=== PATIENT | male | born 1955 | race Caucasian/White ===

== ENCOUNTER 2017-10-05 08:50 | Inpatient (IN) | payer SELFPAY ==
[2017-10-05] MEDS ORDERED: Diltiazem 125 MG/25 ML ONE (09:03)
[2017-10-05 09:10] LABS: #Basophils 0.1 thou/uL (0.0-0.2); #Eosinphils 0.2 thou/uL (0.0-0.7); #Lymphocytes 1.8 thou/uL (1.20-3.40); #Monocytes 0.6 thou/uL (0.11-0.59); #Neutrophils 3.9 thou/uL (1.40-6.50); %Basophils 1.3 % (0.0-1.0); %Eosinophils 2.4 % (0.0-10.0); %Monocytes 9.5 % (0.0-10.0); %Neutrophils 59.8 % (42.0-75.0); Hemoglobin 14.6 g/dL (14.0-18.0); Mean Corpuscular HGB CONC 33.4 g/dL (32.0-36.0); Mean Corpuscular Hemoglobin 30.1 pg (27.0-31.0); Mean Corpuscular Volume 90.1 fl (80.0-94.0); Mean Platelet Volume 7.8 fL (7.4-10.4); Platelet Count 201 thou/uL (130-400); RBC Distribution Width 13.2 % (11.5-14.5); Red Blood Cell (RBC) Count 4.85 mill/uL (4.70-6.10); White Blood Cell (WBC) Count 6.5 thou/uL (4.8-10.8)
[2017-10-05 09:25] LABS: Prothrombin Time 13.5 SEC (12.0-14.7)
[2017-10-05 09:26] LABS: PTT 26.8 SEC (22.9-36.1)
--- NOTE | 2017-10-05 09:30 | RAD ---
CHEST PA AND LATERAL: Date: 10/05/17 HISTORY: 61-year-old male with history of shortness of breath. COMPARISON: 04/07/16. FINDINGS: Heart size is normal. Stable increased bronchovascular markings bilaterally. Left granuloma calcifica tions. IMPRESSION: No acute intrathoracic disease. Stable from prior study. No confluent pneumonia, overt edema, pleural effusion, or other acute process. POS: EDWIN[facility]
[2017-10-05 09:34] LABS: ALT (SGPT) 95 U/L (8-55); AST (SGOT) 49 U/L (5-34); Albumin 4.2 g/dL (3.5-5.0); Alkaline Phosphatase 79 U/L (40-150); Anion Gap 13 mmol/L (10-20); BUN (Urea Nitrogen) 16 mg/dL (8.4-25.7); Bilirubin, Total 0.7 mg/dL (0.2-1.2); CK (CPK) 34 U/L (30-200); Calc. Creatinine Clearance 0 mL/min (70-130); Calcium 9.4 mg/dL (7.8-10.44); Carbon Dioxide 23 mmol/L (22-29); Chloride 105 mmol/L (98-107); Estimated GFR-MDRD 83; Globulin 2.8 g/dL (2.4-3.5); Glucose 190 mg/dL (70-105); Lipase 28 U/L (8-78); Potassium 4.4 mmol/L (3.5-5.1); Sodium 137 mmol/L (136-145)
[2017-10-05 09:39] LABS: CKMB 1.5 ng/mL (0-6.6)
[2017-10-05] MEDS ORDERED: Sodium Chloride 0.9% 1,000 ML IV SCH (09:45)
[2017-10-05] MEDS ORDERED: Diltiazem 125 MG in Sodium Chloride 0.9% 100 ML IVPB SCH ×2 (09:45→12:15)
[2017-10-05] MEDS ORDERED: Enoxaparin Sodium 100 MG/ML SYRINGE ONE (10:18)
[2017-10-05 10:28] LABS: Magnesium 1.7 mg/dL (1.6-2.6); Phosphorus 3.7 mg/dL (2.3-4.7)
[2017-10-05] MEDS ORDERED: Ondansetron ODT 4 MG TAB SL PRN (11:44)
[2017-10-05] MEDS ORDERED: Ondansetron HCl/PF 4 MG/2 ML Vial IVP PRN ×2 (11:44→12:05)
[2017-10-05] MEDS ORDERED: HYDROcodone/Acetaminophen 5/325 mg Tablet PO PRN (12:05)
[2017-10-05] MEDS ORDERED: Artificial Tears 18 DROP/0.9 ML EA EYE PRN (12:05)
[2017-10-05] MEDS ORDERED: Eucerin (Mineral Oil/Petrolatum,White) 30 gm Jar TOP PRN (12:05)
[2017-10-05] MEDS ORDERED: Chloraseptic Spray 180 ml Bottle PO PRN (12:05)
[2017-10-05] MEDS ORDERED: Ondansetron ODT 4 MG TAB PO PRN (12:05)
[2017-10-05] MEDS ORDERED: Loperamide HCl 2 MG CAP PO PRN (12:05)
[2017-10-05] MEDS ORDERED: Labetalol HCl 100 MG/20 ML VIAL SLOW IVP PRN (12:05)
[2017-10-05] MEDS ORDERED: Loratadine 10 MG TAB PO PRN (12:05)
[2017-10-05] MEDS ORDERED: Milk Of Magnesia 30 ML UDCUP PO PRN (12:05)
[2017-10-05] MEDS ORDERED: Acetaminophen 325 MG TAB PO PRN (12:05)
[2017-10-05] MEDS ORDERED: Senokot 8.6 MG TAB PO PRN (12:05)
[2017-10-05] MEDS ORDERED: Diabetic Tussin 200 MG/10 ML UDCUP PO PRN (12:05)
[2017-10-05] MEDS ORDERED: Zolpidem Tartrate 5 MG TAB PO PRN (12:05)
[2017-10-05] MEDS ORDERED: Nitroglycerin 0.4 MG TAB (25 Tab Bottle) PO PRN (12:05)
[2017-10-05] MEDS ORDERED: Sodium Chloride 0.65% Nasal 44 ML BOT EA NARE PRN (12:05)
[2017-10-05] MEDS ORDERED: Mag-Al 1200 mg/1200 mg/30 ML UDCUP PO PRN (12:05)
[2017-10-05] MEDS ORDERED: HumaLOG 300 UNITS/3 ML VIAL SC PRN (12:08)
[2017-10-05] MEDS ORDERED: Dextrose 5% in Water 1,000 ML IV PRN (12:08)
[2017-10-05] MEDS ORDERED: Dextrose 50% Abboject 50 ML SYRINGE SLOW IVP PRN (12:08)
[2017-10-05 12:36] LABS: Troponin I Less than 0.010 ng/mL (< 0.028)
[2017-10-05 12:53] VITALS: BMI 37.2
--- NOTE | 2017-10-05 15:30 | HP ---
PRIMARY CARE PHYSICIAN: Dr. Colton Diaz. REASON FOR ADMISSION: Dyspnea new onset atrial fibrillation with rapid ventricular response. HISTORY OF PRESENT ILLNESS: A 61-year-old male, who has history of diabetes type 2 as well as underl pao obesity, who was experiencing dyspnea on exertion for about a month. He describes that whenever he was exerting himself, he was getting out of breath, which was new for him for about a month befor e that he was able to do all activities without any problem. For the last 2 weeks during night time, he was experiencing dyspnea and sometimes he was having difficulty sleeping because of dyspnea. He was feeling as if he cannot catch his breath, though he was not experiencing any chest pain with that , the patient was ignoring his symptoms but last night, he had bad experience, he was not able to cat ch breath and he was feeling more short of breath. He was feeling palpitations, little bit dizziness , and that is why he decided to come to emergency room for evaluation today. The patient did not rep ort any chest pain to me. He describes dyspnea even in lying down position and sometimes gets worse with exertion. He never had any previous history of atrial fibrillation, but when he came to emergen cy room today, EKG showed atrial fibrillation with RVR with heart rate in 165. All other blood test was unremarkable. The patient was started on Cardizem drip and subsequently he was admitted to telem etry floor. When I saw this patient, at that time, still his heart rate was in the 120s. He denied any chest brianna n. He also complains that he still feels shortness of breath, but he was on room air, saturating nor mal and without any use of accessory muscles of respiration. He denies any UTI symptoms. He denies any constipation, diarrhea, melena, hematochezia. He denies any focal motor or sensory symptoms. He denies any headache or syncope. He denies any fever or chills. He denies any cough, hemoptysis. H e denies any lower extremity edema, calf tenderness. He denies any recent travel or sick exposure. REVIEW OF SYSTEMS: The following complete review of systems was negative, unless otherwise mentioned in the HPI or below: Constitutional: Weight loss or gain, ability to conduct usual activities. Skin: Rash, itching. Eyes: Double vision, pain. ENT/Mouth: Nose bleeding, neck stiffness, pain, tenderness. Cardiovascular: Palpitations, dyspnea on exertion, orthopnea. Respiratory: Shortness of breath, wheezing, cough, hemoptysis, fever or night sweats. Gastrointestinal: Poor appetite, abdominal pain, heartburn, nausea, vomiting, constipation, or diarr hea. Genitourinary: Urgency, frequency, dysuria, nocturia. Musculoskeletal: Pain, swelling. Neurologic/Psychiatric: Anxiety, depression. Allergy/Immunologic: Skin rash, bleeding tendency. Please see my HPI for pertinent positive and negative. All other review of systems reviewed and nega tive except as mentioned in the HPI. ALLERGIES: No known drug allergies. CURRENT HOME MEDICATIONS: Metformin 1000 mg p.o. b.i.d. PAST MEDICAL HISTORY: Diabetes type 2, dyslipidemia, not on any medication, but he is trying to cont rol with diet, obesity. PAST SURGICAL HISTORY: Left shoulder surgery, appendicectomy. PAST PSYCHIATRIC HISTORY: Reviewed and negative. SOCIAL HISTORY: The patient drinks alcohol occasionally on weekends. He denies any smoking. He den ies any other illicit drug abuse. FAMILY HISTORY: No strong family history of premature coronary artery disease, stroke or cancer. No family history of irregular heart rate or sudden cardiac . EMERGENCY ROOM COURSE: The patient is given Lovenox 1 mg per kg, Cardizem drip started. After Cardi zem 20 mg bolus given 1 liter IV fluid was given as well. PHYSICAL EXAMINATION: VITAL SIGNS: On arrival, blood pressure 111/94, pulse 165, respiratory rate 22, temperature 98.0, sa turation 96% on room air, weight 108.8 kilograms. GENERAL: The patient is currently alert, awake, in no obvious acute distress. HEENT: Normocephalic, atraumatic. Eyes: Pupils round, reactive to light. Extraocular muscle intac t. ENT: Oropharynx within normal limits. Moist mucous membranes. No oral lesion, no pharyngeal er ythema, no exudate. NECK: Supple, no JVD, no thyromegaly, no carotid bruit, no jugular venous distention. LUNGS: Clear to auscultation without any rhonchi or rales. CARDIAC: S1 and S2 irregularly irregular. No murmur elicited, no gallop, no rub. ABDOMEN: Obesity present. Bowel sounds present, nontender, nondistended. No organomegaly, no mass, no suprapubic tenderness, no peritoneal sign. BACK: Unremarkable. No CVA tenderness. EXTREMITIES: Upper extremity passive movement of all joints are normal. Lower extremity, trace lowe r extremity edema noted. Good distal pulsation. No calf tenderness. SKIN: No skin rash. HEMATOLOGIC: No lymphadenopathy. PSYCHIATRIC: Normal affect. NEUROLOGIC: Nonfocal examination. He moves all 4 limbs. Speech normal. Planter bilateral flexor. SIGNIFICANT LABORATORY DATA: EKG showing atrial fibrillation with rapid ventricular response. Chest x-ray showed no acute cardiopulmonary process. CBC: WBC 6.5, hemoglobin 14.6, platelet 201. INR 1 .0, lipase 28. CK 234. BMP shows sodium 137, potassium 4.4, chloride 105, carbon dioxide 23, anion gap 13, BUN 16, creatinine 0.93, glucose 190, calcium 9.4. LFT: Protein 7.0, albumin 4.2, AST 49, ALT 95. BNP 363.9, troponin I 0.010. ASSESSMENT AND PLAN: 1. Dyspnea ? angina equivalent. Description is atypical. He does not have any real chest pain, but he gets dyspnea on exertion. We will try to rule out underlying acute coronary syndrome. We will a lso obtain echocardiography to assess ejection fraction and other structural abnormality. He might h ave underlying diastolic dysfunction. He has elevated BNP. 2. New onset atrial fibrillation with rapid ventricular response, currently Cardizem drip started. TSH is normal. Cardiac enzymes are negative. He has 1 or 2 CHADS 2 score. At this point, we will s tart with Lovenox 1 mg per kg subcu twice daily. Cardiology will be consulted. If blood pressure is remaining low, then we will also consider giving digoxin for rate control. Echocardiography will be obtained and will monitor on telemetry floor. Transaminitis, most likely related with fatty liver, but we will check hepatitis profile tomorrow. 3. Elevated BNP, suspecting diastolic dysfunction. We will obtain echocardiography. 4. Diabetes type 2. We will continue with insulin as per sliding scale protocol. Diabetic diet farrah l be given and will resume metformin 1000 mg p.o. b.i.d. 5. Morbid obesity. Dietary education given, weight loss education given. Healthy lifestyle measure s discussed with the patient. 6. Deep venous thrombosis prophylaxis. The patient is already on full dose of Lovenox therapy. 7. Gastrointestinal prophylaxis. Pepcid 20 mg p.o. b.i.d. 8. Code status: The patient is FULL CODE. The patient does not have any surrogate decision maker. He makes his own decisions. 9. Disposition plan based on clinical course. We are expecting patient's stay more than 2 midnights . Plan of care discussed with the patient in detail.
[2017-10-05 15:51] LABS: Troponin I 0.016 ng/mL (< 0.028)
[2017-10-05] MEDS ORDERED: Furosemide 40 MG/4 ML VIAL SLOW IVP SCH (17:00)
--- NOTE | 2017-10-05 17:22 | CON ---
DATE OF SERVICE: 10/05/2017 REASON FOR CONSULTATION: Atrial fibrillation, rapid ventricular response. HISTORY OF PRESENT ILLNESS: Mr. Holley is a very pleasant 61-year-old white gentleman who comes to the hospital for increased shortness of breath. He has noticed increased shortness of breath for the last 3-4 months, but it was not up until 3 weeks ago that he noted that he would lie down and he cou ld not breathe. He has been sleeping on the couch pretty much sitting up all this time. Yesterday, it was so bad that he would not be able to be sitting down for even 2 or 3 minutes without having to lean forward to catch his breath, so he decided to come in for evaluation. In the ER, he was found t o be in atrial fibrillation, RVR, heart rate in the 160s, so he was admitted and placed on diltiazem drip. He is feeling a little bit better though. PAST MEDICAL HISTORY: Type 2 diabetes. PAST SURGICAL HISTORY: 1. Left shoulder surgery. 2. Appendectomy. OUTPATIENT MEDICATIONS: Metformin 1000 mg b.i.d. ALLERGIES: No known drug allergies. SOCIAL HISTORY: He drinks alcohol every day at least 2 or 3 beers and on the weekends 5-10 beers. N o tobacco, no drugs. FAMILY HISTORY: Noncontributory. REVIEW OF SYSTEMS: A 12-point review of systems was done and is all negative unless stated in the hi story of present illness. He denies any chest pain, tightness, pressure. PHYSICAL EXAMINATION: VITAL SIGNS: Temperature 98.0, pulse 113, respiration rate 18, satting 97% on room air, blood pressu re 122/89. GENERAL: Awake, alert, oriented x3, in no distress. HEENT: Normocephalic, atraumatic. NECK: Supple. LUNGS: Have reduced breath sounds with crackles at the bilateral bases. CARDIOVASCULAR: S1, S2, irregularly irregular heart rate in the 120s, soft grade 2/6 systolic murmur in the right upper sternal border. ABDOMEN: Prominent, but soft. MUSCULOSKELETAL: 1+ edema. SKIN: Warm and dry. LABORATORY WORK: Reviewed. CBC is unremarkable. Coags were unremarkable. Chemistry with a normal sodium and potassium, normal BUN and creatinine, GFR of 83, glucose was 190, total bilirubin was norm al. AST and ALT are little bit elevated. Troponin I is negative x3. BNP was 363. Normal TSH. Mag nesium and phosphatase are normal. EKG was reviewed, AFib, RVR. ASSESSMENT: 1. Atrial fibrillation with rapid ventricular response, new onset. 2. Paroxysmal nocturnal dyspnea and orthopnea. 3. Alcohol use. 4. Type 2 diabetes. PLAN: 1. I agree with the rate control at this time, we will continue diltiazem drip. We will increase th e rate at 10 mg per hour. 2. Continue full anticoagulation with Lovenox 1 mg/kg b.i.d. 3. Echocardiogram is pending. This is going to tell us where to go with the treatment if we need to do heart catheterization for cardiomyopathy versus just do possibly a YUDY cardioversion if he does n ot convert in the next day or two. Thank you for letting us participate in the care of your patient. We will follow.
[2017-10-05] MEDS: metFORMIN 500 MG TAB PO SCH (17:25)
[2017-10-05] MEDS: Diltiazem 125 MG in Sodium Chloride 0.9% 100 ML IVPB SCH (17:39)
[2017-10-05] MEDS ORDERED: Enoxaparin Sodium 80 MG/0.8 ML SYRINGE SC SCH (21:00)
[2017-10-05] MEDS: Famotidine 20 MG TAB PO SCH (21:07)
[2017-10-05] MEDS: Enoxaparin Sodium 120 MG/0.8 ML SYRINGE SC SCH (21:07)
[2017-10-06] MEDS: Furosemide 40 MG/4 ML VIAL SLOW IVP SCH ×2 (05:29→14:03)
[2017-10-06] MEDS: Diltiazem 125 MG in Sodium Chloride 0.9% 100 ML IVPB SCH ×2 (05:47→19:45)
[2017-10-06 05:48] LABS: #Eosinphils 0.3 thou/uL (0.0-0.7); #Lymphocytes 2.3 thou/uL (1.20-3.40); #Monocytes 0.7 thou/uL (0.11-0.59); #Neutrophils 3.7 thou/uL (1.40-6.50); %Basophils 0.7 % (0.0-1.0); %Eosinophils 3.7 % (0.0-10.0); %Monocytes 9.7 % (0.0-10.0); %Neutrophils 52.9 % (42.0-75.0); Hemoglobin 13.9 g/dL (14.0-18.0); Mean Corpuscular HGB CONC 33.4 g/dL (32.0-36.0); Mean Corpuscular Hemoglobin 29.9 pg (27.0-31.0); Mean Corpuscular Volume 89.4 fl (80.0-94.0); Mean Platelet Volume 7.8 fL (7.4-10.4); Platelet Count 182 thou/uL (130-400); RBC Distribution Width 13.4 % (11.5-14.5); Red Blood Cell (RBC) Count 4.66 mill/uL (4.70-6.10); White Blood Cell (WBC) Count 6.9 thou/uL (4.8-10.8)
[2017-10-06 06:01] LABS: ALT (SGPT) 73 U/L (8-55); AST (SGOT) 29 U/L (5-34); Albumin 3.9 g/dL (3.5-5.0); Alkaline Phosphatase 70 U/L (40-150); Anion Gap 11 mmol/L (10-20); BUN (Urea Nitrogen) 14 mg/dL (8.4-25.7); Bilirubin, Total 0.5 mg/dL (0.2-1.2); Calc. Creatinine Clearance 153 mL/min (70-130); Calcium 9.2 mg/dL (7.8-10.44); Carbon Dioxide 26 mmol/L (22-29); Cardiac Risk 3.4 (Less than 4.5); Chloride 103 mmol/L (98-107); Cholesterol 171 mg/dl (< 200 Desired); Estimated GFR-MDRD Greater than 90; Globulin 2.6 g/dL (2.4-3.5); Glucose 151 mg/dL (70-105); HDL Cholesterol 50 mg/dL (>60 Neg Risk); LDL Cholesterol, Calculated 87 mg/dL; Protein, Total 6.5 g/dL (6.0-8.3); Sodium 136 mmol/L (136-145); Triglycerides 169 mg/dL (Less than 150)
[2017-10-06 06:20] LABS: HBCM Index 0.08 S/CO (0-0.79); HBSAg Index 0.21 S/CO (0-0.99); Hep A IgM AB Non-Reactive (NonReactive); Hep A IgM S/CO 0.06 S/CO (0-0.79); Hep B Surf Ag Non-Reactive S/CO (NonReactive); Hep C IgG Ab Non-Reactive (NonReactive); Hep C Index 0.11 S/CO (0-0.79); Hepatitis B Core IGM Abs Non-Reactive (NonReactive)
[2017-10-06] MEDS: metFORMIN 500 MG TAB PO SCH ×2 (08:13→18:03)
[2017-10-06] MEDS: Aspirin 325 MG TAB PO SCH (08:13)
[2017-10-06] MEDS: Enoxaparin Sodium 120 MG/0.8 ML SYRINGE SC SCH ×2 (08:13→21:25)
[2017-10-06] MEDS: Famotidine 20 MG TAB PO SCH (08:13)
--- NOTE | 2017-10-06 15:43 | PDOC.PN ---
- Subjective Encounter Start Date: 10/06/17 Encounter Start Time: 08:30 Patient seen and examined for Afib with RVR. No CP/SOB. No new complaints. No overnight events - Objective Resuscitation Status: Resuscitation Status FULL:Full Resuscitation MAR Reviewed: Yes Vital Signs & Weight: Vital Signs (12 hours) Temp Pulse Resp BP Pulse Ox 10/06/17 12:00 98.0 F 80 18 121/71 95 10/06/17 07:29 98.1 F 66 18 94 L 10/06/17 07:28 98.1 F 66 18 114/75 94 L 10/06/17 04:00 97.5 F L 66 20 112/77 95 I&O: 10/05/17 10/06/17 10/07/17 06:59 06:59 06:59 Intake Total 1220 240 Output Total 4850 Balance -3630 240 Result Diagrams: 10/06/17 05:13 10/06/17 05:14 Additional Labs: Accuchecks 10/06/17 10/06/17 10/05/17 11:19 05:42 21:13 POC Glucose 156 H 164 H 106 10/05/17 16:22 POC Glucose 126 H EKG Reviewed by me: Yes (Tele Afib) Phys Exam - Physical Examination Constitutional: NAD Respiratory: no wheezing, no rhonchi Cardiovascular: no rub, irregular Gastrointestinal: soft, non-tender, positive bowel sounds Musculoskeletal: no edema Neurological: moves all 4 limbs Dx/Plan (1) Atrial fibrillation with RVR Code(s): I48.91 - UNSPECIFIED ATRIAL FIBRILLATION Status: Acute Comment: New onset (2) DM2 (diabetes mellitus, type 2) Status: Chronic (3) Obesity (BMI 30-39.9) Code(s): E66.9 - OBESITY, UNSPECIFIED Status: Chronic (4) Chronic alcohol use Code(s): Z72.89 - OTHER PROBLEMS RELATED TO LIFESTYLE Status: Chronic - Plan DVT proph w/lovenox, DVT proph w/SCDs Cont Lovenox/Cardizem drip -: Await Echo -: Cont Metformin with sliding scale -: AM labs -: Cont current meds as below Review of Systems - Review of Systems Respiratory: negative: Cough, Dry, Shortness of Breath, Hemoptysis, SOB with Excertion, Pleuritic Pain, Sputum, Wheezing Cardiovascular: negative: chest pain, palpitations, orthopnea, paroxysmal nocturnal dyspnea, edema, light headedness, other - Medications/Allergies Allergies/Adverse Reactions: Allergies Allergy/AdvReac Type Severity Reaction Status Date / Time No Known Allergies Allergy Verified 10/05/17 12:48 Medications: Current Medications Acetaminophen (Tylenol) 650 mg PO Q4H PRN PRN Reason: Headache/Fever or Pain Hydrocodone Bitart/Acetaminophen ([place] 5/325) 1 tab PO Q4H PRN PRN Reason: Moderate Pain (4-6) Al Hydroxide/Mg Hydroxide (Maalox) 30 ml PO Q6H PRN PRN Reason: Heartburn or Indigestion Artificial Tears (Tears Naturale) 0 drop EA EYE PRN PRN PRN Reason: Dry Eyes Aspirin (Aspirin) 325 mg PO DAILY [facility] Last Admin: 10/06/17 08:13 Dose: 325 mg Dextrose/Water (Dextrose 50%) 25 gm SLOW IVP PRN PRN PRN Reason: Hypoglycemia Enoxaparin Sodium (Lovenox) 115 mg SC 0900,2100 [facility] Last Admin: 10/06/17 08:13 Dose: 115 mg Famotidine (Pepcid) 20 mg PO BID [facility] Last Admin: 10/06/17 08:13 Dose: 20 mg Furosemide (Lasix) 40 mg SLOW IVP 0600,1400 [facility] Last Admin: 10/06/17 14:03 Dose: 40 mg Glucagon (Glucagon) 1 mg IM PRN PRN PRN Reason: Hypoglycemia Guaifenesin (Robitussin Sf) 200 mg PO Q4H PRN PRN Reason: Cough Dextrose/Water (D5w) 1,000 mls @ 0 mls/hr IV .Q0M PRN; As Directed PRN Reason: Hypoglycemia Diltiazem HCl 125 mg/ Sodium (Chloride) 125 mls @ 10 mls/hr IVPB INF MAHOGANY; 10 MG /HR PRN Reason: Protocol Last Admin: 10/06/17 05:47 Dose: 125 mls Insulin Human Lispro (Humalog) 0 units SC .MODERATE SLIDING SC PRN PRN Reason: Moderate Correctional Scale Insulin Human Lispro (Humalog) 0 units SC .BEDTIME SLIDING SC PRN PRN Reason: Bedtime Correctional Scale Labetalol HCl (Normodyne) 20 mg SLOW IVP Q4H PRN PRN Reason: Systolic BP > 180 Loperamide HCl (Imodium) 2 mg PO PRN PRN PRN Reason: Diarrhea/Loose Stools Loratadine (Claritin) 10 mg PO DAILYPRN PRN PRN Reason: Sinus Symptoms Magnesium Hydroxide (Milk Of Magnesium) 30 ml PO DAILYPRN PRN PRN Reason: Constipation Metformin HCl (Glucophage) 1,000 mg PO BID-[facility] Last Admin: 10/06/17 08:13 Dose: 1,000 mg Mineral Oil/White Petrolatum (Eucerin Cream) 0 gm TOP BIDPRN PRN PRN Reason: Dry Skin Nitroglycerin (Nitrostat) 0.4 mg PO Q5MIN PRN PRN Reason: Chest Pain Ondansetron HCl (Zofran Odt) 4 mg PO Q6H PRN PRN Reason: Nausea/Vomiting Ondansetron HCl (Zofran) 4 mg IVP Q6H PRN PRN Reason: Nausea/Vomiting Phenol (Chloraseptic [place] 180 Ml Bot) 0 ml PO PRN PRN PRN Reason: Sore Throat Senna (Senokot) 2 tab PO HSPRN PRN PRN Reason: Constipation Sodium Chloride ([place] Nasal [place] 0.65%) 0 ml EA NARE QIDPRN PRN PRN Reason: Nasal Congestion Zolpidem Tartrate (Ambien) 5 mg PO HSPRN PRN PRN Reason: Insomnia
--- NOTE | 2017-10-06 15:50 | PDOC.CTH ---
Cardiology Progress Note - Subjective He is doing better. He is able to lay flatter on the bed. - Objective Vital Signs Temp Pulse Resp BP Pulse Ox 10/06/17 12:00 98.0 F 80 18 121/71 95 10/06/17 07:29 98.1 F 66 18 94 L 10/06/17 07:28 98.1 F 66 18 114/75 94 L 10/06/17 04:00 97.5 F L 66 20 112/77 95 10/05/17 10/06/17 10/07/17 06:59 06:59 06:59 Intake Total 1220 240 Output Total 4850 Balance -3630 240 - Physical Examination General/Neuro: alert & oriented x3, NAD Neck: no JVD present Lungs: CTA, unlabored respirations Heart: other: (irreg) Abdomen: NT/ND Extremities: + edema B (1+) - Telemetry Telemetry Rhythm: Afib HR 70's. - Labs Result Diagrams: 10/06/17 05:13 10/06/17 05:14 Troponin/CKMB CK-MB (CK-2) 1.5 ng/mL (0-6.6) 10/05/17 09:01 Troponin I 0.016 ng/mL (< 0.028) 10/05/17 15:16 - Assessment/Plan 1. New onset afib RVR, rate control. 2. New onset dilated CM 3. LVEF at 20-25% 4. Alcohol use 5. Type 2 DM PLAN: - Continue IV diuresis. - Will need [facility] Saturday to assess for ischemia as cause of LV dysfunction. - If non ischemic will plan on doing YUDY Cardioversion Saturday. - Continue IV diuresis. - We spoke about risks and benefits of procedure and he agrees to proceed.
[2017-10-06] MEDS ORDERED: Communication Order-Pharmacy FS SCH (16:00)
[2017-10-06] MEDS ORDERED: Labetalol HCl 100 MG/20 ML VIAL SLOW IVP PRN (19:43)
[2017-10-06] MEDS: Multivit, Therapeutic 1 TAB PO SCH (21:27)
[2017-10-06] MEDS: Folic Acid 1 MG TAB PO SCH (21:27)
[2017-10-07] MEDS: Diltiazem 125 MG in Sodium Chloride 0.9% 100 ML IVPB SCH ×2 (05:41→17:59)
[2017-10-07] MEDS: Furosemide 40 MG/4 ML VIAL SLOW IVP SCH ×2 (05:41→14:21)
[2017-10-07] MEDS: Aspirin 325 MG TAB PO SCH (05:41)
[2017-10-07 05:52] LABS: #Basophils 0.1 thou/uL (0.0-0.2); #Eosinphils 0.2 thou/uL (0.0-0.7); #Lymphocytes 2.2 thou/uL (1.20-3.40); #Monocytes 0.7 thou/uL (0.11-0.59); #Neutrophils 2.7 thou/uL (1.40-6.50); %Basophils 1.4 % (0.0-1.0); %Eosinophils 3.9 % (0.0-10.0); %Lymphocytes 37.1 % (21.0-51.0); %Neutrophils 45.6 % (42.0-75.0); Hemoglobin 14.9 g/dL (14.0-18.0); Mean Corpuscular Hemoglobin 30.2 pg (27.0-31.0); Mean Platelet Volume 7.5 fL (7.4-10.4); Platelet Count 193 thou/uL (130-400); RBC Distribution Width 13.1 % (11.5-14.5); Red Blood Cell (RBC) Count 4.92 mill/uL (4.70-6.10); White Blood Cell (WBC) Count 5.9 thou/uL (4.8-10.8)
[2017-10-07 06:01] LABS: Anion Gap 10 mmol/L (10-20); BUN (Urea Nitrogen) 14 mg/dL (8.4-25.7); BUN/Creatinine Ratio 16.28; Calc. Creatinine Clearance 150 mL/min (70-130); Calcium 9.4 mg/dL (7.8-10.44); Carbon Dioxide 30 mmol/L (22-29); Chloride 101 mmol/L (98-107); Estimated GFR-MDRD Greater than 90; Glucose 147 mg/dL (70-105); Magnesium 1.9 mg/dL (1.6-2.6); Phosphorus 4.1 mg/dL (2.3-4.7); Potassium 3.7 mmol/L (3.5-5.1); Sodium 137 mmol/L (136-145)
[2017-10-07] MEDS ORDERED: Iopamidol 370 76% 100 ML VIAL ONE (07:26)
[2017-10-07] MEDS ORDERED: Lidocaine 1% (PF) 30 ML VIAL ONE (10:32)
[2017-10-07] MEDS ORDERED: Fentanyl 100 MCG/2 ML VIAL ONE (11:05)
[2017-10-07] MEDS ORDERED: Midazolam HCl 2 mg/2 ml Vial ONE (11:05)
[2017-10-07] MEDS ORDERED: Nitroglycerin 100MG/250ML BOT 250 ML ONE (11:14)
[2017-10-07] MEDS ORDERED: Verapamil 5 MG/2 ML VIAL ONE (11:14)
[2017-10-07] MEDS ORDERED: Heparin 10,000 UNITS/1 ML VIAL ONE (11:14)
[2017-10-07] MEDS ORDERED: Acetaminophen/Codeine 30-300mg Tablet PO PRN (11:57)
[2017-10-07] MEDS ORDERED: traMADol HCl 50 MG TAB PO PRN (11:57)
[2017-10-07] MEDS ORDERED: Sodium Chloride 0.9% 200 ML IV SCH (12:00)
[2017-10-07] MEDS ORDERED: metFORMIN 500 MG TAB PO SCH (17:00)
[2017-10-07] MEDS: Folic Acid 1 MG TAB PO SCH (21:54)
[2017-10-07] MEDS: Multivit, Therapeutic 1 TAB PO SCH (21:54)
--- NOTE | 2017-10-07 22:25 | PDOC.PN ---
- Subjective Encounter Start Date: 10/07/17 Encounter Start Time: 09:30 Patient seen and examined for Afib/CHF. No new complaints. No overnight events - Objective Resuscitation Status: Resuscitation Status FULL:Full Resuscitation MAR Reviewed: Yes Vital Signs & Weight: Vital Signs (12 hours) Temp Pulse Resp BP Pulse Ox 10/07/17 15:00 98.4 F 67 16 113/78 94 L 10/07/17 11:57 77 17 108/68 92 L I&O: 10/06/17 10/07/17 10/08/17 06:59 06:59 06:59 Intake Total 7099 800 1718 Output Total 4850 4100 2850 Balance -5360 -3140 -8659 Result Diagrams: 10/07/17 05:26 10/07/17 05:26 Additional Labs: Accuchecks 10/07/17 10/07/17 10/07/17 20:38 16:26 05:53 POC Glucose 130 H 111 H 171 H 10/06/17 21:22 POC Glucose 129 H EKG Reviewed by me: Yes (Tele Afib) Phys Exam - Physical Examination Constitutional: NAD Respiratory: no wheezing, no rhonchi Cardiovascular: no rub, irregular Gastrointestinal: soft, non-tender, positive bowel sounds Musculoskeletal: no edema Neurological: moves all 4 limbs Dx/Plan (1) Atrial fibrillation with RVR Code(s): I48.91 - UNSPECIFIED ATRIAL FIBRILLATION Status: Acute Comment: New onset (2) DM2 (diabetes mellitus, type 2) Status: Chronic (3) Obesity (BMI 30-39.9) Code(s): E66.9 - OBESITY, UNSPECIFIED Status: Chronic (4) Chronic alcohol use Code(s): Z72.89 - OTHER PROBLEMS RELATED TO LIFESTYLE Status: Chronic (5) New onset of congestive heart failure Code(s): I50.9 - HEART FAILURE, UNSPECIFIED Status: Acute Comment: Systolic - Plan DVT proph w/SCDs Cath today -: Cont Cardizem drip -: AM labs -: Cont to monitor -: HF education Review of Systems - Review of Systems Respiratory: negative: Cough, Dry, Shortness of Breath, Hemoptysis, SOB with Excertion, Pleuritic Pain, Sputum, Wheezing Cardiovascular: negative: chest pain, palpitations, orthopnea, paroxysmal nocturnal dyspnea, edema, light headedness, other - Medications/Allergies Allergies/Adverse Reactions: Allergies Allergy/AdvReac Type Severity Reaction Status Date / Time No Known Allergies Allergy Verified 10/05/17 12:48 Medications: Current Medications Acetaminophen (Tylenol) 650 mg PO Q4H PRN PRN Reason: Headache/Fever or Pain Acetaminophen/Codeine Phosphate (Tylenol #3) 1 tab PO Q4H PRN PRN Reason: Mild Pain (1-3) Hydrocodone Bitart/Acetaminophen ([place] 5/325) 1 tab PO Q4H PRN PRN Reason: Moderate Pain (4-6) Al Hydroxide/Mg Hydroxide (Maalox) 30 ml PO Q6H PRN PRN Reason: Heartburn or Indigestion Artificial Tears (Tears Naturale) 0 drop EA EYE PRN PRN PRN Reason: Dry Eyes Aspirin (Aspirin) 325 mg PO DAILY [facility] Last Admin: 10/07/17 05:41 Dose: 325 mg Dextrose/Water (Dextrose 50%) 25 gm SLOW IVP PRN PRN PRN Reason: Hypoglycemia Folic Acid (Folvite) 1 mg PO HS [facility] Last Admin: 10/07/17 21:54 Dose: 1 mg Furosemide (Lasix) 40 mg SLOW IVP 0600,1400 [facility] Last Admin: 10/07/17 14:21 Dose: 40 mg Glucagon (Glucagon) 1 mg IM PRN PRN PRN Reason: Hypoglycemia Guaifenesin (Robitussin Sf) 200 mg PO Q4H PRN PRN Reason: Cough Dextrose/Water (D5w) 1,000 mls @ 0 mls/hr IV .Q0M PRN; As Directed PRN Reason: Hypoglycemia Diltiazem HCl 125 mg/ Sodium (Chloride) 125 mls @ 10 mls/hr IVPB INF MAHOGANY; 10 MG /HR PRN Reason: Protocol Last Admin: 10/07/17 17:59 Dose: 125 mls Insulin Human Lispro (Humalog) 0 units SC .MODERATE SLIDING SC PRN PRN Reason: Moderate Correctional Scale Insulin Human Lispro (Humalog) 0 units SC .BEDTIME SLIDING SC PRN PRN Reason: Bedtime Correctional Scale Labetalol HCl (Normodyne) 10 mg SLOW IVP Q4H PRN PRN Reason: Systolic BP > 180 Loperamide HCl (Imodium) 2 mg PO PRN PRN PRN Reason: Diarrhea/Loose Stools Loratadine (Claritin) 10 mg PO DAILYPRN PRN PRN Reason: Sinus Symptoms Magnesium Hydroxide (Milk Of Magnesium) 30 ml PO DAILYPRN PRN PRN Reason: Constipation Mineral Oil/White Petrolatum (Eucerin Cream) 0 gm TOP BIDPRN PRN PRN Reason: Dry Skin Multivitamins (Theragran) 1 tab PO [facility] Last Admin: 10/07/17 21:54 Dose: 1 tab Ondansetron HCl (Zofran Odt) 4 mg PO Q6H PRN PRN Reason: Nausea/Vomiting Ondansetron HCl (Zofran) 4 mg IVP Q6H PRN PRN Reason: Nausea/Vomiting Phenol (Chloraseptic [place] 180 Ml Bot) 0 ml PO PRN PRN PRN Reason: Sore Throat Senna (Senokot) 2 tab PO HSPRN PRN PRN Reason: Constipation Sodium Chloride ([place] Nasal [place] 0.65%) 0 ml EA NARE QIDPRN PRN PRN Reason: Nasal Congestion Thiamine HCl (Thiamine) 100 mg PO [facility] Last Admin: 10/07/17 21:54 Dose: 100 mg Tramadol HCl (Ultram) 50 mg PO Q6H PRN PRN Reason: Moderate Pain (4-6) Zolpidem Tartrate (Ambien) 5 mg PO HSPRN PRN PRN Reason: Insomnia
[2017-10-08 05:21] LABS: Hemoglobin 15.5 g/dL (14.0-18.0); Platelet Count 213 thou/uL (130-400)
[2017-10-08 05:38] LABS: Anion Gap 9 mmol/L (10-20); BUN (Urea Nitrogen) 16 mg/dL (8.4-25.7); Calc. Creatinine Clearance 148 mL/min (70-130); Calcium 9.6 mg/dL (7.8-10.44); Carbon Dioxide 32 mmol/L (22-29); Chloride 100 mmol/L (98-107); Estimated GFR-MDRD 90; Glucose 151 mg/dL (70-105); Sodium 137 mmol/L (136-145)
[2017-10-08] MEDS: Furosemide 40 MG/4 ML VIAL SLOW IVP SCH (05:43)
[2017-10-08] MEDS: Diltiazem 125 MG in Sodium Chloride 0.9% 100 ML IVPB SCH (05:43)
[2017-10-08] MEDS ORDERED: PROPOFOL 0 ML ONE (08:37)
[2017-10-08] MEDS ORDERED: PROPOFOL 20 ML ONE (08:41)
[2017-10-08] MEDS ORDERED: Furosemide 20 MG TAB PO SCH (09:00)
--- NOTE | 2017-10-08 09:11 | ECHO ---
TRANSESOPHAGEAL ECHOCARDIOGRAM: DATE OF SERVICE: 10/08/17 PREPROCEDURE DIAGNOSIS: Atrial fibrillation. DETAILS: Transesophageal echo was performed to evaluate for left atrial appendage thrombus. He was brought to the PACU area for this, a planned YUDY and cardioversion. The anesthesia department provided sedation for the patient, please see their notes for details. After adequate sedation was achieved, the transe sophageal probe was advanced into the mouth and into the esophagus without issues. Multiplanar views were then obtained. FINDINGS: Left ventricle is mildly dilated with reduced LV systolic function, EF estimated at about 20-25%, wit h global hypokinesis. Right ventricle is normal size with reduced RV systolic function. Left atrium is moderately dilated. Left atrial appendage is a large, single lobed appendage, with reduced velocities and spontaneous ech o contrast, with a small thrombus starting to laminate. Right atrium is moderately dilated. Aortic valve is sclerotic, but opens well. No stenosis or regurgitation. Mitral valve structurally normal. There is mild MR. No stenosis. Tricuspid valve structurally normal. There is mild TR. No stenosis. Pulmonary valve structurally normal. Thoracic descending aorta is normal caliber with no atherosclerotic disease at the level of the arch. The distal part of the arch has grade III/V atherosclerotic disease. CONCLUSIONS: 1. Reduced systolic function, EF of 20-25%. 2. Moderately dilated atria. 3. Left atrial appendage with spontaneous echo contrast and a small thrombus. 4. Grade III/V atherosclerotic disease of the arch.
[2017-10-08] MEDS: Lisinopril 2.5 MG TAB PO SCH (10:12)
[2017-10-08] MEDS: Aspirin 325 MG TAB PO SCH (10:12)
[2017-10-08] MEDS: Amiodarone 200 MG TAB PO SCH ×2 (10:12→20:18)
[2017-10-08] MEDS: Apixaban 5 MG TAB PO SCH ×2 (10:14→20:18)
[2017-10-08] MEDS: Furosemide 40 MG TAB PO SCH ×2 (10:14→13:20)
[2017-10-08] MEDS ORDERED: PROPOFOL 200 MG/20 ML VIAL ONE (15:56)
[2017-10-08] MEDS: Carvedilol 3.125 MG TAB PO SCH (16:40)
[2017-10-08] MEDS: Multivit, Therapeutic 1 TAB PO SCH (20:18)
[2017-10-08] MEDS: Folic Acid 1 MG TAB PO SCH (20:18)
--- NOTE | 2017-10-08 21:46 | PDOC.PN ---
- Subjective Encounter Start Date: 10/08/17 Encounter Start Time: 11:00 Patient seen and examined for Afib. No new complaints. No overnight events - Objective Resuscitation Status: Resuscitation Status FULL:Full Resuscitation MAR Reviewed: Yes Vital Signs & Weight: Vital Signs (12 hours) Temp Pulse Resp BP Pulse Ox 10/08/17 16:30 98.1 F 68 17 128/60 95 10/08/17 13:12 98.1 F 87 17 101/73 95 10/08/17 10:12 96 Weight Weight 233 lb 8 oz I&O: 10/07/17 10/08/17 10/09/17 06:59 06:59 06:59 Intake Total 960 2186 1200 Output Total 4100 4400 1728 Balance -3140 -2214 -525 Result Diagrams: 10/08/17 04:50 10/08/17 04:50 Additional Labs: Accuchecks 10/08/17 10/08/17 10/08/17 16:06 11:20 05:50 POC Glucose 116 H 239 H 202 H EKG Reviewed by me: Yes (Tele Afib) Phys Exam - Physical Examination Constitutional: NAD Respiratory: no wheezing, no rhonchi Cardiovascular: no rub, irregular Gastrointestinal: soft, non-tender, positive bowel sounds Musculoskeletal: no edema Neurological: moves all 4 limbs Dx/Plan (1) Atrial fibrillation with RVR Code(s): I48.91 - UNSPECIFIED ATRIAL FIBRILLATION Status: Acute Comment: New onset, Off drip, YUDY - thrombus (No CV done) (2) DM2 (diabetes mellitus, type 2) Status: Chronic Qualifiers: Chronic kidney disease stage: stage 2 (mild) (3) Obesity (BMI 30-39.9) Code(s): E66.9 - OBESITY, UNSPECIFIED Status: Chronic (4) Chronic alcohol use Code(s): Z72.89 - OTHER PROBLEMS RELATED TO LIFESTYLE Status: Chronic Comment: Counselled. (5) New onset of congestive heart failure Code(s): I50.9 - HEART FAILURE, UNSPECIFIED Status: Acute Comment: Systolic , on ACEI/BB - Plan Started on Amiodarone with Eliquis -: No CV due to intraatrial clot -: Cont to monitor -: DC in AM if ok with Cardio -: Counselled on HF/Alcohol cessation Review of Systems - Review of Systems Respiratory: negative: Cough, Dry, Shortness of Breath, Hemoptysis, SOB with Excertion, Pleuritic Pain, Sputum, Wheezing Cardiovascular: negative: chest pain, palpitations, orthopnea, paroxysmal nocturnal dyspnea, edema, light headedness, other - Medications/Allergies Allergies/Adverse Reactions: Allergies Allergy/AdvReac Type Severity Reaction Status Date / Time No Known Allergies Allergy Verified 10/05/17 12:48 Medications: Current Medications Acetaminophen (Tylenol) 650 mg PO Q4H PRN PRN Reason: Headache/Fever or Pain Acetaminophen/Codeine Phosphate (Tylenol #3) 1 tab PO Q4H PRN PRN Reason: Mild Pain (1-3) Hydrocodone Bitart/Acetaminophen ([place] 5/325) 1 tab PO Q4H PRN PRN Reason: Moderate Pain (4-6) Al Hydroxide/Mg Hydroxide (Maalox) 30 ml PO Q6H PRN PRN Reason: Heartburn or Indigestion Amiodarone HCl (Cordarone) 400 mg PO BID [facility] Last Admin: 10/08/17 20:18 Dose: 400 mg Apixaban (Eliquis) 5 mg PO BID [facility] Last Admin: 10/08/17 20:18 Dose: 5 mg Artificial Tears (Tears Naturale) 0 drop EA EYE PRN PRN PRN Reason: Dry Eyes Aspirin (Ecotrin) 81 mg PO DAILY [facility] Carvedilol (Coreg) 3.125 mg PO BID-[facility] Last Admin: 10/08/17 16:40 Dose: 3.125 mg Dextrose/Water (Dextrose 50%) 25 gm SLOW IVP PRN PRN PRN Reason: Hypoglycemia Folic Acid (Folvite) 1 mg PO [facility] Last Admin: 10/08/17 20:18 Dose: 1 mg Furosemide (Lasix) 40 mg PO 0900,1400 [facility] Last Admin: 10/08/17 13:20 Dose: 40 mg Glucagon (Glucagon) 1 mg IM PRN PRN PRN Reason: Hypoglycemia Guaifenesin (Robitussin Sf) 200 mg PO Q4H PRN PRN Reason: Cough Dextrose/Water (D5w) 1,000 mls @ 0 mls/hr IV .Q0M PRN; As Directed PRN Reason: Hypoglycemia Insulin Human Lispro (Humalog) 0 units SC .MODERATE SLIDING SC PRN PRN Reason: Moderate Correctional Scale Insulin Human Lispro (Humalog) 0 units SC .BEDTIME SLIDING SC PRN PRN Reason: Bedtime Correctional Scale Labetalol HCl (Normodyne) 10 mg SLOW IVP Q4H PRN PRN Reason: Systolic BP > 180 Lisinopril (Zestril) 1.25 mg PO DAILY [facility] Last Admin: 10/08/17 10:12 Dose: 1.25 mg Loperamide HCl (Imodium) 2 mg PO PRN PRN PRN Reason: Diarrhea/Loose Stools Loratadine (Claritin) 10 mg PO DAILYPRN PRN PRN Reason: Sinus Symptoms Magnesium Hydroxide (Milk Of Magnesium) 30 ml PO DAILYPRN PRN PRN Reason: Constipation Mineral Oil/White Petrolatum (Eucerin Cream) 0 gm TOP BIDPRN PRN PRN Reason: Dry Skin Multivitamins (Theragran) 1 tab PO [facility] Last Admin: 10/08/17 20:18 Dose: 1 tab Ondansetron HCl (Zofran Odt) 4 mg PO Q6H PRN PRN Reason: Nausea/Vomiting Ondansetron HCl (Zofran) 4 mg IVP Q6H PRN PRN Reason: Nausea/Vomiting Phenol (Chloraseptic [place] 180 Ml Bot) 0 ml PO PRN PRN PRN Reason: Sore Throat Senna (Senokot) 2 tab PO HSPRN PRN PRN Reason: Constipation Sodium Chloride ([place] Nasal [place] 0.65%) 0 ml EA NARE QIDPRN PRN PRN Reason: Nasal Congestion Sodium Chloride (Flush - Normal Saline) 10 ml IVF Q12HR [facility] Last Admin: 10/08/17 20:19 Dose: 10 ml Sodium Chloride (Flush - Normal Saline) 10 ml IVF PRN PRN PRN Reason: Saline Flush Thiamine HCl (Thiamine) 100 mg PO [facility] Last Admin: 10/08/17 20:18 Dose: 100 mg Tramadol HCl (Ultram) 50 mg PO Q6H PRN PRN Reason: Moderate Pain (4-6) Zolpidem Tartrate (Ambien) 5 mg PO HSPRN PRN PRN Reason: Insomnia
--- NOTE | 2017-10-09 08:13 | PDOC.CTH ---
Cardiology Progress Note - Subjective He is more tachycardic and more SOB today. He did not have his DCCV yesterday as he has a thrombus in his KENAN. - Objective Vital Signs Temp Pulse Resp BP BP Pulse Ox 10/09/17 07:35 99.7 F H 130 H 15 107/76 95 10/09/17 03:36 97.8 F 95 13 124/56 L 93 L 10/09/17 00:00 98.8 F 63 18 108/70 94 L Weight 234 lb 3.2 oz 10/08/17 10/09/17 10/10/17 06:59 06:59 06:59 Intake Total 2186 1560 Output Total 4400 2650 Balance -2214 -1090 - Physical Examination General/Neuro: alert & oriented x3, NAD Neck: no JVD present Lungs: unlabored respirations Heart: other: (Irreg) Abdomen: NT/ND Extremities: + edema B (1+) - Telemetry Telemetry Rhythm: Afib HR 130 - Labs Result Diagrams: 10/08/17 04:50 10/08/17 04:50 Troponin/CKMB CK-MB (CK-2) 1.5 ng/mL (0-6.6) 10/05/17 09:01 Troponin I 0.016 ng/mL (< 0.028) 10/05/17 15:16 - Assessment/Plan 1. New onset afib RVR 2. New onset dilated CM 3. LVEF at 20-25% 4. Alcohol use 5. Type 2 DM 6. KENAN thrombus PLAN: - Resume IV diuresis. - No ischemic CM. - Continue Eliquis. - Will switch Amio to IV for better rate control. - Borderline BP cant up titrate CCB or BB.
[2017-10-09] MEDS ORDERED: Amiodarone In Dextrose 200 ML IVPB SCH (08:15)
[2017-10-09] MEDS: Amiodarone HCl 450 MG in Dextrose 5% in Water 250 ML IVPB SCH ×2 (08:58→20:26)
[2017-10-09] MEDS: Carvedilol 3.125 MG TAB PO SCH ×2 (09:12→16:40)
[2017-10-09] MEDS: Apixaban 5 MG TAB PO SCH ×2 (09:12→20:26)
[2017-10-09] MEDS: Lisinopril 2.5 MG TAB PO SCH (09:12)
[2017-10-09] MEDS: Aspirin 81 mg Enteric Coated Tablet PO SCH (09:12)
[2017-10-09 10:04] LABS: ALT (SGPT) 55 U/L (8-55); AST (SGOT) 30 U/L (5-34); Albumin 4.1 g/dL (3.5-5.0); Alkaline Phosphatase 78 U/L (40-150); Anion Gap 15 mmol/L (10-20); BUN (Urea Nitrogen) 22 mg/dL (8.4-25.7); Bilirubin, Direct 0.2 mg/dL (0.1-0.3); Bilirubin, Total 0.6 mg/dL (0.2-1.2); Calc. Creatinine Clearance 111 mL/min (70-130); Carbon Dioxide 28 mmol/L (22-29); Chloride 97 mmol/L (98-107); Estimated GFR-MDRD 70; Glucose 179 mg/dL (70-105); Magnesium 1.9 mg/dL (1.6-2.6); Protein, Total 7.2 g/dL (6.0-8.3); Sodium 136 mmol/L (136-145)
[2017-10-09] MEDS: Furosemide 40 MG/4 ML VIAL SLOW IVP SCH (13:11)
[2017-10-09] MEDS ORDERED: Sodium Chloride 0.9% 250 ML 250 ML IVPB SCH (13:30)
[2017-10-09] MEDS ORDERED: Sodium Chloride 0.9% 250 ML IVPB SCH (14:00)
--- NOTE | 2017-10-09 14:47 | PDOC.PN ---
- Subjective Encounter Start Date: 10/09/17 Encounter Start Time: 09:00 Patient seen and examined for Afib with RVR. SOB on mild exertion. No new complaints. No overnight events - Objective Resuscitation Status: Resuscitation Status FULL:Full Resuscitation MAR Reviewed: Yes Vital Signs & Weight: Vital Signs (12 hours) Temp Pulse Resp BP BP BP Pulse Ox 10/09/17 11:05 97.5 F L 126 H 16 97/65 94 L 10/09/17 09:10 110 H 16 107/69 93 L 10/09/17 07:35 99.7 F H 130 H 15 107/76 95 10/09/17 03:36 97.8 F 95 13 124/56 L 93 L Weight Weight 234 lb 3.2 oz I&O: 10/08/17 10/09/17 10/10/17 06:59 06:59 06:59 Intake Total 2186 1560 Output Total 4400 2650 Balance -1884 -9450 Result Diagrams: 10/08/17 04:50 10/09/17 09:18 Additional Labs: Accuchecks 10/09/17 10/09/17 10/08/17 11:08 05:42 20:23 POC Glucose 136 H 143 H 188 H 10/08/17 16:06 POC Glucose 116 H EKG Reviewed by me: Yes (Tele Afib with RVR) Phys Exam - Physical Examination Constitutional: NAD Respiratory: no wheezing, no rhonchi Cardiovascular: no rub, irregular Gastrointestinal: soft, non-tender, positive bowel sounds Neurological: moves all 4 limbs Dx/Plan (1) Atrial fibrillation with RVR Code(s): I48.91 - UNSPECIFIED ATRIAL FIBRILLATION Status: Acute Plan: Started on Amiodarone drip, On Eliquis, Also on Coreg. Comment: New onset, YUDY - KENAN thrombus (No CV done) (2) DM2 (diabetes mellitus, type 2) Status: Chronic Qualifiers: Chronic kidney disease stage: stage 2 (mild) Plan: Cont sliding scale (3) Obesity (BMI 30-39.9) Code(s): E66.9 - OBESITY, UNSPECIFIED Status: Chronic Comment: Counselled (4) Chronic alcohol use Code(s): Z72.89 - OTHER PROBLEMS RELATED TO LIFESTYLE Status: Chronic Comment: Counselled. (5) New onset of congestive heart failure Code(s): I50.9 - HEART FAILURE, UNSPECIFIED Status: Acute Plan: IV diuretics, Cont ACEI/ARB, Counselled on HF/fluid restriction Comment: Systolic, on ACEI/BB Review of Systems - Review of Systems Respiratory: negative: Cough, Dry, Shortness of Breath, Hemoptysis, SOB with Excertion, Pleuritic Pain, Sputum, Wheezing Gastrointestinal: negative: Nausea, Vomiting, Abdominal Pain, Diarrhea, Constipation, Melena, Hematochezia, Other - Medications/Allergies Allergies/Adverse Reactions: Allergies Allergy/AdvReac Type Severity Reaction Status Date / Time No Known Allergies Allergy Verified 10/05/17 12:48 Medications: Current Medications Acetaminophen (Tylenol) 650 mg PO Q4H PRN PRN Reason: Headache/Fever or Pain Acetaminophen/Codeine Phosphate (Tylenol #3) 1 tab PO Q4H PRN PRN Reason: Mild Pain (1-3) Hydrocodone Bitart/Acetaminophen ([place] 5/325) 1 tab PO Q4H PRN PRN Reason: Moderate Pain (4-6) Al Hydroxide/Mg Hydroxide (Maalox) 30 ml PO Q6H PRN PRN Reason: Heartburn or Indigestion Apixaban (Eliquis) 5 mg PO BID [facility] Last Admin: 10/09/17 09:12 Dose: 5 mg Artificial Tears (Tears Naturale) 0 drop EA EYE PRN PRN PRN Reason: Dry Eyes Aspirin (Ecotrin) 81 mg PO DAILY [facility] Last Admin: 10/09/17 09:12 Dose: 81 mg Carvedilol (Coreg) 3.125 mg PO BID-[facility] Last Admin: 10/09/17 09:12 Dose: 3.125 mg Dextrose/Water (Dextrose 50%) 25 gm SLOW IVP PRN PRN PRN Reason: Hypoglycemia Folic Acid (Folvite) 1 mg PO HS [facility] Last Admin: 10/08/17 20:18 Dose: 1 mg Furosemide (Lasix) 40 mg SLOW IVP 0600,1400 [facility] Last Admin: 10/09/17 13:11 Dose: 40 mg Glucagon (Glucagon) 1 mg IM PRN PRN PRN Reason: Hypoglycemia Guaifenesin (Robitussin Sf) 200 mg PO Q4H PRN PRN Reason: Cough Dextrose/Water (D5w) 1,000 mls @ 0 mls/hr IV .Q0M PRN; As Directed PRN Reason: Hypoglycemia Amiodarone HCl 450 mg/ (Dextrose/Water) 259 mls @ 0 mls/hr IVPB INF [facility] Last Admin: 10/09/17 08:58 Dose: 259 mls Sodium Chloride (Normal Saline 0.9%) 250 mls @ 0 mls/hr IVPB NOW [facility] PRN Reason: As Directed Stop: 10/09/17 15:00 Last Admin: 10/09/17 13:58 Dose: 250 mls Insulin Human Lispro (Humalog) 0 units SC .MODERATE SLIDING SC PRN PRN Reason: Moderate Correctional Scale Insulin Human Lispro (Humalog) 0 units SC .BEDTIME SLIDING SC PRN PRN Reason: Bedtime Correctional Scale Labetalol HCl (Normodyne) 10 mg SLOW IVP Q4H PRN PRN Reason: Systolic BP > 180 Lisinopril (Zestril) 1.25 mg PO DAILY [facility] Last Admin: 10/09/17 09:12 Dose: 1.25 mg Loperamide HCl (Imodium) 2 mg PO PRN PRN PRN Reason: Diarrhea/Loose Stools Loratadine (Claritin) 10 mg PO DAILYPRN PRN PRN Reason: Sinus Symptoms Magnesium Hydroxide (Milk Of Magnesium) 30 ml PO DAILYPRN PRN PRN Reason: Constipation Mineral Oil/White Petrolatum (Eucerin Cream) 0 gm TOP BIDPRN PRN PRN Reason: Dry Skin Multivitamins (Theragran) 1 tab PO [facility] Last Admin: 10/08/17 20:18 Dose: 1 tab Ondansetron HCl (Zofran Odt) 4 mg PO Q6H PRN PRN Reason: Nausea/Vomiting Ondansetron HCl (Zofran) 4 mg IVP Q6H PRN PRN Reason: Nausea/Vomiting Phenol (Chloraseptic [place] 180 Ml Bot) 0 ml PO PRN PRN PRN Reason: Sore Throat Senna (Senokot) 2 tab PO HSPRN PRN PRN Reason: Constipation Sodium Chloride ([place] Nasal [place] 0.65%) 0 ml EA NARE QIDPRN PRN PRN Reason: Nasal Congestion Sodium Chloride (Flush - Normal Saline) 10 ml IVF Q12HR [facility] Last Admin: 10/09/17 09:18 Dose: 10 ml Sodium Chloride (Flush - Normal Saline) 10 ml IVF PRN PRN PRN Reason: Saline Flush Thiamine HCl (Thiamine) 100 mg PO HS [facility] Last Admin: 10/08/17 20:18 Dose: 100 mg Tramadol HCl (Ultram) 50 mg PO Q6H PRN PRN Reason: Moderate Pain (4-6) Zolpidem Tartrate (Ambien) 5 mg PO HSPRN PRN PRN Reason: Insomnia
[2017-10-09] MEDS: Folic Acid 1 MG TAB PO SCH (20:26)
[2017-10-09] MEDS: Multivit, Therapeutic 1 TAB PO SCH (20:26)
[2017-10-10 03:26] LABS: #Eosinphils 0.3 thou/uL (0.0-0.7); #Lymphocytes 2.2 thou/uL (1.20-3.40); #Monocytes 0.9 thou/uL (0.11-0.59); #Neutrophils 4.1 thou/uL (1.40-6.50); %Basophils 0.5 % (0.0-1.0); %Eosinophils 3.5 % (0.0-10.0); %Lymphocytes 29.5 % (21.0-51.0); %Monocytes 11.6 % (0.0-10.0); Hemoglobin 16.6 g/dL (14.0-18.0); Mean Corpuscular HGB CONC 33.5 g/dL (32.0-36.0); Mean Corpuscular Hemoglobin 29.7 pg (27.0-31.0); Mean Corpuscular Volume 88.4 fl (80.0-94.0); Mean Platelet Volume 7.2 fL (7.4-10.4); Platelet Count 219 thou/uL (130-400); RBC Distribution Width 13.2 % (11.5-14.5); Red Blood Cell (RBC) Count 5.59 mill/uL (4.70-6.10); White Blood Cell (WBC) Count 7.5 thou/uL (4.8-10.8)
[2017-10-10 03:48] LABS: Anion Gap 13 mmol/L (10-20); BUN (Urea Nitrogen) 22 mg/dL (8.4-25.7); Calc. Creatinine Clearance 114 mL/min (70-130); Calcium 9.6 mg/dL (7.8-10.44); Carbon Dioxide 27 mmol/L (22-29); Chloride 100 mmol/L (98-107); Estimated GFR-MDRD 72; Glucose 149 mg/dL (70-105); Sodium 136 mmol/L (136-145)
[2017-10-10] MEDS: Furosemide 40 MG/4 ML VIAL SLOW IVP SCH (05:57)
[2017-10-10] MEDS: Apixaban 5 MG TAB PO SCH ×2 (08:14→19:43)
[2017-10-10] MEDS: Lisinopril 2.5 MG TAB PO SCH (08:14)
[2017-10-10] MEDS: Carvedilol 3.125 MG TAB PO SCH ×2 (08:14→17:07)
[2017-10-10] MEDS: Aspirin 81 mg Enteric Coated Tablet PO SCH (08:15)
[2017-10-10] MEDS: HumaLOG 300 UNITS/3 ML VIAL SC PRN ×2 (11:32→17:07)
[2017-10-10] MEDS ORDERED: Digoxin 0.25 MG TAB PO SCH (12:30)
[2017-10-10] MEDS ORDERED: Amiodarone 200 MG TAB PO SCH (13:15)
[2017-10-10] MEDS: Furosemide 80 MG TAB PO SCH (13:51)
--- NOTE | 2017-10-10 16:33 | PDOC.CTH ---
Cardiology Progress Note - Subjective He is still in RVR. Feels SOB when exerting himself. No chest pain. - Objective Vital Signs Temp Pulse Resp BP BP BP Pulse Ox 10/10/17 15:28 98.5 F 100 18 104/62 98 10/10/17 12:41 108 H 10/10/17 10:59 97.7 F 106 H 16 96/60 98 10/10/17 08:14 110 H 110/70 10/10/17 08:05 98.1 F 110 H 18 110/70 95 Weight 238 lb 10/09/17 10/10/17 10/11/17 06:59 06:59 06:59 Intake Total 1560 2612.2 Output Total 2650 3775 Balance -1090 -1162.8 - Physical Examination General/Neuro: alert & oriented x3, NAD Neck: no JVD present Lungs: CTA, unlabored respirations Heart: other: (Irreg) Abdomen: NT/ND Extremities: other: (no edema) - Telemetry Telemetry Rhythm: Afib HR 90-120 - Labs Result Diagrams: 10/10/17 03:01 10/10/17 03:01 Troponin/CKMB CK-MB (CK-2) 1.5 ng/mL (0-6.6) 10/05/17 09:01 Troponin I 0.016 ng/mL (< 0.028) 10/05/17 15:16 - Assessment/Plan 1. New onset afib RVR 2. New onset dilated CM 3. LVEF at 20-25% 4. Alcohol use 5. Type 2 DM 6. KENAN thrombus PLAN: - Switch lasix to PO - He has been off amiodarone due to borderline low BP. Will restart PO amio at 200 mg BID for a slow load. - Continue Eliquis. - Will add digoxin. - Borderline BP can't up titrate CCB or BB.
[2017-10-10] MEDS: Folic Acid 1 MG TAB PO SCH (19:44)
[2017-10-10] MEDS: Multivit, Therapeutic 1 TAB PO SCH (19:44)
[2017-10-10] MEDS: Amiodarone 200 MG TAB PO SCH (19:44)
--- NOTE | 2017-10-10 22:17 | PDOC.PN ---
- Subjective Encounter Start Date: 10/10/17 Encounter Start Time: 09:00 Subjective: pt up in bed no complains - Objective Resuscitation Status: Resuscitation Status FULL:Full Resuscitation Vital Signs & Weight: Vital Signs (12 hours) Temp Pulse Resp BP BP Pulse Ox 10/10/17 20:00 98.3 F 69 16 10/10/17 19:40 98.3 F 69 16 115/60 94 L 10/10/17 15:28 98.5 F 100 18 104/62 98 10/10/17 12:41 108 H 10/10/17 10:59 97.7 F 106 H 16 96/60 98 Weight Weight 238 lb I&O: 10/09/17 10/10/17 10/11/17 06:59 06:59 06:59 Intake Total 1560 2612.2 1750 Output Total 2650 3775 1325 Balance -1090 -1162.8 425 Result Diagrams: 10/10/17 03:01 10/10/17 03:01 Additional Labs: Accuchecks 10/10/17 10/10/17 10/10/17 21:28 17:05 10:44 POC Glucose 111 H 175 H 178 H 10/10/17 06:41 POC Glucose 151 H Phys Exam - Physical Examination HEENT: PERRLA, moist MMs, sclera anicteric, TM's clear, oral pharynx no lesions , 2+ tonsils Neck: no nodes, no JVD, supple, full ROM Respiratory: no wheezing, no rales, no rhonchi, wheezing present, clear to auscultation bilateral Cardiovascular: RRR, no significant murmur, no rub, gallop, irregular Gastrointestinal: soft, non-tender, no distention, positive bowel sounds Musculoskeletal: no edema, pulses present, edema present Dx/Plan (1) Atrial fibrillation with RVR Code(s): I48.91 - UNSPECIFIED ATRIAL FIBRILLATION Status: Acute Comment: New onset, YUDY - KENAN thrombus (No CV done) (2) New onset of congestive heart failure Code(s): I50.9 - HEART FAILURE, UNSPECIFIED Status: Acute Comment: Systolic , on ACEI/BB (3) Chronic alcohol use Code(s): Z72.89 - OTHER PROBLEMS RELATED TO LIFESTYLE Status: Chronic Comment: Counselled. (4) DM2 (diabetes mellitus, type 2) Status: Chronic Qualifiers: Chronic kidney disease stage: stage 2 (mild) - Plan * pt still gets tachycardia when he ambulates. pt's amiodarone and digoxin has been made po. Unable to do YUDY due to [place] thrombus. Review of Systems - Review of Systems Eyes: negative: Pain, Vision Change, Conjunctivae Inflammation, Eyelid Inflammation, Redness, Other ENT: negative: Ear Pain, Ear Discharge, Nose Pain, Nose Discharge, Nose Congestion, Mouth Pain, Mouth Swelling, Throat Pain, Throat Swelling, Other Respiratory: negative: Cough, Dry, Shortness of Breath, Hemoptysis, SOB with Excertion, Pleuritic Pain, Sputum, Wheezing Cardiovascular: negative: chest pain, palpitations, orthopnea, paroxysmal nocturnal dyspnea, edema, light headedness, other Gastrointestinal: negative: Nausea, Vomiting, Abdominal Pain, Diarrhea, Constipation, Melena, Hematochezia, Other Genitourinary: negative: Dysuria, Frequency, Incontinence, Hematuria, Retention , Other - Medications/Allergies Allergies/Adverse Reactions: Allergies Allergy/AdvReac Type Severity Reaction Status Date / Time No Known Allergies Allergy Verified 10/05/17 12:48 Medications: Current Medications Acetaminophen (Tylenol) 650 mg PO Q4H PRN PRN Reason: Headache/Fever or Pain Acetaminophen/Codeine Phosphate (Tylenol #3) 1 tab PO Q4H PRN PRN Reason: Mild Pain (1-3) Hydrocodone Bitart/Acetaminophen ([place] 5/325) 1 tab PO Q4H PRN PRN Reason: Moderate Pain (4-6) Al Hydroxide/Mg Hydroxide (Maalox) 30 ml PO Q6H PRN PRN Reason: Heartburn or Indigestion Amiodarone HCl (Cordarone) 200 mg PO BID [facility] Last Admin: 10/10/17 19:44 Dose: 200 mg Apixaban (Eliquis) 5 mg PO BID [facility] Last Admin: 10/10/17 19:43 Dose: 5 mg Artificial Tears (Tears Naturale) 0 drop EA EYE PRN PRN PRN Reason: Dry Eyes Aspirin (Ecotrin) 81 mg PO DAILY [facility] Last Admin: 10/10/17 08:15 Dose: 81 mg Carvedilol (Coreg) 3.125 mg PO BID[facility] Last Admin: 10/10/17 17:07 Dose: 3.125 mg Dextrose/Water (Dextrose 50%) 25 gm SLOW IVP PRN PRN PRN Reason: Hypoglycemia Digoxin (Lanoxin) 0.25 mg PO DAILY [facility] Folic Acid (Folvite) 1 mg PO HS [facility] Last Admin: 10/10/17 19:44 Dose: 1 mg Furosemide (Lasix) 80 mg PO 0900,1400 [facility] Last Admin: 10/10/17 13:51 Dose: 80 mg Glucagon (Glucagon) 1 mg IM PRN PRN PRN Reason: Hypoglycemia Guaifenesin (Robitussin Sf) 200 mg PO Q4H PRN PRN Reason: Cough Dextrose/Water (D5w) 1,000 mls @ 0 mls/hr IV .Q0M PRN; As Directed PRN Reason: Hypoglycemia Amiodarone HCl 450 mg/ (Dextrose/Water) 259 mls @ 0 mls/hr IVPB INF [facility] Last Admin: 10/09/17 20:26 Dose: 259 mls Insulin Human Lispro (Humalog) 0 units SC .MODERATE SLIDING SC PRN PRN Reason: Moderate Correctional Scale Last Admin: 10/10/17 17:07 Dose: 2 units Insulin Human Lispro (Humalog) 0 units SC .BEDTIME SLIDING SC PRN PRN Reason: Bedtime Correctional Scale Labetalol HCl (Normodyne) 10 mg SLOW IVP Q4H PRN PRN Reason: Systolic BP > 180 Lisinopril (Zestril) 1.25 mg PO DAILY [facility] Last Admin: 10/10/17 08:14 Dose: 1.25 mg Loperamide HCl (Imodium) 2 mg PO PRN PRN PRN Reason: Diarrhea/Loose Stools Loratadine (Claritin) 10 mg PO DAILYPRN PRN PRN Reason: Sinus Symptoms Magnesium Hydroxide (Milk Of Magnesium) 30 ml PO DAILYPRN PRN PRN Reason: Constipation Mineral Oil/White Petrolatum (Eucerin Cream) 0 gm TOP BIDPRN PRN PRN Reason: Dry Skin Multivitamins (Theragran) 1 tab PO [facility] Last Admin: 10/10/17 19:44 Dose: 1 tab Ondansetron HCl (Zofran Odt) 4 mg PO Q6H PRN PRN Reason: Nausea/Vomiting Ondansetron HCl (Zofran) 4 mg IVP Q6H PRN PRN Reason: Nausea/Vomiting Phenol (Chloraseptic [place] 180 Ml Bot) 0 ml PO PRN PRN PRN Reason: Sore Throat Senna (Senokot) 2 tab PO HSPRN PRN PRN Reason: Constipation Sodium Chloride ([place] Nasal [place] 0.65%) 0 ml EA NARE QIDPRN PRN PRN Reason: Nasal Congestion Sodium Chloride (Flush - Normal Saline) 10 ml IVF Q12HR [facility] Last Admin: 10/10/17 19:45 Dose: 10 ml Sodium Chloride (Flush - Normal Saline) 10 ml IVF PRN PRN PRN Reason: Saline Flush Thiamine HCl (Thiamine) 100 mg PO HS [facility] Last Admin: 10/10/17 19:43 Dose: 100 mg Tramadol HCl (Ultram) 50 mg PO Q6H PRN PRN Reason: Moderate Pain (4-6) Zolpidem Tartrate (Ambien) 5 mg PO HSPRN PRN PRN Reason: Insomnia
--- NOTE | 2017-10-11 08:45 | PDOC.CTH ---
Cardiology Progress Note - Subjective He is doing better. Rate better controlled. - Objective Vital Signs Temp Pulse Resp BP BP Pulse Ox 10/11/17 07:10 98.0 F 54 L 16 153/77 H 95 10/11/17 04:00 98 F 84 18 112/65 93 L Weight 237 lb 11.2 oz 10/10/17 10/11/17 10/12/17 06:59 06:59 06:59 Intake Total 2612.2 1750 Output Total 3775 2225 Balance -1162.8 -475 - Physical Examination General/Neuro: alert & oriented x3, NAD Neck: no JVD present Lungs: CTA, unlabored respirations Heart: other: (irreg) Abdomen: NT/ND, soft Extremities: + edema B (1+) - Telemetry Telemetry Rhythm: Afib HR 80-110 - Labs Result Diagrams: 10/10/17 03:01 10/10/17 03:01 Troponin/CKMB CK-MB (CK-2) 1.5 ng/mL (0-6.6) 10/05/17 09:01 Troponin I 0.016 ng/mL (< 0.028) 10/05/17 15:16 - Assessment/Plan 1. New onset afib. Lenient rate control 2. New onset dilated CM. 3. LVEF at 20-25% 4. Alcohol use 5. Type 2 DM 6. KENAN thrombus PLAN: - Continue current lasix PO dose. - Continue Eliquis. - Continue amiodarone and digoxin for rate control. - Borderline BP can't up titrate CCB or BB. - He is stable for discharge from cardiac perspective on current medications. - Plan on seeing him back in 1 month with plan for repeat YUDY Cardioversion.
[2017-10-11] MEDS ORDERED: Digoxin 0.25 MG TAB PO SCH (09:00)
--- NOTE | 2017-10-11 09:32 | PDOC.PN ---
- Subjective Encounter Start Date: 10/11/17 Encounter Start Time: 07:10 -: old records requested/rev Patient seen and examined for CHF, afib. No new complaints. No overnight events - Objective Resuscitation Status: Resuscitation Status FULL:Full Resuscitation MAR Reviewed: Yes Vital Signs & Weight: Vital Signs (12 hours) Temp Pulse Resp BP BP Pulse Ox 10/11/17 07:10 98.0 F 54 L 16 153/77 H 95 10/11/17 04:00 98 F 84 18 112/65 93 L Weight Weight 237 lb 11.2 oz I&O: 10/10/17 10/11/17 10/12/17 06:59 06:59 06:59 Intake Total 2612.2 1750 Output Total 3775 2225 Balance -1162.8 -475 Result Diagrams: 10/10/17 03:01 10/10/17 03:01 Additional Labs: Accuchecks 10/11/17 10/10/17 10/10/17 06:13 21:28 17:05 POC Glucose 146 H 111 H 175 H 10/10/17 10:44 POC Glucose 178 H EKG Reviewed by me: Yes (afib rate controlled) Phys Exam - Physical Examination Constitutional: NAD HEENT: PERRLA, moist MMs, sclera anicteric Neck: no JVD, supple Respiratory: no wheezing, no rales, no rhonchi Cardiovascular: no significant murmur, irregular Gastrointestinal: soft, non-tender, no distention, positive bowel sounds Musculoskeletal: no edema, pulses present Neurological: non-focal, normal sensation, moves all 4 limbs Lymphatic: no nodes Psychiatric: normal affect, A&O x 3 Skin: no rash, normal turgor Dx/Plan (1) Atrial fibrillation with RVR Code(s): I48.91 - UNSPECIFIED ATRIAL FIBRILLATION Status: Acute Comment: New onset, YUDY - KENAN thrombus (No CV done) (2) New onset of congestive heart failure Code(s): I50.9 - HEART FAILURE, UNSPECIFIED Status: Acute Comment: Systolic , on ACEI/BB (3) Chronic alcohol use Code(s): Z72.89 - OTHER PROBLEMS RELATED TO LIFESTYLE Status: Chronic Comment: Counselled. (4) DM2 (diabetes mellitus, type 2) Status: Chronic Qualifiers: Chronic kidney disease stage: stage 2 (mild) (5) Obesity (BMI 30-39.9) Code(s): E66.9 - OBESITY, UNSPECIFIED Status: Chronic Comment: Counselled - Plan cont current plan of care * medication reviewed as below * symptomatic treatment * as per cardiology ok to discharge today * stable, rate controlled, on room air. Review of Systems - Review of Systems Eyes: negative: Pain, Vision Change, Conjunctivae Inflammation, Eyelid Inflammation, Redness, Other ENT: negative: Ear Pain, Ear Discharge, Nose Pain, Nose Discharge, Nose Congestion, Mouth Pain, Mouth Swelling, Throat Pain, Throat Swelling, Other Respiratory: negative: Cough, Dry, Shortness of Breath, Hemoptysis, SOB with Excertion, Pleuritic Pain, Sputum, Wheezing Cardiovascular: negative: chest pain, palpitations, orthopnea, paroxysmal nocturnal dyspnea, edema, light headedness, other Gastrointestinal: negative: Nausea, Vomiting, Abdominal Pain, Diarrhea, Constipation, Melena, Hematochezia, Other Genitourinary: negative: Dysuria, Frequency, Incontinence, Hematuria, Retention , Other Musculoskeletal: negative: Neck Pain, Shoulder Pain, Arm Pain, Back Pain, Hand Pain, Leg Pain, Foot Pain, Other Skin: negative: Rash, Lesions, Gordy, Bruising, Other - Medications/Allergies Allergies/Adverse Reactions: Allergies Allergy/AdvReac Type Severity Reaction Status Date / Time No Known Allergies Allergy Verified 10/05/17 12:48 Medications: Current Medications Acetaminophen (Tylenol) 650 mg PO Q4H PRN PRN Reason: Headache/Fever or Pain Acetaminophen/Codeine Phosphate (Tylenol #3) 1 tab PO Q4H PRN PRN Reason: Mild Pain (1-3) Hydrocodone Bitart/Acetaminophen ([place] 5/325) 1 tab PO Q4H PRN PRN Reason: Moderate Pain (4-6) Al Hydroxide/Mg Hydroxide (Maalox) 30 ml PO Q6H PRN PRN Reason: Heartburn or Indigestion Amiodarone HCl (Cordarone) 200 mg PO BID [facility] Last Admin: 10/10/17 19:44 Dose: 200 mg Apixaban (Eliquis) 5 mg PO BID [facility] Last Admin: 10/10/17 19:43 Dose: 5 mg Artificial Tears (Tears Naturale) 0 drop EA EYE PRN PRN PRN Reason: Dry Eyes Aspirin (Ecotrin) 81 mg PO DAILY [facility] Last Admin: 10/10/17 08:15 Dose: 81 mg Carvedilol (Coreg) 3.125 mg PO BID-WM [facility] Last Admin: 10/10/17 17:07 Dose: 3.125 mg Dextrose/Water (Dextrose 50%) 25 gm SLOW IVP PRN PRN PRN Reason: Hypoglycemia Digoxin (Lanoxin) 0.25 mg PO DAILY [facility] Folic Acid (Folvite) 1 mg PO HS [facility] Last Admin: 10/10/17 19:44 Dose: 1 mg Furosemide (Lasix) 80 mg PO 0900,1400 [facility] Last Admin: 10/10/17 13:51 Dose: 80 mg Glucagon (Glucagon) 1 mg IM PRN PRN PRN Reason: Hypoglycemia Guaifenesin (Robitussin Sf) 200 mg PO Q4H PRN PRN Reason: Cough Dextrose/Water (D5w) 1,000 mls @ 0 mls/hr IV .Q0M PRN; As Directed PRN Reason: Hypoglycemia Amiodarone HCl 450 mg/ (Dextrose/Water) 259 mls @ 0 mls/hr IVPB INF [facility] Last Admin: 10/09/17 20:26 Dose: 259 mls Insulin Human Lispro (Humalog) 0 units SC .MODERATE SLIDING SC PRN PRN Reason: Moderate Correctional Scale Last Admin: 10/10/17 17:07 Dose: 2 units Insulin Human Lispro (Humalog) 0 units SC .BEDTIME SLIDING SC PRN PRN Reason: Bedtime Correctional Scale Labetalol HCl (Normodyne) 10 mg SLOW IVP Q4H PRN PRN Reason: Systolic BP > 180 Lisinopril (Zestril) 1.25 mg PO DAILY [facility] Last Admin: 10/10/17 08:14 Dose: 1.25 mg Loperamide HCl (Imodium) 2 mg PO PRN PRN PRN Reason: Diarrhea/Loose Stools Loratadine (Claritin) 10 mg PO DAILYPRN PRN PRN Reason: Sinus Symptoms Magnesium Hydroxide (Milk Of Magnesium) 30 ml PO DAILYPRN PRN PRN Reason: Constipation Mineral Oil/White Petrolatum (Eucerin Cream) 0 gm TOP BIDPRN PRN PRN Reason: Dry Skin Multivitamins (Theragran) 1 tab PO [facility] Last Admin: 10/10/17 19:44 Dose: 1 tab Ondansetron HCl (Zofran Odt) 4 mg PO Q6H PRN PRN Reason: Nausea/Vomiting Ondansetron HCl (Zofran) 4 mg IVP Q6H PRN PRN Reason: Nausea/Vomiting Phenol (Chloraseptic [place] 180 Ml Bot) 0 ml PO PRN PRN PRN Reason: Sore Throat Senna (Senokot) 2 tab PO HSPRN PRN PRN Reason: Constipation Sodium Chloride ([place] Nasal [place] 0.65%) 0 ml EA NARE QIDPRN PRN PRN Reason: Nasal Congestion Sodium Chloride (Flush - Normal Saline) 10 ml IVF Q12HR [facility] Last Admin: 10/10/17 19:45 Dose: 10 ml Sodium Chloride (Flush - Normal Saline) 10 ml IVF PRN PRN PRN Reason: Saline Flush Thiamine HCl (Thiamine) 100 mg PO HS [facility] Last Admin: 10/10/17 19:43 Dose: 100 mg Tramadol HCl (Ultram) 50 mg PO Q6H PRN PRN Reason: Moderate Pain (4-6) Zolpidem Tartrate (Ambien) 5 mg PO HSPRN PRN PRN Reason: Insomnia
[2017-10-11] MEDS: Furosemide 80 MG TAB PO SCH (09:40)
[2017-10-11] MEDS: Lisinopril 2.5 MG TAB PO SCH (09:40)
[2017-10-11] MEDS: Aspirin 81 mg Enteric Coated Tablet PO SCH (09:40)
[2017-10-11] MEDS: Apixaban 5 MG TAB PO SCH (09:43)
[2017-10-11] MEDS: Carvedilol 3.125 MG TAB PO SCH (09:43)
[2017-10-11] MEDS: Amiodarone 200 MG TAB PO SCH (09:43)
--- NOTE | 2017-10-11 10:38 | DIS ---
PRIMARY CARE PHYSICIAN: Dr. Danilo Velazquez DATE OF ADMISSION: 10/05/2017 DATE OF DISCHARGE: 10/11/2017 DISCHARGE DISPOSITION: Home. PRIMARY DISCHARGE DIAGNOSES: 1. Atrial fibrillation with rapid ventricular response. 2. New onset systolic congestive heart failure. 3. Left atrial appendage thrombus. SECONDARY DISCHARGE DIAGNOSES: Obesity with BMI 32, diabetes type 2, chronic alcohol use. PRIMARY PROCEDURE/OPERATION: Transesophageal echocardiography showed left atrial appendage thrombus. Cardiac catheterization was negative. RADIOLOGICAL INVESTIGATION: Chest x-ray showed pulmonary vascular congestion. Echocardiography show ed EF 20-25%, global hypokinesis. SIGNIFICANT LABORATORY DATA: WBC 7.5, hemoglobin 16.6, platelet 219. INR 1.0. Sodium 136, potassiu m 4.0, BUN 22, creatinine 1.05, calcium 9.6, LDL 87. Hepatitis profile negative. DISCHARGE MEDICATIONS: Amiodarone 200 mg p.o. b.i.d., Eliquis 5 mg p.o. b.i.d., aspirin 81 mg p.o. d aily, Coreg 3.125 mg p.o. b.i.d., digoxin 0.25 mg p.o. daily, folic acid 1 mg p.o. at bedtime, Lasix 80 mg p.o. b.i.d., lisinopril 1.25 mg p.o. daily, metformin 1000 mg p.o. b.i.d., multivitamin 1 table t p.o. at bedtime, thiamine 100 mg p.o. at bedtime. CONTRAINDICATIONS: None. CODE STATUS: FULL CODE. INPATIENT CONSULTANTS: Dr. Bonilla was following while in hospital. TEST RESULTS PENDING ON DISCHARGE: None. ALLERGIES: No known drug allergy. DISCHARGE PLAN: Post hospital, the patient will follow up with primary care physician, Dr. Anderson on 10/17/2017 at 11:45 a.m. The patient will follow up with outpatient cardiac rehab program as well as Dr. Bonilla as instructed. HOSPITAL COURSE: A 61-year-old male with the above-mentioned medical problem who was admitted by me on 10/05/2017. Please see my HPI for further details. This patient was mainly having dyspnea on exe rtion. He was feeling weakness and dizziness. The patient was found with atrial fibrillation with r apid ventricular response. He had elevated BNP. We suspected angina equivalent and that is why we d id serial cardiac enzyme and ruled out acute coronary syndrome. The patient was admitted to telemetr y floor. We did echocardiography which showed systolic dysfunction. The patient was treated with am iodarone drip for atrial fibrillation. Cardiology did cardiac catheterization and negative for any b lockage. 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 We did do transesophageal echocardiography and found with a left atrial appendage thrombus and that i s why cardioversion was not performed, but his rate was controlled with amiodarone and digoxin. Abov e-mentioned medication was adjusted while in hospital. At this point, the patient is on room air, to lerating p.o. well, ambulatory. Cardiology cleared him for discharge. The patient is kept on Eliqui s therapy for anticoagulation and subsequently the patient will follow up with Dr. Bonilla with repeat echocardiography and decide for cardioversion if needed. Today, the patient is seen and examined at bedside today. Please see my progress note from today for further detail. Overall the patient is medically stable for discharge today.
[2017-10-11 12:07] VITALS: BP 138/78; TEMP 98.2
--- NOTE | 2017-10-15 12:23 | PQF ---
[employer] Pradip Hernandez MALIK MD [id number] CLINICAL DOCUMENTATION CLARIFICATION FORM: POST DISCHARGE Addendum to original discharge summary date: ____ Late entry note date: __ Please exercise your independent, professional judgment in responding to the clarification form. Clinical indicators are provided on the bottom of this form for your review. Please clarify the acuity of the new onset systolic heart failure listed in the Discharge summary. Thank you Please check appropriate box(s): HEART FAILURE: A. TYPE: [ ] Systolic / HFrEF [ ] Diastolic / HFpEF [ ] Combined Systolic / Diastolic B. ACUITY [ ] Acute [ ] Acute on Chronic [ ] Chronic [ ] Other diagnosis [ ] Unable to determine In addition, please specify: Present on Admission (POA): [ ] Yes [ ] No [ ] Unable to determine For continuity of documentation, please document condition throughout progress notes and discharge summary. Thank You. CLINICAL INDICATORS - SIGNS / SYMPTOMS / LABS Ejection Fraction = % Dyspnea, Hypoxia Peripheral edema Elevated BNP JVD Orthopnea / SOB / dyspnea Pleural effusion / pulmonary edema CXR results Arrhythmia--tachycardia RISKS: CKD [employer] Pradip Hernandez MALIK MD [id number] CLINICAL DOCUMENTATION CLARIFICATION FORM: POST DISCHARGE Addendum to original discharge summary date: ____ Late entry note date: __ Please exercise your independent, professional judgment in responding to the clarification form. Clinical indicators are provided on the bottom of this form for your review. Please clarify the acuity of the new onset systolic heart failure listed in the Discharge summary. Thank you Please check appropriate box(s): HEART FAILURE: A. TYPE: [ ] Systolic / HFrEF [ ] Diastolic / HFpEF [ ] Combined Systolic / Diastolic B. ACUITY [ ] Acute [ ] Acute on Chronic [ ] Chronic [ ] Other diagnosis [ ] Unable to determine In addition, please specify: Present on Admission (POA): [ ] Yes [ ] No [ ] Unable to determine For continuity of documentation, please document condition throughout progress notes and discharge summary. Thank You. CLINICAL INDICATORS - SIGNS / SYMPTOMS / LABS Ejection Fraction = % Dyspnea, Hypoxia Peripheral edema Elevated BNP JVD Orthopnea / SOB / dyspnea Pleural effusion / pulmonary edema CXR results Arrhythmia--tachycardia RISKS: CKD TREATMENTS: Administration of ANNIE / ARB / BB Cardiac monitoring / telemetry IV diuretics (This form is maintained as a part of the permanent medical record) 2014 [employer]. All Rights Reserved Daniela [email or web address] [phone] I did not dictate discharge summary on this patient. SAMANTHA
== END 2017-10-11 14:34 | disposition home or self-care (01) | DRG 286 ==
LOC: ERS 08:50 → 2NO 11:15
PROVIDERS: ADMIT Internal Medicine; ATTEND Internal Medicine
PROC: 4A023N7 Measurement of Cardiac Sampling and Pressure, Left Heart, Percutaneous Approach (ICD-10-PCS; principal; 2017-10-07)
PROC: B2111ZZ Fluoroscopy of Multiple Coronary Arteries using Low Osmolar Contrast (ICD-10-PCS; 2017-10-07)
DX: I48.91 Unspecified atrial fibrillation (principal); I50.21 Acute systolic (congestive) heart failure; E11.9 Type 2 diabetes mellitus without complications; I51.3 Intracardiac thrombosis, not elsewhere classified; I42.0 Dilated cardiomyopathy; F10.10 Alcohol abuse, uncomplicated; N18.2 Chronic kidney disease, stage 2 (mild); E66.01 Morbid (severe) obesity due to excess calories; R74.0 Nonspecific elevation of levels of transaminase and lactic acid dehydrogenase [LDH]; R06.00 Dyspnea, unspecified; Z53.09 Procedure and treatment not carried out because of other contraindication; Z68.32 Body mass index [BMI] 32.0-32.9, adult; Z79.84 Long term (current) use of oral hypoglycemic drugs
CPT/HCPCS: 36415; 36416; 71046; 80048; 80053; 80061; 80069; 80074; 80076; 82553; 83690; 83735; 83880; 84100; 84132; 84443; 84484; 85014; 85018; 85025; 85049; 85610; 85730; 92960; 93005; 93306; 93312; 93458; 93798; 96361; 96365; 96372; 96376; 99152; A4216; C1769; J0282; J1644; J1650; J1940; J2001; J2250; J2704; J3010; J7050; J7070

== ENCOUNTER 2018-05-17 14:53 | Inpatient (IN) | payer BC, SELFPAY ==
[2018-05-17] MEDS ORDERED: Metoprolol Tartrate 5 MG/5 ML VIAL ONE (15:07)
[2018-05-17 15:15] LABS: #Basophils 0.1 thou/uL (0.0-0.2); #Eosinphils 0.1 thou/uL (0.0-0.7); #Lymphocytes 1.8 thou/uL (1.20-3.40); #Monocytes 0.6 thou/uL (0.11-0.59); #Neutrophils 4.7 thou/uL (1.40-6.50); %Eosinophils 1.9 % (0.0-10.0); %Lymphocytes 25.3 % (21.0-51.0); %Monocytes 7.7 % (0.0-10.0); %Neutrophils 64.1 % (42.0-75.0); Hemoglobin 17.5 g/dL (14.0-18.0); Mean Corpuscular HGB CONC 34.6 g/dL (32.0-36.0); Mean Corpuscular Volume 86.8 fL (78.0-98.0); Mean Platelet Volume 8.5 fL (7.4-10.4); Platelet Count 260 thou/uL (130-400); RBC Distribution Width 12.3 % (11.5-14.5); Red Blood Cell (RBC) Count 5.83 mill/uL (4.70-6.10); White Blood Cell (WBC) Count 7.3 thou/uL (4.8-10.8)
[2018-05-17] MEDS ORDERED: Diltiazem 125 MG/25 ML ONE (15:37)
[2018-05-17] MEDS ORDERED: Diltiazem HCl 125 MG, Admixture Fee 1 EACH in Sodium Chloride 0.9% 100 ML IVPB SCH (15:45)
[2018-05-17 15:56] LABS: ALT (SGPT) 24 U/L (8-55); AST (SGOT) 17 U/L (5-34); Albumin 4.2 g/dL (3.5-5.0); Alkaline Phosphatase 96 U/L (40-150); Anion Gap 23 mmol/L (10-20); BUN (Urea Nitrogen) 25 mg/dL (8.4-25.7); Bilirubin, Total 0.5 mg/dL (0.2-1.2); CK (CPK) 19 U/L (30-200); Calc. Creatinine Clearance 0 mL/min (70-130); Calcium 10.1 mg/dL (7.8-10.44); Carbon Dioxide 23 mmol/L (22-29); Chloride 87 mmol/L (98-107); Estimated GFR-MDRD 46; Globulin 3.4 g/dL (2.4-3.5); Lipase 45 U/L (8-78); Potassium 4.1 mmol/L (3.5-5.1); Protein, Total 7.6 g/dL (6.0-8.3); Sodium 129 mmol/L (136-145)
--- NOTE | 2018-05-17 15:59 | RAD ---
PORTABLE UPRIGHT FRONTAL CHEST RADIOGRAPH 05/17/18 COMPARISON: None. HISTORY: Chest pain and shortness of breath. FINDINGS: No pneumothorax, pleural fluid, focal consolidation, or alveolar edema. IMPRESSION: No acute findings. POS: [facility]
[2018-05-17 16:02] LABS: Glucose 585 mg/dL (70-105)
[2018-05-17 16:22] LABS: Digoxin Less than 0.15 ng/mL (0.8-2.0)
[2018-05-17] MEDS ORDERED: Digoxin 0.25 MG TAB ONE (17:36)
[2018-05-17] MEDS ORDERED: HumaLOG 300 UNITS/3 ML VIAL ONE (17:37)
[2018-05-17 22:52] VITALS: BMI 35.7
[2018-05-17] MEDS ORDERED: Dextrose 5% in Water 1,000 ML IV PRN (22:53)
[2018-05-17] MEDS ORDERED: Calcium Carbonate 500 MG ChewTAB PO PRN (22:53)
[2018-05-17] MEDS ORDERED: Senokot S 8.6-50 MG TAB PO PRN (22:53)
[2018-05-17] MEDS ORDERED: Bisacodyl 5 MG TAB PO PRN (22:53)
[2018-05-17] MEDS ORDERED: Zolpidem Tartrate 5 MG TAB PO PRN (22:53)
[2018-05-17] MEDS ORDERED: Nitroglycerin 0.4 MG TAB (25 Tab Bottle) PO PRN (22:53)
[2018-05-17] MEDS ORDERED: Acetaminophen 325 MG TAB PO PRN (22:53)
[2018-05-17] MEDS ORDERED: Dextrose 50% Abboject 50 ML SYRINGE SLOW IVP PRN (22:53)
[2018-05-17] MEDS ORDERED: Digoxin 0.5 MG/2 ML AMP SLOW IVP SCH (23:45)
[2018-05-18] MEDS ORDERED: Sodium Chloride 0.9% 1,000 ML IV SCH (00:15)
[2018-05-18] MEDS ORDERED: HumaLOG 300 UNITS/3 ML VIAL SC SCH (00:30)
[2018-05-18] MEDS ORDERED: Apixaban 5 MG TAB PO SCH (00:45)
[2018-05-18] MEDS ORDERED: HUMULIN R 100 UNITS in Sodium Chloride 0.9% 100 ML IVPB SCH (02:00)
[2018-05-18 03:24] LABS: #Eosinphils 0.2 thou/uL (0.0-0.7); #Lymphocytes 2.3 thou/uL (1.20-3.40); #Monocytes 0.4 thou/uL (0.11-0.59); #Neutrophils 2.7 thou/uL (1.40-6.50); %Basophils 0.5 % (0.0-1.0); %Eosinophils 2.9 % (0.0-10.0); %Lymphocytes 40.2 % (21.0-51.0); %Monocytes 7.5 % (0.0-10.0); %Neutrophils 48.8 % (42.0-75.0); Hemoglobin 15.9 g/dL (14.0-18.0); Mean Corpuscular HGB CONC 35.2 g/dL (32.0-36.0); Mean Corpuscular Hemoglobin 30.3 pg (27.0-31.0); Mean Platelet Volume 7.8 fL (7.4-10.4); Platelet Count 236 thou/uL (130-400); RBC Distribution Width 12.3 % (11.5-14.5); Red Blood Cell (RBC) Count 5.25 mill/uL (4.70-6.10); White Blood Cell (WBC) Count 5.6 thou/uL (4.8-10.8)
[2018-05-18 03:39] LABS: Anion Gap 11 mmol/L (10-20); BUN (Urea Nitrogen) 19 mg/dL (8.4-25.7); Calc. Creatinine Clearance 111 mL/min (70-130); Carbon Dioxide 28 mmol/L (22-29); Chloride 99 mmol/L (98-107); Estimated GFR-MDRD 68; Glucose 402 mg/dL (70-105); Potassium 3.7 mmol/L (3.5-5.1); Sodium 134 mmol/L (136-145)
[2018-05-18 03:40] LABS: Albumin 3.6 g/dL (3.5-5.0); Anion Gap 11 mmol/L (10-20); BUN (Urea Nitrogen) 19 mg/dL (8.4-25.7); BUN/Creatinine Ratio 16.96; Calc. Creatinine Clearance 109 mL/min (70-130); Carbon Dioxide 27 mmol/L (22-29); Cardiac Risk 7.1 (Less than 4.5); Chloride 99 mmol/L (98-107); Cholesterol 213 mg/dl (< 200 Desired); Estimated GFR-MDRD 67; Glucose 403 mg/dL (70-105); HDL Cholesterol 30 mg/dL (>60 Neg Risk); Potassium 3.7 mmol/L (3.5-5.1); Sodium 133 mmol/L (136-145); Triglycerides 428 mg/dL (Less than 150)
[2018-05-18 03:48] LABS: Phosphorus 1.6 mg/dL (2.3-4.7)
[2018-05-18] MEDS ORDERED: Potassium Chloride 20 MEQ in Premix Bag 1 BAG IVPB SCH (04:15)
[2018-05-18] MEDS ORDERED: Potassium Phosphate 30 MMOL in Sodium Chloride 0.9% 500 ML IVPB SCH (04:30)
[2018-05-18] MEDS: Nitroglycerin 2% Ointment 1 INCH/1 GM Packet TOP SCH ×3 (07:46→22:13)
[2018-05-18] MEDS: Digoxin 0.25 MG TAB PO SCH (07:55)
[2018-05-18] MEDS: Famotidine 20 MG TAB PO SCH ×2 (07:56→20:09)
[2018-05-18] MEDS: Apixaban 5 MG TAB PO SCH ×2 (07:56→20:09)
[2018-05-18] MEDS: Amiodarone 200 MG TAB PO SCH ×2 (07:56→20:09)
[2018-05-18] MEDS: Famotidine/PF 20 mg/2ml Vial SLOW IVP SCH ×2 (07:56→20:12)
[2018-05-18] MEDS: Carvedilol 3.125 MG TAB PO SCH ×2 (07:56→17:02)
[2018-05-18] MEDS: Aspirin 81 mg Enteric Coated Tablet PO SCH (08:16)
--- NOTE | 2018-05-18 08:24 | ULT ---
RIGHT LOWER EXTREMITY VENOUS DOPPLER ULTRASOUND: DATE: 05/18/2018. HISTORY: Pain, evaluate for DVT. TECHNIQUE: Multiplanar, barber scale sonographic imaging venous structures right lower extremity obtained with col or flow and spectral analysis. FINDINGS: Right common femoral vein, greater saphenous vein, profunda femoral vein, femoral vein, popliteal vei n, and posterior tibial vein appear patent. Normal blood flow, augmentation, and compression within the deep venous system. No evidence for DVT on the right. IMPRESSION: No evidence for deep venous thrombosis of the right lower extremity. POS: [facility]
[2018-05-18 09:56] LABS: Amphetamine Not Detected (NotDetected); Barbiturates Screen Not Detected (NotDetected); Benzodiazepine Screen Not Detected (NotDetected); Cocaine Metabolite Screen Not Detected (NotDetected); Medtox Control Line Valid? VALID (VALID); Medtox Reader # READER 4; Methadone Not Detected (NotDetected); Methamphetamine Not Detected (NotDetected); Opiate Screen Not Detected (NotDetected); Oxycodone Screen Not Detected (NotDetected); Phencyclidine (PCP) Not Detected (NotDetected); THC/Cannabinoid Screen Not Detected (NotDetected); Tricyclic Screen Not Detected (NotDetected)
[2018-05-18] MEDS ORDERED: Dextrose 5% in Water 1,000 ML IV PRN (10:30)
[2018-05-18] MEDS ORDERED: Dextrose 50% Abboject 50 ML SYRINGE SLOW IVP PRN (10:30)
--- NOTE | 2018-05-18 10:39 | PDOC.PN ---
- Subjective Encounter Start Date: 05/18/18 Encounter Start Time: 10:33 Patient seen and examined, no new issues or complaints. - Objective Resuscitation Status - Order Detail: 05/17/18 22:53 Resuscitation Status Routine Resuscitation Status: FULL: Full Resuscitation Vital Signs & Weight: Vital Signs (12 hours) Temp Pulse Resp BP Pulse Ox 05/18/18 07:55 94 05/18/18 07:35 97.7 F 94 19 101/65 92 L 05/18/18 04:00 97.3 F L 84 19 117/84 94 L 05/18/18 00:30 98.0 F 132 H 18 114/75 94 L 05/18/18 00:08 131 H Weight Weight 242 lb 1.081 oz I&O: 05/17/18 05/18/18 05/19/18 06:59 06:59 06:59 Intake Total 520 Output Total 600 Balance -80 Result Diagrams: 05/18/18 03:17 05/18/18 03:17 Additional Labs: Accuchecks 05/18/18 05/18/18 05/18/18 09:02 08:29 07:03 POC Glucose 354 H 308 H 177 H 05/18/18 05/18/18 05/18/18 05:56 05:03 03:59 POC Glucose 137 H 156 H 241 H 05/18/18 05/18/18 05/17/18 03:04 01:39 23:52 POC Glucose 382 H 526 H 498 H 05/17/18 05/17/18 21:27 18:48 POC Glucose 364 H 480 H Phys Exam - Physical Examination Constitutional: NAD HEENT: PERRLA, moist MMs, sclera anicteric, TM's clear Neck: no nodes, no JVD, supple, full ROM Respiratory: clear to auscultation bilateral no respiratory distress Cardiovascular: no significant murmur, no rub, irregular Gastrointestinal: soft, non-tender, no distention, positive bowel sounds rotund Musculoskeletal: pulses present, edema present (trace) Dx/Plan (1) Atrial fibrillation with RVR Code(s): I48.91 - UNSPECIFIED ATRIAL FIBRILLATION Status: Acute Comment: New onset, YUDY - KENAN thrombus (No CV done) (2) New onset of congestive heart failure Code(s): I50.9 - HEART FAILURE, UNSPECIFIED Status: Acute Comment: Systolic , on ACEI/BB (3) DM2 (diabetes mellitus, type 2) Status: Chronic (4) Obesity (BMI 30-39.9) Code(s): E66.9 - OBESITY, UNSPECIFIED Status: Chronic Comment: Counselled - Plan * DC insulin drip for now * will check echo, last echo done 10/2017 showed A Fib and EF 20-25%, had a atrial thrombosis on anticoagulation, may need AICD/pacer? * will check A1C * start statin + fenofibrates for high lipids and high triglycerides * overall prognosis appears poor as patient is not very compliant with medications or diet, advised to pursue a strict vegan diet as his best course forward to lose weight and reduce salt intake as well, states he's been eating pork a lot and eats meat with every meal. Long conversation held regarding more healthy dietary habits * case and plan d/w patient and sister at length, they understood and agreed with this plan
[2018-05-18] MEDS: HumaLOG 300 UNITS/3 ML VIAL SC PRN ×3 (11:38→20:12)
[2018-05-18] MEDS: Gemfibrozil 600 MG TAB PO SCH (17:02)
[2018-05-18] MEDS ORDERED: Furosemide 40 MG/4 ML VIAL SLOW IVP SCH (18:00)
[2018-05-18] MEDS: Mometasone/Formoterol 120 PUFF INHALER INH SCH (19:33)
[2018-05-18] MEDS: Atorvastatin Calcium 40 MG TAB PO SCH (20:09)
[2018-05-18] MEDS: Multivit, Therapeutic 1 TAB PO SCH (20:10)
[2018-05-18] MEDS: Folic Acid 1 MG TAB PO SCH (20:20)
--- NOTE | 2018-05-18 20:34 | CON ---
DATE OF CONSULTATION: HISTORY OF PRESENT ILLNESS: Pradip Holley is a 62-year-old white male, who was hospitalized here in October [address] Bonilla. Mr. Holley presented complaining of 3 to 4 months of increased dyspnea and episodes of PND and orthopnea of 3 weeks prior to admission. He denies significant chest discomfort. He went to the emergency room, found to be in atrial fibrillation with rapid ventricular response. Heart rate in the 160s. He is drinking 2 to 3 beers per day and on the weekends 5 to 10 beers, was told he should never drink again. Echocardiogram during that admission revealed ejection fraction of 20% to 25% with global hypokinesis, moderate left atrial enlargement, [id number] mitral regurgitation, mild tricuspid regurgitation, and moderate pleural effusion. He underwent cardiac catheterization, which revealed an ejection fraction of 40%. He had no significant coronary artery disease. He underwent transesophageal echo, which revealed ejection fraction of 20% to 25%. There was a small thrombus in the left atrial appendage. Therefore, electrocardioversion was not performed. He was seen in the office on January 22, 2018, and Mr. Holley is back drinking 3 to 4 beers per day. He continued to remain in atrial fibrillation with heart rates in the 60s. The patient was not interested in LifeVest or AICD. He was rescheduled for transesophageal echo and electrocardioversion, however, that was not arranged. Mr. Holley is quite forthcoming and saying that over the last month, he has started taking many medicines. He again over the last 2 to 3 weeks, increased shortness of breath. He denies any chest discomfort. PAST MEDICAL HISTORY: Diabetes. Cardiomyopathy. OPERATIONS: Left shoulder surgery and appendectomy. MEDICATIONS: (noncompliant with these), 1. Amiodarone 200 mg b.i.d. 2. Eliquis 5 mg b.i.d. 3. Aspirin 325 daily. 4. Carvedilol 3.125 b.i.d. 5. Furosemide 40 mg b.i.d. 6. Digoxin 0.25 mg daily. 7. Metformin 1000 mg b.i.d. ALLERGIES: NONE. SOCIAL HISTORY: He does not smoke. He states he is back drinking 2 to 3 beers per day. FAMILY HISTORY: Unremarkable. REVIEW OF SYSTEMS: A 12-point review of systems is otherwise unremarkable. PHYSICAL EXAMINATION: VITAL SIGNS: Blood pressure 135/93, pulse of 95. HEENT: PERRL. NECK: Supple. CHEST: Reveals crackles at both bases. CARDIOVASCULAR: S1 and S2 are normal without any S3, S4, or murmurs. ABDOMEN: Normal bowel sounds. EXTREMITIES: Reveal 1+ pretibial edema. NEUROLOGIC: Grossly intact. SKIN: Warm and dry. LABORATORY DATA: EKG revealed atrial flutter with evidence of anterolateral ischemia with inverted T-waves. CBC is unremarkable. Sodium 134, potassium 3.7, chloride 99, carbon dioxide 28, BUN 19, creatinine 1.10, cholesterol 213, triglycerides 428, HDL 30, troponin I 0.033. IMPRESSION: 1. New onset atrial flutter. 2. Atrial fibrillation seen in October 2017. He was to undergo electrocardioversion but had thrombus in his left atrial appendage and repeat YUDY has not been performed yet. 3. Normal coronary arteries. 4. 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 5. ETOH use. 6. Diabetes. PLAN: The patient takes furosemide 20 mg b.i.d. at home, however, I do not see that on his medicine sheet at the present time. I will resume that and also since he does have some rales on examination at this time, I will give him a dose of intravenous Lasix. He has been back on his Eliquis now. Overall, it is recommended that he undergo transesophageal echo to evaluate again for intracardiac thrombus and then radiofrequency ablation. He will be kept n.p.o. after midnight. Job ID: [id number]
[2018-05-18] MEDS ORDERED: Insulin Glargine 10 UNITS in Pre-Filled Syringe 1 EACH SC SCH (21:00)
--- NOTE | 2018-05-19 01:13 | HP ---
CHIEF COMPLAINT: Chest discomfort and shortness of breath. HISTORY OF PRESENT ILLNESS: This is a 62-year-old male with past medical history of hyperlipidemia, diabetes mellitus type 2, presenting with shortness of breath and chest pain which has been ongoing for the past 2-3 weeks. The patient's shortness of breath has been associated with some dizziness. He feels some chest pressure and discomfort and he has seen deputy coroner investigator, Dr. Bonilla in the past and a cardiac cath was done during that time, which showed ejection fraction of 40%, and the patient was also found to be in AFib, RVR. During that time, an echo was done, which showed that the patient has ejection fraction between 20% to 25%. During the transesophageal echo, the patient was also noted to have small thrombus in the left atrial appendage; therefore, electrocardioversion was not done. At this point, the patient is in atrial fibrillation with RVR, still complaining of some chest discomfort and shortness of breath, especially with exertion. Otherwise, the patient denies any fever, chills, abdominal pain, constipation, diarrhea, hematuria, hematochezia, and melena. Of note, the patient's echo that was done showed left ventricular ejection fraction of 20%-25% with global hypokinesis. There was an AFib that was noted and this was a dilated left atrium with moderate pleural effusions noted. REVIEW OF SYSTEMS: Positive for chest pain, shortness of breath, dizziness, otherwise as documented in the HPI. All systems have been reviewed and are negative. PAST MEDICAL HISTORY: Hyperlipidemia and diabetes mellitus type 2. FAMILY HISTORY: Reviewed and noncontributory. PAST SURGICAL HISTORY: Left shoulder surgery and surgical history of appendectomy. PSYCHIATRIC HISTORY: No previous psych history. SOCIAL HISTORY: The patient drinks socially; however, the patient does have extensive drinking habits where the patient sometimes drinks a lot of beer. The patient denies illicit drug use, and the patient does not smoke. ALLERGIES: NO KNOWN DRUG ALLERGIES. CURRENT MEDICATIONS: The patient is on; 1. Aspirin 325 mg daily. 2. Digoxin 0.25 mg. 3. Amiodarone 200 mg. 4. Metformin 1000 mg. 5. Furosemide 40 mg. 6. Lisinopril 2.5 mg. 7. Eliquis 5 mg. 8. Carvedilol 3.125 mg. PHYSICAL EXAMINATION: VITAL SIGNS: The patient's blood pressure is 125/80, pulse of 141, respiratory rate of 22, and O2 sat of 95. GENERAL: The patient is lying in bed, does not appear to be in any acute distress at this time, able to speak to me in full sentences. HEENT: Normocephalic, atraumatic. Pupils are equally round and reactive to light. Extraocular movements are intact. No scleral icterus. No conjunctival pallor. The mucous membranes are moist. NECK: Trachea is midline. Full range of motion. LUNGS: Clear to auscultation bilaterally. No wheezing, no rales, no rhonchi appreciated. CARDIAC: Positive S1 and S2. Tachycardic. Irregularly irregular. ABDOMEN: Soft, nontender, and nondistended. EXTREMITIES: The patient has a 5/5 upper extremity strength and 5/5 lower extremity strength. The patient has mild right-sided calf tenderness. No edema noted at the extremities. The patient has good pulses. NEUROLOGIC: Cranial nerves 2 through 12 grossly intact. No neurologic deficits noted. SKIN: Warm, dry, and intact. PSYCH: Normal affect. DIAGNOSTIC DATA: A 12-lead EKG shows sinus tachycardia with a rate of 136. LABORATORY DATA: 1. WBC 7.3, hemoglobin is 17.5, hematocrit is 50.6, MCV is 86.8, RDW is 12.3. 2. Sodium is 129, potassium is 4.1, chloride is 87, carbon dioxide is 23, BUN is 25, creatinine is 1.56, glucose is 585, creatine kinase is 19, troponin is 0.033. Digoxin level is 0.15. ASSESSMENT AND PLAN: 1. This is Mr. Kishan Moseley being admitted for chest pain. At this point, we will rule out acute coronary syndrome. The patient's troponin is indeterminate at 0.033. At this point, we will start the patient on his home medications. We have consulted Cardiology, we will follow up with their recommendations. 2. Shortness of breath, likely due to acute on chronic systolic heart failure. At this point, the patient is going to be continued on his medications of Lasix. We have consulted Cardiology, we will follow up with their recommendations. 3. Hyperglycemia. At this point, we are going to start the patient on insulin drip and we are going to titrate the patient's insulin until we achieve glucose between 140 to 180. 4. Acute kidney injury likely due to dehydration. At this point, we will monitor the patient's creatinine. 5. Atrial fibrillation, rapid ventricular response. The patient is on Cardizem drip. We will titrate the patient's Cardizem drip until we achieve heart rate below 100. We have admitted the patient to the IM, and we will monitor the patient closely. 6. Hyperlipidemia. We will continue the patient on home medications. 7. Deep venous thromboses and gastrointestinal prophylaxis have been addressed. Job ID: [id number]
--- NOTE | 2018-05-19 04:41 | CON ---
DATE OF CONSULTATION: HISTORY OF PRESENT ILLNESS: A 62-year-old gentleman from [place], who presented yesterday with chest pain, shortness of breath, irregular heartbeat. He said he has seen a edi consultant, Dr. Bonilla, who had a catheterization done, found to be in atrial fibrillation. His heart was weak. He is a former smoker, up to a pack a day, though he said he quit smoking 10 days ago. He states at most days, he can walk a block without getting markedly short of breath. Since his admission, he was found to be in atrial fibrillation. He was still short of breath. No fever or chills, sweats or hemoptysis. PAST MEDICAL HISTORY: Diabetes, atrial fibrillation, coronary artery disease, tobacco abuse. PREVIOUS SURGERIES: Shoulder, appendix. ALCOHOL: Minimal. MEDICATIONS: List of medicine from home includes, 1. Metformin 1000 twice a day. 2. Zestril 1.25. 3. Lasix 40 twice a day. 4. Digoxin 0.25. 5. Coreg 3.125 twice a day. 6. Aspirin. 7. Eliquis 5 twice a day. 8. Amiodarone 200 twice a day. SOCIAL HISTORY: He is a transport truck driver, owns a . FAMILY HISTORY: Unremarkable. REVIEW OF SYSTEMS: Otherwise unremarkable. PHYSICAL EXAMINATION: VITAL SIGNS: His sats are 92% on room air, temperature 97, blood pressure 100/65, respiratory rate 18. CHEST: Decreased breath sounds. No wheezing. CARDIAC: Normal S1, S2. No gallops. ABDOMEN: No masses. LABORATORY DATA: His chest x-ray shows no acute infiltrates, some mild hyperinflation. His echocardiogram done about a year ago shows his EF was 25%. IMPRESSION: 1. Dyspnea secondary to congestive cardiomyopathy. 2. Probably some element of chronic obstructive pulmonary disease. 3. Atrial fibrillation. Input from Cardiology, start empirically on some breathing medication, supportive care. Consultation note, 70 minutes, 50% direct patient care. Job ID: [id number]
[2018-05-19] MEDS: Nitroglycerin 2% Ointment 1 INCH/1 GM Packet TOP SCH ×2 (05:28→16:50)
[2018-05-19] MEDS: HumaLOG 300 UNITS/3 ML VIAL SC PRN ×4 (06:03→20:32)
[2018-05-19 08:22] LABS: #Basophils 0.1 thou/uL (0.0-0.2); #Eosinphils 0.2 thou/uL (0.0-0.7); #Lymphocytes 2.2 thou/uL (1.20-3.40); #Monocytes 0.7 thou/uL (0.11-0.59); #Neutrophils 3.1 thou/uL (1.40-6.50); %Basophils 1.4 % (0.0-1.0); %Eosinophils 3.6 % (0.0-10.0); %Monocytes 10.7 % (0.0-10.0); %Neutrophils 49.3 % (42.0-75.0); Hemoglobin 16.7 g/dL (14.0-18.0); Mean Corpuscular HGB CONC 34.1 g/dL (32.0-36.0); Mean Corpuscular Hemoglobin 29.6 pg (27.0-31.0); Mean Corpuscular Volume 86.7 fL (78.0-98.0); Mean Platelet Volume 8.2 fL (7.4-10.4); Platelet Count 233 thou/uL (130-400); RBC Distribution Width 12.1 % (11.5-14.5); Red Blood Cell (RBC) Count 5.65 mill/uL (4.70-6.10); White Blood Cell (WBC) Count 6.3 thou/uL (4.8-10.8)
[2018-05-19] MEDS: Digoxin 0.25 MG TAB PO SCH (08:25)
[2018-05-19] MEDS: Carvedilol 3.125 MG TAB PO SCH ×2 (08:26→17:08)
[2018-05-19] MEDS: Gemfibrozil 600 MG TAB PO SCH ×2 (08:26→17:08)
[2018-05-19] MEDS: Famotidine/PF 20 mg/2ml Vial SLOW IVP SCH ×2 (08:26→20:31)
[2018-05-19] MEDS: Furosemide 40 MG TAB PO SCH ×2 (08:26→17:08)
[2018-05-19] MEDS: Amiodarone 200 MG TAB PO SCH ×2 (08:26→20:30)
[2018-05-19] MEDS: Famotidine 20 MG TAB PO SCH ×2 (08:26→20:29)
[2018-05-19] MEDS: Apixaban 5 MG TAB PO SCH ×2 (08:27→20:29)
[2018-05-19] MEDS: Aspirin 81 mg Enteric Coated Tablet PO SCH (08:27)
[2018-05-19 08:44] LABS: Anion Gap 12 mmol/L (10-20); BUN (Urea Nitrogen) 14 mg/dL (8.4-25.7); Calc. Creatinine Clearance 98 mL/min (70-130); Calcium 9.5 mg/dL (7.8-10.44); Carbon Dioxide 28 mmol/L (22-29); Chloride 99 mmol/L (98-107); Estimated GFR-MDRD 61; Glucose 318 mg/dL (70-105); Potassium 3.7 mmol/L (3.5-5.1); Sodium 135 mmol/L (136-145)
[2018-05-19] MEDS: Mometasone/Formoterol 120 PUFF INHALER INH SCH (08:56)
--- NOTE | 2018-05-19 11:09 | PRG ---
DATE OF SERVICE: 05/19/2018 SUBJECTIVE: This morning, he is better. He is due to see EP for possible ablation. OBJECTIVE: VITAL SIGNS: Temperature 98, sats 94%_ on room air, respiratory rate 16, pulse 80, and blood pressure ____130\70 . CHEST: Decreased breath sounds. No wheezing. CARDIAC: Normal S1 and S2. No gallops. ABDOMEN: No masses. IMPRESSION: Supraventricular tachycardia. 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 We will make his [facility] will follow while in the MICU. Job ID: [id number] [facility]TD[facility]
[2018-05-19] MEDS ORDERED: DOPamine 400 MG/D5W 250 ML 250 ML ONE (12:28)
[2018-05-19] MEDS ORDERED: Heparin 10,000 UNITS/1 ML VIAL ONE (12:28)
[2018-05-19] MEDS ORDERED: Furosemide 20 MG/2 ML VIAL SLOW IVP SCH (12:45)
[2018-05-19] MEDS ORDERED: Fentanyl 100 MCG/2 ML VIAL ONE (13:20)
[2018-05-19] MEDS ORDERED: Propofol 500 MG/50 ML VIAL ONE (13:20)
[2018-05-19] MEDS ORDERED: Midazolam HCl 2 mg/2 ml Vial ONE (13:20)
[2018-05-19] MEDS ORDERED: PROPOFOL 200 MG/20 ML VIAL ONE (16:32)
--- NOTE | 2018-05-19 17:36 | PDOC.CTH ---
Cardiology Progress Note - Subjective He was seen earlier today, This is a late entry. He was on the fence about an AICD. I read his echo and his LV function has actually improved to close to normal and no longer needs an AICD. - Objective Vital Signs Temp Pulse Resp BP Pulse Ox 05/19/18 11:11 98.0 F 81 16 97 05/19/18 10:57 77 97/73 05/19/18 08:25 81 05/19/18 08:00 95 05/19/18 07:32 98.7 F 81 16 98/66 95 Weight 237 lb 3.478 oz 05/18/18 05/19/18 05/20/18 06:59 06:59 06:59 Intake Total 520 2550 Output Total 600 4200 Balance -80 -1650 - Physical Examination General/Neuro: alert & oriented x3, NAD Neck: no JVD present Lungs: CTA, unlabored respirations Heart: RRR Abdomen: NT/ND Extremities: + edema B (Trace) - Telemetry Telemetry Rhythm: NSR - Labs Result Diagrams: 05/19/18 08:08 05/19/18 08:08 Troponin/CKMB CK-MB (CK-2) 3.0 ng/mL (0-6.6) 05/17/18 15:05 Troponin I 0.033 ng/mL (< 0.028) H 05/17/18 15:05 - Assessment/Plan 1. Atrial flutter 2. Paroxysmal afib 3. Non ischemic CM 4. Alcohol use 5. Non compliance PLAN: - Agree with flutter ablation per Dr. Thompson. - Improved LV function so no indication for AICD at this time. - Continue medical therapy for NICM - Continue to recommend abstinence from alcohol. - Cannot add ACEI due to borderline low BP. - Continue BB for now.
--- NOTE | 2018-05-19 17:51 | PDOC.PN ---
- Subjective Encounter Start Date: 05/19/18 Encounter Start Time: 17:49 Mr. Holley was seen today in follow-up of Atrial Flutter. He is post ablation. He does not have any complaints. - Objective Resuscitation Status - Order Detail: 05/17/18 22:53 Resuscitation Status Routine Resuscitation Status: FULL: Full Resuscitation MAR Reviewed: Yes Vital Signs & Weight: Vital Signs (12 hours) Temp Pulse Resp BP Pulse Ox 05/19/18 11:11 98.0 F 81 16 97 05/19/18 10:57 77 97/73 05/19/18 08:25 81 05/19/18 08:00 95 05/19/18 07:32 98.7 F 81 16 98/66 95 Weight Weight 237 lb 3.478 oz I&O: 05/18/18 05/19/18 05/20/18 06:59 06:59 06:59 Intake Total 520 2550 Output Total 600 4200 Balance -80 -1650 Result Diagrams: 05/19/18 08:08 05/19/18 08:08 Additional Labs: Accuchecks 05/19/18 05/18/18 06:02 19:52 POC Glucose 367 H 462 H Phys Exam - Physical Examination HEENT: PERRLA Respiratory: no wheezing, no rales, no rhonchi, clear to auscultation bilateral Cardiovascular: RRR, no significant murmur, no rub Gastrointestinal: soft, non-tender, no distention, positive bowel sounds Musculoskeletal: no edema, pulses present Neurological: non-focal Dx/Plan (1) Atrial flutter Code(s): I48.92 - UNSPECIFIED ATRIAL FLUTTER Status: Acute (2) Chronic systolic heart failure Code(s): I50.22 - CHRONIC SYSTOLIC (CONGESTIVE) HEART FAILURE Status: Chronic (3) Chronic alcohol use Code(s): Z72.89 - OTHER PROBLEMS RELATED TO LIFESTYLE Status: Chronic Comment: Counselled. (4) DM2 (diabetes mellitus, type 2) Status: Chronic - Plan * Atrial Flutter- he is post ablation- continue Carvediolol, and Amiodarone * Chronic systolic heart failure- Echo results noted, his EF has improved, and he will no longer require AICD * DM- blood glucose has been elevated- will increase his dose of Lantus- Metformin can be restarted in 48 hours * Disposition per Cardiology/ EP
--- NOTE | 2018-05-19 18:40 | CON ---
DATE OF CONSULTATION: 05/19/2018 ADDITIONAL REFERRING PHYSICIAN: Dr. Bonilla, his primary carpet yarn winder operator. HISTORY OF PRESENT ILLNESS: I am seeing Mr. Holley at our [facility] ICU as Electrophysiology product management consultant. His problems are: 1. Recurrent atrial arrhythmias: a. History of new onset atrial fibrillation noted in October 2017, subsequent amiodarone use and digoxin for rate control. b. History of left atrial appendage clot in October on YUDY, preventing cardioversion with conversion noted later. c. Recurrent typical atrial flutter on current presentation in May 2018. 2. History of systolic congestive heart failure with nonischemic cardiomyopathy. a. 2D echo from October 2018 shows no significant coronary artery disease. LVEF was 40%. 3. Risk factors including diabetes. 4. History of EtOH use. ALLERGIES: NONE NOTED. MEDICATIONS: At home included: 1. Metformin. 2. Amiodarone 200 mg daily. 3. Eliquis. 4. Carvedilol. 5. Digoxin. 6. Lisinopril. 7. Aspirin. 8. Furosemide. SUBJECTIVE: Mr. Holley is here due to progressive shortness of breath, typical chest pain for the last 2 to 3 weeks. He had some mild dizziness at times with dyspnea. He brought to the ER and he was noted to be in atrial flutter with rapid rate. He received IV diltiazem and digoxin for further rate control. Eventually, the atrial flutter terminated and he is back in sinus rhythm today. Currently, he is asymptomatic. He denies chest pain. No fever, chills, or cough. No stroke- like symptoms. No neurological deficits. No PND or orthopnea noted either. The rest of 12-point system otherwise unremarkable. PAST MEDICAL HISTORY: As above. PAST SURGICAL HISTORY: Significant for left shoulder surgery and appendectomy in the past. SOCIAL HISTORY: The patient drinks socially on occasion, binges with beer. Denies drug abuse. Does not smoke. FAMILY HISTORY: Not contributory. PHYSICAL EXAMINATION: VITAL SIGNS: Blood pressure is 97/73, heart rate 77, respirations 12, and temperature 98.7 degrees Fahrenheit. GENERAL: Reveals an alert and oriented man, in no apparent distress. NECK: Supple. Jugular veins not distended. CHEST: Coarse without crackles. HEART: Sounds are regular to rate and rhythm. No murmur or gallop. ABDOMEN: Benign. Bowel sounds are positive. EXTREMITIES: Lower extremities without edema, clubbing, or cyanosis. Pulses are adequate. NEUROLOGIC: The patient is nonfocal. MUSCULOSKELETAL: Without joint swelling or deformity. SKIN: Without rash. DATABASE: EKG is reviewed. Initial EKG reveals a typical appearing atrial flutter with 2:1 AV conduction, rate of 136 beats per minute. QRS is narrow at 108 milliseconds. QTc is 532. Subsequent EKGs reveal decreasing rates with continued atrial flutter. Most recent EKGs reveal sinus rhythm, cannot completely rule out short atrial fibrillation either. LABORATORY DATA: White cell count 6.3, hemoglobin is 16.7, platelet count is 233. Sodium 135, potassium 3.7, BUN is 14, and creatinine 1.22. 2D echo from 05/18/2018 reveals LVEF 45% to 50%. ASSESSMENT AND PLAN: Mr. Holley is a pleasant 62-year-old man with prior history of newly found atrial fibrillation/flutter and likely related nonischemic cardiomyopathy back in October. Since then, his LVEF seems to have somewhat improved on a followup echocardiogram at 45% to 50% range. He had presented on the recurrent atrial flutter despite continued amiodaronone. Plans: 1. Atrial flutter: We discussed the etiology and pathomechanism of the atrial flutter, the difference in atrial flutter and fibrillation, potential treatment options, which could include rate control, cardioversion, and also ablation therapy. He would prefer a more definitive approach and be agreed with cavotricuspid isthmus ablation, which is most likely will control his most rapid atrial rhythm. 2. Antiarrthyhmic use: At this point, we cannot completely rule out presence of atrial fibrillation if and when amiodarone gets stopped. Hence, his LVEF is improved, stopping amiodarone would not be unreasonable should there recurrent atrial fibrillation occur, he may be a good candidate for pulmonary venous isolation procedure so in the future. 3. OAC:Although, he had left atrial appendage clot, currently he is back in sinus rhythm. At this point, clinically, no major benefits from adding YUDY, but he will likely need anticoagulation after discharge. I am happy to perform the ablation procedure for him and proceed at the nearest date. We will see him also in an outpatient. Thank you again for allowing me to participate in the care this patient. Job ID: [id number] [facility]
[2018-05-19] MEDS: Folic Acid 1 MG TAB PO SCH (20:29)
[2018-05-19] MEDS: Atorvastatin Calcium 40 MG TAB PO SCH (20:29)
[2018-05-19] MEDS: Multivit, Therapeutic 1 TAB PO SCH (20:30)
[2018-05-19] MEDS ORDERED: Insulin Glargine 20 UNITS in Pre-Filled Syringe 1 EACH SC SCH (21:00)
--- NOTE | 2018-05-19 21:11 | OP ---
DATE OF PROCEDURE: 05/19/2018 This is an electrophysiology study and radiofrequency ablation report. PRIMARY NUCLEAR POWERPLANT MECHANIC HELPER: Harshil Bonilla MD REASON FOR PROCEDURE: Mr. Holley is a 62-year-old man with prior history of presentation with acute systolic heart failure in October along with atrial fibrillation/flutter. He was placed on Cordarone. Later, left heart catheterization showed no significant coronary artery disease and mildly improved LVEF from initial 25% to 30% to 40%. Most recent echo shows LVEF in normal range. The patient has been readmitted with atrial flutter with rapid rates. Subsequently, the patient continued on home Cordarone and he is self cardioverted back to sinus rhythm, here for EP study and possible ablation of the atrial flutter circuit. DESCRIPTION OF PROCEDURE: The patient received propofol by Anesthesia specialist. After adequate oral sedation achieved, the right femoral venous area was prepped , draped, and anesthetized using subcutaneous lidocaine and under ultrasound guidance, two 8-Georgian short sheaths were introduced. Through this, a decapolar catheter was advanced to the right atrium, right ventricle, His bundle, and eventually CS position. Pacing, mapping, and recording were obtained in each chamber. Also, a ThermoCool SFST catheter was advanced to the right atrium and 3D map for the right atrium, coronary sinus, His bundle area, and the cavotricuspid isthmus area was obtained. Following findings were found. Baseline rhythm is sinus rhythm at 710 milliseconds, DC 189, QRS 65, QT 373, AH 129, HV 61 milliseconds. Sinus node recovery time was found to be 1411 milliseconds. Corrected sinus node recovery time was 580 milliseconds. AV Wenckebach cycle length was 410 milliseconds. Retrograde Wenckebach cycle length was 610 milliseconds. AV node ERP was 600/300 milliseconds. Concentric retrograde VA conduction seen. No dual AV miya physiology was seen except for a jump prior to the block is seen. Burst atrial pacing induced short nonsustained atrial flutter, appears to be typical isthmus dependent in activation. Following that, cavotricuspid isthmus ablation was performed during CS proximal pacing, increasing the transisthmus line from initial 30 milliseconds to 120 milliseconds. At the shortest, some posterior early conduction was seen. In the anterior portion of the line, the transisthmus line was over 170 milliseconds. Following that, burst atrial pacing was performed and did not induce atrial flutter. Dopamine was administered and the patency of the transisthmus line was rechecked. Unipolar block was demonstrated by longest transisthmus by the ablation line. At the end of the case, the cardiac silhouette was checked and it appears to show no changes. The patient remained stable. A total of 9 lesions delivered at total duration of 6 minutes and 52 milliseconds at 40 [place]. CONCLUSION: 1. Successful cavo-tricuspid isthmus ablation. 2. Abnormal sinus miya recovery time possibly due to concomitant Cordarone and recent diltiazem use. 3. Normal AV node and His-Purkinje system function and no evidence of accessory pathway. PLAN: Continue anticoagulation for at least a month. Continue monitor for recurrent arrhythmias. Consider stopping amiodarone. If recurrent atrial flutter or fibrillation seen, consider repeat ablation. Job ID: [id number] [facility]
[2018-05-20] MEDS: Nitroglycerin 2% Ointment 1 INCH/1 GM Packet TOP SCH ×3 (00:30→14:01)
[2018-05-20] MEDS: HumaLOG 300 UNITS/3 ML VIAL SC PRN ×2 (05:51→11:37)
[2018-05-20] MEDS ORDERED: Furosemide 40 MG TAB PO SCH (07:30)
[2018-05-20 07:56] VITALS: TEMP 97.9
[2018-05-20] MEDS: Carvedilol 3.125 MG TAB PO SCH (09:03)
[2018-05-20] MEDS: Digoxin 0.25 MG TAB PO SCH (09:03)
[2018-05-20] MEDS: Gemfibrozil 600 MG TAB PO SCH (09:04)
[2018-05-20] MEDS: Apixaban 5 MG TAB PO SCH (09:04)
[2018-05-20] MEDS: Famotidine/PF 20 mg/2ml Vial SLOW IVP SCH (09:04)
[2018-05-20] MEDS: Amiodarone 200 MG TAB PO SCH (09:04)
[2018-05-20] MEDS: Aspirin 81 mg Enteric Coated Tablet PO SCH (09:04)
[2018-05-20] MEDS: Famotidine 20 MG TAB PO SCH (09:04)
--- NOTE | 2018-05-20 11:07 | PRG ---
DATE OF SERVICE: 05/20/2018 OBJECTIVE: GENERAL: This morning, he is awake, alert, responsive, no shortness of breath. VITAL SIGNS: Temperature 97, pulse 71, sats 97%, blood pressure 104/65. CHEST: Decreased breath sounds, no wheezing. CARDIAC: Normal S1 and S2. No gallops. ABDOMEN: No masses. IMPRESSION: Alcohol abuse, cardiomyopathy, supraventricular tachycardia. Dyspnea stable. Disposition as per Cardiology. Pulmonary, follow at a distance. Job ID: [id number]
[2018-05-20 12:58] VITALS: BP 97/71
--- NOTE | 2018-05-20 13:07 | PDOC.PN ---
- Subjective Encounter Start Date: 05/20/18 Encounter Start Time: 13:05 Mr. Holley was seen today in follow-up of Atrial Flutter. He does not have any complaints today. - Objective Resuscitation Status - Order Detail: 05/17/18 22:53 Resuscitation Status Routine Resuscitation Status: FULL: Full Resuscitation MAR Reviewed: Yes Vital Signs & Weight: Vital Signs (12 hours) Temp Pulse Resp BP BP Pulse Ox 05/20/18 12:00 97.9 F 76 18 97/71 96 05/20/18 09:03 71 05/20/18 08:00 98 05/20/18 07:55 97.9 F 71 18 104/65 97 05/20/18 04:00 98.6 F 107 H 20 107/75 97 Weight Weight 237 lb 3.478 oz I&O: 05/19/18 05/20/18 05/21/18 06:59 06:59 06:59 Intake Total 2550 800 Output Total 4200 1520 Balance -1650 -720 Result Diagrams: 05/19/18 08:08 05/19/18 08:08 Additional Labs: Accuchecks 05/20/18 05/20/18 05/19/18 11:09 05:38 20:23 POC Glucose 336 H 280 H 291 H 05/19/18 05/19/18 16:19 10:34 POC Glucose 284 H 331 H Phys Exam - Physical Examination HEENT: PERRLA Respiratory: no wheezing, no rales, no rhonchi, clear to auscultation bilateral Cardiovascular: RRR, no significant murmur, no rub Gastrointestinal: soft, non-tender, positive bowel sounds Musculoskeletal: no edema Dx/Plan (1) Atrial flutter Code(s): I48.92 - UNSPECIFIED ATRIAL FLUTTER Status: Acute (2) Chronic systolic heart failure Code(s): I50.22 - CHRONIC SYSTOLIC (CONGESTIVE) HEART FAILURE Status: Chronic (3) Chronic alcohol use Code(s): Z72.89 - OTHER PROBLEMS RELATED TO LIFESTYLE Status: Chronic Comment: Counselled. (4) DM2 (diabetes mellitus, type 2) Status: Chronic - Plan * Atrial flutter- he is s/p ablation * DM- blood glucose is elevated- will add Glipizide to Metformin at discharge * CHF- compensated * Disposition as per Cardiology
--- NOTE | 2018-05-20 14:34 | PDOC.CTH ---
Cardiology Progress Note - Subjective EP PROGRESS NOTE: 05/20/18 Seen and evaluated as follow up for atrial arrhythmias post ablation. Preparing for DC home today. Feels great. No cardiac concerns/ complaints. Groin site not painful. No chest pain or palpitations. - Objective Vital Signs Temp Pulse Resp BP BP Pulse Ox 05/20/18 12:00 97.9 F 76 18 97/71 96 05/20/18 09:03 71 05/20/18 08:00 98 05/20/18 07:55 97.9 F 71 18 104/65 97 05/20/18 04:00 98.6 F 107 H 20 107/75 97 Weight 237 lb 3.478 oz 05/19/18 05/20/18 05/21/18 06:59 06:59 06:59 Intake Total 2550 800 Output Total 4200 1520 Balance -1650 -720 - Physical Examination General/Neuro: alert & oriented x3, NAD Neck: carotid US brisk, no JVD present Lungs: CTA, unlabored respirations Heart: PMI normal, RRR Abdomen: NT/ND, soft - Telemetry Telemetry Rhythm: SR - Labs Result Diagrams: 05/19/18 08:08 05/19/18 08:08 Troponin/CKMB CK-MB (CK-2) 3.0 ng/mL (0-6.6) 05/17/18 15:05 Troponin I 0.033 ng/mL (< 0.028) H 05/17/18 15:05 - Assessment/Plan 1. Typical atrial flutter s/p CTI albation 05/19/18 2. History of atrial fibrillation -suppressed with amiodarone 3. Oral anticoagulation on Eliquis 5mg BID 4. Alcohol abuse 5. Cardiomyopathy, nonischemic -recovered Stop drinking alcohol. Continue eliquis. Follow up with [facility] in 4-6 weeks. OK to DC home by EP
--- NOTE | 2018-05-20 15:05 | PDOC.CTH ---
Cardiology Progress Note - Subjective He is doing much better. He had his aflutter ablation without issues yesterday. - Objective Vital Signs Temp Pulse Resp BP BP Pulse Ox 05/20/18 12:00 97.9 F 76 18 97/71 96 05/20/18 09:03 71 05/20/18 08:00 98 05/20/18 07:55 97.9 F 71 18 104/65 97 05/20/18 04:00 98.6 F 107 H 20 107/75 97 Weight 237 lb 3.478 oz 05/19/18 05/20/18 05/21/18 06:59 06:59 06:59 Intake Total 2550 800 Output Total 4200 1520 Balance -1650 -720 - Physical Examination General/Neuro: alert & oriented x3, NAD Neck: no JVD present Lungs: CTA, unlabored respirations Heart: RRR Abdomen: NT/ND Extremities: other: (no edema) - Telemetry Telemetry Rhythm: NSR - Labs Result Diagrams: 05/19/18 08:08 05/19/18 08:08 Troponin/CKMB CK-MB (CK-2) 3.0 ng/mL (0-6.6) 05/17/18 15:05 Troponin I 0.033 ng/mL (< 0.028) H 05/17/18 15:05 - Assessment/Plan 1. Non ischemic CM, improved EF now at 45-50% 2. Afib 3. Aflutter s/p ablation 4. Alcohol use 5. Non compliance. PLAN: - Counseled on cessation of alcohol. - Counseled on importance of compliance. - Continue amiodarone and Eliquis. - Will stop digoxin and adjust amiodarone to once a day for maintenance. - May d/c home today. - Follow up in office in 1-2 months.
--- NOTE | 2018-05-21 07:02 | DIS ---
DATE OF ADMISSION: 05/17/2018 DATE OF DISCHARGE: 05/20/2018 PRIMARY CARE PHYSICIAN: Dr. Diaz. DISCHARGE DISPOSITION: Home. PRIMARY DISCHARGE DIAGNOSES: 1. Atrial flutter. 2. Diabetes mellitus type 2, uncontrolled. 3. Dyslipidemia. DISCHARGE MEDICATIONS: Include: 1. Lisinopril 2.5 mg. He takes a half a tablet daily. 2. Glipizide 5 mg daily. 3. Lasix 40 mg daily. 4. Carvedilol 3.125 mg twice daily. 5. Lipitor 40 mg at bedtime. 6. Aspirin 81 mg daily. 7. Eliquis 5 mg twice daily. 8. Amiodarone 200 mg daily. 9. Metformin a 1000 mg twice daily. PROCEDURES DONE DURING THE ADMISSION: The patient had an echocardiogram in which the ejection fraction was estimated at 45% to 50%. There was noted atrial flutter during the study. There was some concentric left ventricular hypertrophy, but no significant valvular disease. The patient had a successful cavotricuspid isthmus ablation. CODE STATUS: Full code. ALLERGIES: NO KNOWN DRUG ALLERGIES. HOSPITAL COURSE: Mr. Holley is a pleasant 62-year-old gentleman, who presented to the emergency room with complaints of chest discomfort and shortness of breath. When he was admitted, he was found to be in atrial fibrillation with RVR, which was very brief and then he converted into atrial flutter. He was seen by both Cardiology as well as the offbearer sewer pipe and the decision was made for the patient to undergo ablation. Also during this time, the patient was treated for mild exacerbation of congestive heart failure and diuresed. He had an echo done, which showed an actual improvement in his ejection fraction from approximately 25% up to 45%. There was some thought that he might require an AICD, but with the improvement in his ejection fraction, he would not need this. Therefore, after having the ablation, the patient was able to be discharged home. Glyburide was added to metformin due to elevated blood glucose and Lipitor was added to help with his dyslipidemia. The dose of the amiodarone was changed to daily instead of twice a day and that the digoxin was discontinued since he had had the ablation. He is stable for discharge and is to have close outpatient followup with his primary care physician in 1 to 2 weeks and also with Dr. Bonilla as well as Dr. Thompson as instructed. Job ID: [id number]
[2018-05-21] MEDS ORDERED: Amiodarone 200 MG TAB PO SCH (09:00)
== END 2018-05-20 15:57 | disposition home or self-care (01) | DRG 273 ==
LOC: ERS 14:53 → ERHOLD 17:36 → IMCU/EMU 22:05
PROVIDERS: ADMIT Family Medicine; ATTEND Family Medicine
PROC: 4A023FZ Measurement of Cardiac Rhythm, Percutaneous Approach (ICD-10-PCS; principal; 2018-05-19)
PROC: 02583ZZ Destruction of Conduction Mechanism, Percutaneous Approach (ICD-10-PCS; 2018-05-19)
PROC: 4A0234Z Measurement of Cardiac Electrical Activity, Percutaneous Approach (ICD-10-PCS; 2018-05-19)
PROC: 02K83ZZ Map Conduction Mechanism, Percutaneous Approach (ICD-10-PCS; 2018-05-19)
DX: I48.0 Paroxysmal atrial fibrillation (principal); I50.23 Acute on chronic systolic (congestive) heart failure; N17.9 Acute kidney failure, unspecified; I48.92 Unspecified atrial flutter; E78.5 Hyperlipidemia, unspecified; Z79.82 Long term (current) use of aspirin; E11.65 Type 2 diabetes mellitus with hyperglycemia; E86.0 Dehydration; E66.9 Obesity, unspecified; Z68.35 Body mass index [BMI] 35.0-35.9, adult; I42.0 Dilated cardiomyopathy; F10.10 Alcohol abuse, uncomplicated
CPT/HCPCS: 36415; 36416; 71045; 76942; 80048; 80053; 80061; 80069; 80162; 80306; 82550; 82553; 83690; 83735; 83880; 84484; 85025; 93005; 93010; 93306; 93613; 93623; 93653; 94760; 96361; 96365; 96366; 96375; C1730; J1160; J1265; J1644; J1815; J1940; J2250; J2704; J3010; J3480; J7050

== ENCOUNTER 2019-07-31 11:04 | Inpatient (IN) | payer SELFPAY ==
[2019-07-31] MEDS ORDERED: Diltiazem 125 MG/25 ML ONE (11:27)
[2019-07-31 11:31] LABS: #Basophils 0.1 thou/uL (0.0-0.2); #Eosinphils 0.1 thou/uL (0.0-0.7); #Lymphocytes 1.3 thou/uL (1.20-3.40); #Monocytes 0.6 thou/uL (0.11-0.59); #Neutrophils 2.4 thou/uL (1.40-6.50); %Basophils 1.4 % (0.0-1.0); %Eosinophils 1.8 % (0.0-10.0); %Monocytes 12.8 % (0.0-10.0); Hemoglobin 16.2 g/dL (14.0-18.0); Mean Corpuscular HGB CONC 33.3 g/dL (32.0-36.0); Mean Corpuscular Hemoglobin 29.8 pg (27.0-31.0); Mean Corpuscular Volume 89.4 fL (78.0-98.0); Mean Platelet Volume 8.8 fL (7.4-10.4); Platelet Count 179 thou/uL (130-400); RBC Distribution Width 14.2 % (11.5-14.5); Red Blood Cell (RBC) Count 5.43 mill/uL (4.70-6.10); White Blood Cell (WBC) Count 4.3 thou/uL (4.8-10.8)
--- NOTE | 2019-07-31 11:36 | RAD ---
XR Chest 1 View Portable HISTORY: Chest pain, shortness of breath and tachycardia COMPARISON: 05/17/2018 FINDINGS: The heart size is normal. The lungs are well expanded without focal areas of consolidation, pneumothorax or pleural effusions. IMPRESSION: No radiographic evidence of acute cardiopulmonary process.
[2019-07-31 11:48] LABS: ALT (SGPT) 62 U/L (8-55); AST (SGOT) 30 U/L (5-34); Albumin 4.1 g/dL (3.4-4.8); Alkaline Phosphatase 91 U/L (40-110); Anion Gap 16 mmol/L (10-20); BUN (Urea Nitrogen) 15 mg/dL (8.4-25.7); Bilirubin, Total 0.8 mg/dL (0.2-1.2); CK (CPK) 35 U/L (30-200); Calc. Creatinine Clearance 0 mL/min (70-130); Calcium 9.5 mg/dL (7.8-10.44); Carbon Dioxide 23 mmol/L (23-31); Chloride 100 mmol/L (98-107); Estimated GFR-MDRD 56; Globulin 2.7 g/dL (2.4-3.5); Glucose 492 mg/dL (80-115); Magnesium 1.5 mg/dL (1.6-2.6); Potassium 4.3 mmol/L (3.5-5.1); Protein, Total 6.8 g/dL (5.8-8.1); Sodium 135 mmol/L (136-145)
[2019-07-31 12:14] LABS: CKMB 1.4 ng/mL (0-6.6)
[2019-07-31] MEDS ORDERED: Magnesium 2 GM/50 ML BAG (IN WATER) ONE (12:27)
--- NOTE | 2019-07-31 12:53 | PDOC.FPRHP ---
- History of Present Illness Chief Complaint: Chest pain History of Present Illness: 63 yo M with past medical history of Afib, DM2, HTN, HLD who presented to the ED with worsening dyspnea and palpitations. He has a history of a fib and has been admitted 3 times in the last 3 years for afib with RVR. He has not been taking his amiodarone or eliquis for the last several weeks because he cannot afford it. He says he has been having symptoms for the past month that have been progressively worsening. He called Dr. Bonilla's office 4 days ago and they told him to come in to the hospital. He decide to come in today, because it go to the point he could not tolerate it any longer. He says he know when he goes into RVR. He has had associated chest tightness, orthopnea, VIGIL. Denies any fever, chills, vision changes, headaches, n/v, diarrhea. He has had no recent travel, no sick contacts. ED Course: In the ED, he was in A fib with RVR and he was given diltiazem 10 mg IVP X2, mag sulfate 2 mg, 1 L NS - Allergies/Adverse Reactions Allergies Allergy/AdvReac Type Severity Reaction Status Date / Time No Known Allergies Allergy Verified 07/25/19 23:43 - Home Medications Medication Instructions Recorded Confirmed Type metFORMIN [Glucophage] 1,000 mg PO BID-WM 10/05/17 05/17/18 History Apixaban [Eliquis] 5 mg PO BID #60 tab 10/11/17 05/17/18 Rx Carvedilol [Coreg] 3.125 mg PO BID-WM #60 tab 10/11/17 05/17/18 Rx Lisinopril [Zestril] 1.25 mg PO DAILY #30 tab 10/11/17 05/17/18 Rx Amiodarone [Cordarone] 200 mg PO DAILY #30 tab 05/20/18 Rx Aspirin [Ecotrin Low Strength] 81 mg PO DAILY tab 05/20/18 Rx Atorvastatin Calcium [Lipitor] 40 mg PO HS #30 tab 05/20/18 Rx Furosemide [Lasix] 40 mg PO DAILY #30 tab 05/20/18 Rx glipiZIDE [glipiZIDE ER] 5 mg PO QAM-WM #30 tab.er.24 05/20/18 Rx - History PMHx: Afib, HTN, HLD, DMII PSHx: Appendectomy (17 years old), R shoulder surgery (2010), Ablation (05/19/19) FHx: Gallstones in mother, brother, and 2 sisters. Social: 2-3 beers a day, never more than a 6 pack, denies smoking. Quit smoking 12 years ago. Hx of smoking > 30 years, 3/4 PPD. Smokes Marijuana from time to time. Last smoked 1 week ago. Smokes 3x/M. - Review of Systems General: reports: weight/appetite/sleep changes. denies: fever/chills Eyes: denies: eye pain, vision changes ENT: denies: nasal congestion, rhinorrhea Respiratory: reports: shortness of breath. denies: cough, congestion Cardiovascular: reports: chest pain, palpitation, orthopnea Gastrointestinal: reports: abdominal pain. denies: nausea, vomiting, diarrhea Genitourinary: denies: incontinence, dysuria Skin: denies: rashes, lesions Musculoskeletal: denies: pain, tenderness Neurological: denies: numbness, syncope Psychological: denies: anxiety, depression - Vital signs BP: 109/75 HR: 88 RR: 16 Tmax: 98.1 Pox: 96% on RA Wt: 107 kg - Physical Exam Constitutional: NAD, awake, alert and oriented, well developed HEENT: normocephalic and atraumatic, PERRLA, EOMI, grossly normal vision, normal nasal mucosa, MMM Neck: supple, FROM, trachea midline Heart: RRR, normal S1/S2, no murmurs/rubs/gallops Lungs: CTAB, no respiratory distress, good air movement, no rales/rhonchi Abdomen: soft, non-tender, bowel sounds present Musculoskeletal: normal structure, normal tone, ROM grossly normal Neurological: no focal deficit, CN II-XII intact Skin: no rash/lesions, good turgor, capillary refill <2 seconds Heme/Lymphatic: no unusual bruising or bleeding, no purpura, no petechia Psychiatric: normal mood and affect, good judgment and insight, intact recent and remote memory FMR H&P: Results - Labs Result Diagrams: 07/31/19 11:17 07/31/19 11:17 Lab results: WBC 4.3 thou/uL (4.8-10.8) L 07/31/19 11:17 Hgb 16.2 g/dL (14.0-18.0) 07/31/19 11:17 Hct 48.5 % (42.0-52.0) 07/31/19 11:17 MCV 89.4 fL (78.0-98.0) 07/31/19 11:17 Plt Count 179 thou/uL (130-400) 07/31/19 11:17 Neutrophils % 55.0 % (42.0-75.0) 07/31/19 11:17 Sodium 135 mmol/L (136-145) L 07/31/19 11:17 Potassium 4.3 mmol/L (3.5-5.1) 07/31/19 11:17 Chloride 100 mmol/L (98-107) 07/31/19 11:17 Carbon Dioxide 23 mmol/L (23-31) 07/31/19 11:17 BUN 15 mg/dL (8.4-25.7) 07/31/19 11:17 Creatinine 1.31 mg/dL (0.7-1.3) H 07/31/19 11:17 Glucose 492 mg/dL (80-115) H 07/31/19 11:17 Calcium 9.5 mg/dL (7.8-10.44) 07/31/19 11:17 Total Bilirubin 0.8 mg/dL (0.2-1.2) 07/31/19 11:17 AST 30 U/L (5-34) 07/31/19 11:17 ALT 62 U/L (8-55) H 07/31/19 11:17 Alkaline Phosphatase 91 U/L (40-110) 07/31/19 11:17 Creatine Kinase 35 U/L (30-200) 07/31/19 11:17 CK-MB (CK-2) 1.4 ng/mL (0-6.6) 07/31/19 11:17 Serum Total Protein 6.8 g/dL (5.8-8.1) 07/31/19 11:17 Albumin 4.1 g/dL (3.4-4.8) 07/31/19 11:17 - EKG Interpretation EKG: A fib with RVR - Radiology Interpretation Chest x-ray Status: image reviewed by me, report reviewed by me (No acute cardiopulmonary findings) FMR H&P: A/P - Problem List (1) Atrial fibrillation with RVR Current Visit: No Status: Acute Code(s): I48.91 - UNSPECIFIED ATRIAL FIBRILLATION Comment: New onset, YUDY - KENAN thrombus (No CV done) (2) DM2 (diabetes mellitus, type 2) Current Visit: No Status: Chronic (3) Obesity (BMI 30-39.9) Current Visit: No Status: Chronic Code(s): E66.9 - OBESITY, UNSPECIFIED Comment: Counselled - Plan 63 yo M with past medical history of Afib, DM2, HTN, HLD who presented to the ED with worsening dyspnea and palpitations. 1. Afib with RVR, with prior Hx Prescribed amiodarone and Eliquis but unable to afford * In ED he received * Diltiazem 10 mg IVP x2 * Mag was 1.5 and replaced * 1L NS * Last ECHO (05/19/18): EF 45-50%, Mild concentric LVH, Mild MR, Mild LA dilation , Mild TR, AV Sclerosis, Small Pericardial effusion * Ablation 05/19/18 * Pt says he has a history of ECHO and Cath in 03/25, but do not have results * Community Facilitator, Dr. Bonilla, who was consulted by ED MD. * Ordered ECHO * TSH wnl * Ordered Phos, A1C, Lipid Panel * Not currently taking statin, was previously on one * Trop: 0.049 * Will trend 2. DMII B * Home Medications: Lisinopril, Metformin, ASA * SSI, Hypoglycemic Protocol * Ordered A1c * ACHS Accuchecks 3. Elevated Cre Cre:1.3 * Appears near his baseline from 05/24 of 1.2 * Will monitor with daily CMP 4. Elevated ALT, Abd Distension, Weight Loss ALT: 62 * AST & Alk Phos wnl * Weight loss: 260 > 237 * Will order Abdomen US to evaluate liver 5. HFrEF Last ECHO (05/19/18): EF 45-50%, Mild concentric LVH, Mild MR, Mild LA dilation, Mild TR, AV Sclerosis, Small Pericardial effusion * Not currently on any medications * Repeating ECHO Code Status: Full Diet: CC, HHLSo Activity: Ad Monique DVT PPx: Lovenox GI PPx: Pepcid PCP: Dr. Velazquez Dispo: Tele inpt for Afib with RVR, LOS >48H. Will await cardiology recommendations and lab studies. FMR H&P: Upper Level - Plan Date/Time: 07/31/19 1242 I, Rajan Lopez MD, have evaluated this patient and agree with findings/plan as outlined by internal medicine physician resident. Pertinent changes/additions are listed here. Pradip Holley is a 63 year old M with a PMH of A fib, HTN, DM2, HLD who presented to the ED with worsening dyspnea and palpitations. He has been feeling like he was in A fib and has had dyspnea for the last month. He has been feeling chest tightness intermittently for the last few weeks. Last cath was in 2018 and he did not have any blockages and did not have any stents placed. He denies any travel, exposure to sick contacts, fever. He decided to come to the ED due to worsening dyspnea and increased freq of chest tightness. He states that he has not been taking his amiodarone or his eliquis over the last few weeks because of inability to pay. Denies any headaches, vision changes, fever, chills, n/v, diarrhea, dysuria. Last echo in May 2018 showed EF of 40-45% and he had an ablation done that month as well. Echo in 2017 showed EF of 20-25%, global hypokinesis, and left atrial appendage with small thombus. In the ED, he was given diltiazem 10 mg IVP X2, mag sulfate 2 mg, and 1 L NS. Vitals were BP 109/75, HR 98-120, RR 16, O2 sat 97% on RA, T 98.1. Labs were WBC 4.3, Hg 16.2, Mag 1.5, TSH 1.89, Trop 0.049, BUN 15, Cr 1.31. Glucose 492. CXR showed no acute cardiopulmonary process. EKG showed A fib with RVR. On exam, HEENT AT/NC, MMM, no JVD, Cardiac irregularly irregular rhythm, tachycardic, lungs CTAB, no LE edema, abd soft, diffuse TTP worse in RUQ , neg [place], Ext showed no cyanosis or edema. Admitting patient to inpatient tele for a fib with rvr. HR improved with dilt IVP. Will trend cardiac enzymes. For DM2, checking A1c, hold metformin, SSI, accuchecks ACHS, hypoglycemia protocol. Ordered Echo. Consult Dr. Bonilla who has seen patient in the past. Anticipate hospital stay >48 hours. Please see internal medicine physician note above for full H&P, which I have reviewed and agree with. Code status: Full Code Addendum - Attending - Attending Attestation Date/Time: 07/31/19 1860 I personally evaluated the patient and discussed the management with Dr. Dorys Soto I agree with the History, Examination, Assessment and Plan documented above with any addition or exceptions noted below - 63 yo M with past medical history of Afib, DM2, HTN, HLD who presented to the ED with worsening dyspnea and palpitations. He has a history of a fib and has been admitted 3 times in the last 3 years for afib with RVR. He has not been taking his amiodarone or eliquis for the last several weeks because he cannot afford it. He says he has been having symptoms for the past month that have been progressively worsening. He has had associated chest tightness, orthopnea, VIGIL. Denies any fever, chills , vision changes, headaches, n/v, diarrhea. PMH/PSH/Meds/SH reviewed and agree with resident's documentation. Afebrile VSS. Exam repeated by me and agree with resident's findings. Labs: H/H=16.2/48.5, Ly=513, K=4.3, Cr=1.3, Ekuf=108, trop= 0.049, EKG= A-fib. A/P: 1) A-fib with RVR- improved with diltiazem; consult cardiology, 2) DN2 uncontrolled - monitor BG and adjust meds as indicated. 3) H/ o ETOH use- ASE protocol; monitor signs and symptoms.
[2019-07-31] MEDS ORDERED: Aspirin Chewable 81 MG TAB ONE (13:24)
[2019-07-31] MEDS ORDERED: Ondansetron ODT 4 MG TAB PO PRN (13:25)
[2019-07-31] MEDS ORDERED: Senokot S 8.6-50 MG TAB PO PRN (13:25)
[2019-07-31] MEDS ORDERED: Insulin Regular 300 UNITS/3 ML VIAL SC PRN (13:25)
[2019-07-31] MEDS ORDERED: Acetaminophen 650 MG Suppository PR PRN (13:25)
[2019-07-31] MEDS ORDERED: Dextrose 50% Abboject 50 ML SYRINGE SLOW IVP PRN (13:25)
[2019-07-31] MEDS ORDERED: Acetaminophen 325 MG TAB PO PRN (13:25)
[2019-07-31] MEDS ORDERED: Dextrose 5% in Water 1,000 ML IV PRN (13:25)
[2019-07-31] MEDS ORDERED: Ondansetron PF 4 MG/2 ML Vial IVP PRN (13:25)
[2019-07-31 14:41] LABS: Hemoglobin A1c Greater than 14.0 % (4.0-6.0)
[2019-07-31 14:46] LABS: Cholesterol 176 mg/dl (< 200 Desired); HDL Cholesterol 44 mg/dL (>60 Neg Risk); LDL Cholesterol, Calculated 108 mg/dL; Phosphorus 3.5 mg/dL (2.3-4.7); Triglycerides 120 mg/dL (Less than 150)
[2019-07-31 15:11] VITALS: BMI 34.9
[2019-07-31] MEDS: Amiodarone 450 MG, Admixture Fee 1 EACH in Dextrose 5% in Water 250 ML IVPB SCH ×2 (15:55→22:30)
--- NOTE | 2019-07-31 15:57 | ULT ---
ABDOMEN ULTRASOUND: 07/31/19 HISTORY: Abdominal distention. COMPARISON: None. FINDINGS: The heard and proximal pancreatic body have a normal echotexture. The remainder of the pancreas is ob scured by bowel gas. Hepatic parenchyma has a normal echotexture. No hepatic masses or intrahepatic b iliary dilatation. The contour of the hepatic margin is maintained. Right hepatic lobe measures 20.9 cm. Heterogeneous echotexture limits evaluation for hepatic masses and intrahepatic biliary dilatatio n. Main portal vein is patent. Appropriate directional flow. There is a trace amount of fluid in the perihepatic region. Gallbladder wall is thickened, measuring 0.25 cm. There is no sonographic evidence of cholelithiasis. Negative Olivo's sign. Both kidneys have a normal cortical echotexture. Bilaterally, no hydronephros is. Right kidney measures 6.7 x 6.1 x 10.8 cm. Left kidney measures 6.5 x 6.9 x 12.5 cm. Suboptimal evaluation of the IVC and aorta. Visualized spleen has a normal echotexture, measuring 11.3 cm in maximum dimension. IMPRESSION: 1. Increased echogenicity of the liver which may be due to hepatic steatosis or hepatocellular d isease. Limited evaluation for hepatic masses. 2. Hepatomegaly. 3. Trace amount of free fluid in the perihepatic space. 4. Gallbladder wall thickening which may be due to acalculous cholecystitis or the presence of p erihepatic fluid. If there is concern for acalculous cholecystitis, consider HHIDA scan. POS: PPP
--- NOTE | 2019-07-31 15:59 | CON ---
DATE OF CONSULTATION: 07/31/2019 REASON FOR CONSULTATION: Atrial fibrillation with rapid ventricular response. PRIMARY HOSPITAL TELEVISION RENTAL CLERK: Harshil Bonilla MD HISTORY OF PRESENT ILLNESS: Mr. Holley is a very pleasant 63-year-old white gentleman, very well known to myself, who comes to the hospital for shortness of breath and palpitations. He initially was seen in 2018 for new onset atrial fibrillation and new onset LV dysfunction, EF was at 20% to 25% at that time. 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 He underwent YUDY for possible cardioversion and was found to have thrombus in his left atrial appendage, so he was only rate controlled and was placed on anticoagulation. He returned to the hospital eventually for atrial flutter. He was treated with flutter ablation at that time. He did not have thrombus at this time either. I have seen him a few times in the office, last time was in April of last year, at which time his atrial fibrillation was just mildly increased in the low 100s. He had an echo that showed an EF at about 45% to 50%. He was restarted on amiodarone and Eliquis was restarted as well. He was given samples and a coupon. He eventually called my office earlier this week saying that his heart was much faster than normal in the 140s and then he felt a lot more short of breath than normal. He was advised to come into the ER, but he did not come in until earlier today. He was in atrial fibrillation with rapid ventricular response. He continues to feel very short of breath when he lays down on his back and he has to sit up to breathe better. He had been going through a lot of issues with his family. He got recently, but he says that he feels a lot better now because he is picking up his life again. He has a girlfriend now and he has some things that he feels are worth taking more better care of himself and he tells me that he has decided to stop any drinking. He used to drink about four beers every day. PAST MEDICAL HISTORY: 1. Type 2 diabetes. 2. 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 3. Atrial flutter, status post ablation. 4. Atrial fibrillation, chronic, rate currently in rapid ventricular response. SURGICAL HISTORY: 1. Left shoulder surgery. 2. Appendectomy. 3. Flutter ablation. OUTPATIENT MEDICATIONS: Currently not taking any medications; however, he should be on, 1. Amiodarone. 2. Eliquis. 3. Aspirin. 4. Atorvastatin. 5. Carvedilol. 6. Lasix. 7. Lisinopril. 8. Glipizide. 9. Metformin. SOCIAL HISTORY: No tobacco or drugs. Drinks about 3 to 4 beers every day. A little more on the weekends. FAMILY HISTORY: Noncontributory. REVIEW OF SYSTEMS: Review of systems was done and was all negative unless stated in the history of present illness. PHYSICAL EXAMINATION: VITAL SIGNS: Temperature 98.6, pulse 116, respiratory rate 20, saturations 96% on room air, and blood pressure 113/72. GENERAL: Awake, alert, and oriented x3, in no distress. HEENT: Normocephalic, atraumatic. NECK: Supple. LUNGS: Clear. CARDIOVASCULAR: S1 and S2. No S3 or S4. There is a grade 2/6 systolic murmur at the right upper sternal border. ABDOMEN: Soft. Positive bowel sounds. EXTREMITIES: 2+ edema. SKIN: Warm and dry. LABORATORY DATA: Laboratory work was reviewed. White count of 4.3, hemoglobin 16, hematocrit of 48, platelet count of a 179. Chemistries; hemoglobin A1c was above assay limits of greater than 14. Creatinine was 1.31. Normal potassium. Troponin was 0.04. Triglycerides of 120. Cholesterol total 176, LDL of 108, HDL of 44. TSH is 1.8. ASSESSMENT: 1. Atrial fibrillation with rapid ventricular response. 2. Acute on chronic systolic heart failure. PLAN: 1. We will start diuresis with IV Lasix. 2. We will start Eliquis for stroke prophylaxis at 5 mg b.i.d. 3. We will restart his carvedilol at 3.125 b.i.d. 4. We will start amiodarone drip and we will try to rate control better. 5. We may have to keep him on full anticoagulation for 4 weeks before giving him a shock as we were unable to do elective transesophageal echoes at this time given the high risk of aerosols being produced from procedure and COVID-19 .. 6. Continue rate control for now. 7. Echocardiogram pending. Thank you for letting us to participate in the care of your patient. We will follow. Job ID: [id number]
[2019-07-31 16:06] LABS: Troponin I 0.038 ng/mL (< 0.028)
[2019-07-31] MEDS: Carvedilol 3.125 MG TAB PO SCH (17:43)
[2019-07-31] MEDS: Insulin Regular 300 UNITS/3 ML VIAL SC PRN (17:44)
[2019-07-31] MEDS: Famotidine 20 MG TAB PO SCH (20:40)
[2019-07-31] MEDS: Apixaban 5 MG TAB PO SCH (20:40)
[2019-07-31] MEDS: HumuLIN 70/30 (300 UNITS/3 ML VIAL) SC SCH (20:41)
[2019-07-31] MEDS: Atorvastatin Calcium 40 MG TAB PO SCH (20:41)
[2019-07-31 23:53] LABS: Troponin I 0.046 ng/mL (< 0.028)
[2019-08-01 04:17] LABS: #Eosinphils 0.1 thou/uL (0.0-0.7); #Lymphocytes 1.5 thou/uL (1.20-3.40); #Monocytes 0.5 thou/uL (0.11-0.59); #Neutrophils 2.5 thou/uL (1.40-6.50); %Basophils 0.6 % (0.0-1.0); %Eosinophils 2.5 % (0.0-10.0); %Lymphocytes 32.4 % (21.0-51.0); %Monocytes 10.8 % (0.0-10.0); %Neutrophils 53.7 % (42.0-75.0); Hemoglobin 15.3 g/dL (14.0-18.0); Mean Corpuscular HGB CONC 33.7 g/dL (32.0-36.0); Mean Corpuscular Hemoglobin 30.1 pg (27.0-31.0); Mean Corpuscular Volume 89.3 fL (78.0-98.0); Mean Platelet Volume 8.7 fL (7.4-10.4); Platelet Count 181 thou/uL (130-400); RBC Distribution Width 14.4 % (11.5-14.5); Red Blood Cell (RBC) Count 5.09 mill/uL (4.70-6.10); White Blood Cell (WBC) Count 4.7 thou/uL (4.8-10.8)
[2019-08-01 04:34] LABS: ALT (SGPT) 51 U/L (8-55); AST (SGOT) 23 U/L (5-34); Albumin 3.7 g/dL (3.4-4.8); Alkaline Phosphatase 82 U/L (40-110); Anion Gap 13 mmol/L (10-20); BUN (Urea Nitrogen) 14 mg/dL (8.4-25.7); Bilirubin, Total 0.5 mg/dL (0.2-1.2); Calc. Creatinine Clearance 118 mL/min (70-130); Calcium 8.9 mg/dL (7.8-10.44); Carbon Dioxide 21 mmol/L (23-31); Chloride 105 mmol/L (98-107); Estimated GFR-MDRD 76; Globulin 2.5 g/dL (2.4-3.5); Glucose 260 mg/dL (80-115); Protein, Total 6.2 g/dL (5.8-8.1); Sodium 135 mmol/L (136-145)
[2019-08-01] MEDS: Insulin Regular 300 UNITS/3 ML VIAL SC PRN ×4 (06:07→18:08)
[2019-08-01] MEDS: Furosemide 40 MG/4 ML VIAL SLOW IVP SCH ×2 (06:07→14:19)
--- NOTE | 2019-08-01 07:12 | PDOC.FM ---
- Subjective Subjective: He says he has RUQ pain that is worse after eating and improves with defecation. He says he has not been able to sleep here with all of the noise at night. He ate all of his breakfast. 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 He is in the process of trying to get insurance. - Objective MAR Reviewed: Yes Vital Signs & Weight: Vital Signs (12 hours) Temp Pulse Resp BP Pulse Ox 08/01/19 04:33 98.1 F 98 20 112/64 98 07/31/19 20:00 98.3 F 112 H 18 133/97 H 100 Weight Weight 107.303 kg I&O: 07/31/19 08/01/19 08/02/19 06:59 06:59 06:59 Intake Total 720 Output Total 1050 Balance -330 Result Diagrams: 08/01/19 03:53 08/01/19 03:53 EKG Reviewed by me: Yes (Afibs 80s-140s) Phys Exam - Physical Examination Constitutional: NAD HEENT: PERRLA, sclera anicteric, oral pharynx no lesions Neck: no nodes, supple Respiratory: no wheezing, no rales, no rhonchi, clear to auscultation bilateral Cardiovascular: RRR, no significant murmur Gastrointestinal: soft, non-tender, positive bowel sounds Musculoskeletal: no edema, pulses present Neurological: moves all 4 limbs Lymphatic: no nodes Psychiatric: normal affect Skin: no rash, normal turgor Dx/Plan (1) Atrial fibrillation with RVR Code(s): I48.91 - UNSPECIFIED ATRIAL FIBRILLATION Status: Acute (2) DM2 (diabetes mellitus, type 2) Status: Chronic (3) Obesity (BMI 30-39.9) Code(s): E66.9 - OBESITY, UNSPECIFIED Status: Chronic - Plan Plan: 63 yo M with past medical history of Afib, DM2, HTN, HLD who presented to the ED with worsening dyspnea and palpitations. 1. Afib with RVR, with prior Hx Prescribed amiodarone and Eliquis but unable to afford * In ED he received * Diltiazem 10 mg IVP x2 * Mag was 1.5 and replaced * 1L NS * Last ECHO (05/19/18): EF 45-50%, Mild concentric LVH, Mild MR, Mild LA dilation , Mild TR, AV Sclerosis, Small Pericardial effusion * Ablation 05/19/18 * Pt says he has a history of ECHO and Cath in 03/25, but do not have results * Lawn Care Professional, Dr. Bonilla, who was consulted by ED . * Restarted Carvedilol, Eliquis, and Amiodarone * ECHO: pending * TSH wnl * Trop: 0.049 > 0.038 > 0.040 0.046 * ASCVD: 16.7%, Restarted Statin 2. DMII B > 260 * Home Medications: Lisinopril, Metformin, ASA * SSI, Hypoglycemic Protocol * Ordered A1c * ACHS Accuchecks 3. Elevated Cre, Resolved Cre:1.3 > 1.0 * Appears near his baseline from 05/24 of .2 * Will monitor with daily CMP 4. Elevated ALT, Abd Distension, Weight Loss ALT: 62 > 51 * Weight loss: 260 > 237 * ABD US: Hepatic Steatosis vs. Hepatocellular diseas, Hepatomegaly, Trace perihepatic free fluid, Gallbladder thickening- acalculous cholecystitis vs. perihepatic fluid 5. HFrEF Last ECHO (05/19/18): EF 45-50%, Mild concentric LVH, Mild MR, Mild LA dilation, Mild TR, AV Sclerosis, Small Pericardial effusion * Not currently on any medications * ECHO pending 6. Alcohol Abuse Discussed in depth the effects alcohol is having on his body * Says he will discontinue use upon discharge * Experienced bad divorce 3 years ago Code Status: Full Diet: CC, HHLSo Activity: Ad Monique DVT PPx: Eliquis GI PPx: Pepcid PCP: Dr. Velazquez Dispo: Tele inpt for Afib with RVR, LOS >48H. Will await cardiology recommendations, ECHO, and monitor blood sugar on new regimen. Addendum - Attending - Attending Attestation Date/Time: 08/01/19 1052 I personally evaluated the patient and discussed the management with Dr. Soto I agree with the History, Examination, Assessment and Plan documented above with any addition or exceptions noted below. Will start insulin to control DM. Has been RVR on amiodarone gtt. Will bolus dilt 20 mg and start dilt gtt at 5 mg/hr for better rate control. Will await further recs from cardiology.
[2019-08-01] MEDS: Apixaban 5 MG TAB PO SCH ×2 (08:45→20:56)
[2019-08-01] MEDS: Aspirin 81 mg Enteric Coated Tablet PO SCH (08:45)
[2019-08-01] MEDS: Famotidine 20 MG TAB PO SCH ×2 (08:45→20:56)
[2019-08-01] MEDS: Carvedilol 3.125 MG TAB PO SCH ×2 (08:46→18:07)
[2019-08-01] MEDS: HumuLIN 70/30 (300 UNITS/3 ML VIAL) SC SCH ×2 (08:46→20:58)
[2019-08-01] MEDS ORDERED: Enoxaparin Sodium 40 MG/0.4 ML SYRINGE SC SCH (09:00)
[2019-08-01] MEDS ORDERED: Lisinopril 2.5 MG TAB PO SCH (09:00)
[2019-08-01] MEDS ORDERED: Diltiazem 125 MG in Sodium Chloride 0.9% 100 ML IVPB SCH (11:00)
[2019-08-01] MEDS: Amiodarone 450 MG, Admixture Fee 1 EACH in Dextrose 5% in Water 250 ML IVPB SCH (14:17)
[2019-08-01] MEDS: Diltiazem 125 MG in Sodium Chloride 0.9% 100 ML IVPB SCH (14:58)
[2019-08-01] MEDS: Atorvastatin Calcium 40 MG TAB PO SCH (20:56)
[2019-08-02] MEDS: Diltiazem 125 MG in Sodium Chloride 0.9% 100 ML IVPB SCH (00:01)
[2019-08-02] MEDS: traZODone HCl 50 MG TAB PO PRN ×2 (02:13→20:35)
[2019-08-02] MEDS: Amiodarone 450 MG, Admixture Fee 1 EACH in Dextrose 5% in Water 250 ML IVPB SCH (05:28)
[2019-08-02] MEDS ORDERED: Sodium Chloride 0.9% 250 ML IVPB SCH (05:30)
--- NOTE | 2019-08-02 06:29 | PDOC.FM ---
- Subjective Subjective: He says he slept well last night once he was able to get off to sleep. He says he is no longer having shortness of breath. - Objective MAR Reviewed: Yes Vital Signs & Weight: Vital Signs (12 hours) Temp Pulse Resp BP Pulse Ox 08/02/19 04:54 98.1 F 82 18 94/63 97 08/02/19 02:23 73 85/65 L 08/01/19 20:00 98.5 F 132 H 18 111/77 Weight Admit Weight 107.303 kg Weight 107.303 kg I&O: 07/31/19 08/01/19 08/02/19 06:59 06:59 06:59 Intake Total 720 2390 Output Total 1050 3150 Balance -330 -760 Result Diagrams: 08/02/19 09:43 08/02/19 09:43 EKG Reviewed by me: Yes (Afib 70-100s) Phys Exam - Physical Examination Constitutional: NAD HEENT: moist MMs, sclera anicteric, oral pharynx no lesions Neck: no nodes, supple Respiratory: no wheezing, no rales, no rhonchi, clear to auscultation bilateral Cardiovascular: no significant murmur Irregular rhythm Gastrointestinal: soft, non-tender, positive bowel sounds Musculoskeletal: no edema, pulses present Neurological: moves all 4 limbs Lymphatic: no nodes Psychiatric: normal affect Skin: no rash, normal turgor Dx/Plan (1) Atrial fibrillation with RVR Code(s): I48.91 - UNSPECIFIED ATRIAL FIBRILLATION Status: Acute (2) DM2 (diabetes mellitus, type 2) Status: Chronic (3) Obesity (BMI 30-39.9) Code(s): E66.9 - OBESITY, UNSPECIFIED Status: Chronic - Plan Plan: 63 yo M with past medical history of Afib, DM2, HTN, HLD who presented to the ED with worsening dyspnea and palpitations. 1. Afib with RVR, with prior Hx Prescribed amiodarone and Eliquis but unable to afford * In ED he received * Diltiazem 10 mg IVP x2 * Mag was 1.5 and replaced * 1L NS * Last ECHO (05/19/18): EF 45-50%, Mild concentric LVH, Mild MR, Mild LA dilation , Mild TR, AV Sclerosis, Small Pericardial effusion * Ablation 05/19/18 * Pt says he has a history of ECHO and Cath in 03/25, but do not have results * Proof Reader, Dr. Bonilla, who was consulted by ED MD. * Restarted Carvedilol, Eliquis, and Amiodarone * ECHO: EF: 25-30%, LV function severely depressed, mild LA dilation, moderate MR, Mild TR * TSH wnl * Trop: 0.049 > 0.038 > 0.040 0.046 * ASCVD: 16.7%, Restarted Statin * Given Dilt drip yesterday for heart rate in 120s-140s. It was later d/c and amio drip was increased. 2. DMII B-329 * Home Medications: Lisinopril, Metformin, ASA * SSI, Hypoglycemic Protocol * A1c >14 * Started on NPH 70/30 10U BID * Will adjust as needed 3. Elevated Cre, Resolved Cre:1.3 > 1.0 * Appears near his baseline from 05/24 of 1.2 * Will monitor with daily CMP 4. Elevated ALT, Abd Distension, Weight Loss ALT: 62 > 51 * Weight loss: 260 > 237 * ABD US: Hepatic Steatosis vs. Hepatocellular diseas, Hepatomegaly, Trace perihepatic free fluid, Gallbladder thickening- acalculous cholecystitis vs. perihepatic fluid 5. HFrEF Last ECHO (05/19/18): EF 45-50%, Mild concentric LVH, Mild MR, Mild LA dilation, Mild TR, AV Sclerosis, Small Pericardial effusion * Not currently on any medications * ECHO: EF: 25-30%, LV function severely depressed, mild LA dilation, moderate MR, Mild T 6. Alcohol Abuse Discussed in depth the effects alcohol is having on his body * Says he will discontinue use upon discharge * Experienced bad divorce 3 years ago Code Status: Full Diet: CC, HHLSo Activity: Ad Monique DVT PPx: Eliquis GI PPx: Pepcid PCP: Dr. Velazquez Dispo: Tele inpt for Afib with RVR, LOS >48H. Will adjust insulin and will follow cardiology recommendations. Addendum - Attending - Attending Attestation Date/Time: 08/02/19 1055 I personally evaluated the patient and discussed the management with Dr. Soto I agree with the History, Examination, Assessment and Plan documented above with any addition or exceptions noted below. EF 25% on TTE. BP low overnight. Will try to d/c IV ggt and switch TO PO. Start spironolactone. Will await cardiology recs. Will likely need lifevest but funding will be an issue.
[2019-08-02] MEDS: Carvedilol 3.125 MG TAB PO SCH ×2 (08:48→16:50)
[2019-08-02] MEDS: Famotidine 20 MG TAB PO SCH ×2 (08:48→20:36)
[2019-08-02] MEDS: Apixaban 5 MG TAB PO SCH ×2 (08:48→20:36)
[2019-08-02] MEDS: Aspirin 81 mg Enteric Coated Tablet PO SCH (08:48)
[2019-08-02] MEDS: HumuLIN 70/30 (300 UNITS/3 ML VIAL) SC SCH (08:49)
[2019-08-02 10:18] LABS: Hemoglobin 15.1 g/dL (14.0-18.0); Platelet Count 186 thou/uL (130-400)
[2019-08-02] MEDS: Insulin Regular 300 UNITS/3 ML VIAL SC PRN ×2 (13:12→17:08)
[2019-08-02] MEDS ORDERED: Amiodarone 200 MG TAB PO SCH (14:00)
[2019-08-02] MEDS ORDERED: Digoxin 0.5 MG/2 ML AMP SLOW IVP SCH ×2 (15:45→20:00)
[2019-08-02] MEDS ORDERED: Magnesium 2 GM/50 ML 2 GM in Premix Bag 1 BAG IVPB SCH (16:00)
[2019-08-02] MEDS: Amiodarone 200 MG TAB PO SCH (20:35)
[2019-08-02] MEDS: Atorvastatin Calcium 40 MG TAB PO SCH (20:35)
[2019-08-02] MEDS ORDERED: HumuLIN 70/30 (300 UNITS/3 ML VIAL) SC SCH (21:00)
--- NOTE | 2019-08-03 06:22 | PDOC.FM ---
- Subjective Subjective: Pt feeling well this AM. Walked a couple of laps w/ minimal SOB. Much improved since admission. Has noticed more swelling in his legs. Otherwise, no CP. Overnight tele a-fib 80-110s. - Objective MAR Reviewed: Yes Vital Signs & Weight: Vital Signs (12 hours) Temp Pulse Resp BP BP Pulse Ox 08/03/19 04:00 97.7 F 81 20 98/58 L 94 L 08/03/19 00:01 97.5 F L 109 H 20 140/88 93 L 08/02/19 20:34 95 08/02/19 20:30 98.2 F 101 H 20 95/71 95 Weight Admit Weight 107.303 kg Weight 107.303 kg I&O: 08/01/19 08/02/19 08/03/19 06:59 06:59 06:59 Intake Total 720 2390 1303.4 Output Total 1050 3150 2555 Balance -330 -615 -1251.6 Result Diagrams: 08/02/19 09:43 08/02/19 09:43 Phys Exam - Physical Examination Constitutional: NAD Respiratory: clear to auscultation bilateral (mild diffuse wheezing, no crackles ) Cardiovascular: no significant murmur tachycardic rate, irregularly irregular Gastrointestinal: no distention Musculoskeletal: edema present (1+ LLE up to ankle, 2+ pitting RLE up to mid- richard) Psychiatric: normal affect, A&O x 3 Dx/Plan (1) Atrial fibrillation with RVR Code(s): I48.91 - UNSPECIFIED ATRIAL FIBRILLATION Status: Acute (2) Chronic alcohol use Code(s): Z72.89 - OTHER PROBLEMS RELATED TO LIFESTYLE Status: Chronic (3) Chronic systolic heart failure Code(s): I50.22 - CHRONIC SYSTOLIC (CONGESTIVE) HEART FAILURE Status: Chronic (4) DM2 (diabetes mellitus, type 2) Status: Chronic - Plan Plan: 63 yo M with past medical history of Afib, DM2, HTN, HLD who presented to the ED with worsening dyspnea and palpitations. 1. Afib with RVR, with prior Hx, improved * Dividing Machine Operator Helper, Dr. Bonilla, who was consulted by ED MD. * Restarted Carvedilol, Eliquis, and Amiodarone PO. Off amio drip. * ASCVD: 16.7%, Restarted Statin 2. DMII * A1c >14 * Started on NPH 70/30 * Will adjust as needed 3. Elevated Cre, Resolved 4. Elevated ALT, Abd Distension, Weight Loss ALT: 62 > 51 * Weight loss: 260 > 237 * ABD US: Hepatic Steatosis vs. Hepatocellular diseas, Hepatomegaly, Trace perihepatic free fluid, Gallbladder thickening- acalculous cholecystitis vs. perihepatic fluid 5. HFrEF * ECHO: EF: 25-30%, LV function severely depressed, mild LA dilation, moderate MR, Mild T 6. Alcohol Abuse Discussed in depth the effects alcohol is having on his body * Says he will discontinue use upon discharge Code Status: Full Diet: CC, HHLSo Activity: Ad Monique DVT PPx: Elirosemary GI PPx: Pepcid PCP: Dr. Velazquez Dispo: Tele inpt for Afib with RVR, LOS >48H. Will adjust insulin and will follow cardiology recommendations. Addendum - Attending - Attending Attestation Date/Time: 08/03/19 7520 I personally evaluated the patient and discussed the management with Dr. Calles. I agree with the History, Examination, Assessment and Plan documented above with any addition or exceptions noted below. Patient here with AFib RVR on chronic Afib. Also new onset sCHF. Patient stable for discharge from cardiology standpoint, will need med assistance in outpatient setting and will discuss this with his PCP. He will need insulin therapy in outpatient setting.
[2019-08-03] MEDS ORDERED: Furosemide 40 MG TAB PO SCH (07:30)
[2019-08-03] MEDS ORDERED: Spironolactone 25 MG TAB PO SCH (08:00)
[2019-08-03 08:34] VITALS: TEMP 97.5
[2019-08-03] MEDS: Carvedilol 3.125 MG TAB PO SCH ×2 (08:45→16:44)
[2019-08-03] MEDS: Amiodarone 200 MG TAB PO SCH (08:45)
[2019-08-03] MEDS: Apixaban 5 MG TAB PO SCH (08:45)
[2019-08-03] MEDS: Aspirin 81 mg Enteric Coated Tablet PO SCH (08:45)
[2019-08-03] MEDS: Famotidine 20 MG TAB PO SCH (08:46)
[2019-08-03] MEDS ORDERED: Lisinopril 2.5 MG TAB PO SCH (09:00)
[2019-08-03] MEDS ORDERED: HumuLIN 70/30 (300 UNITS/3 ML VIAL) SC SCH (09:00)
[2019-08-03] MEDS ORDERED: Digoxin 0.125 MG TAB PO SCH (09:00)
[2019-08-03] MEDS: Insulin Regular 300 UNITS/3 ML VIAL SC PRN ×2 (11:57→17:34)
--- NOTE | 2019-08-03 12:59 | PDOC.CPN ---
- Subjective Date: 08/03/19 Time: 12:57 Interval history: He feels much better. No chest pain. Walking around without issues. - Review of Systems General: denies: fever/chills, weight/appetite/sleep changes, night sweats, fatigue Respiratory: denies: cough, congestion, shortness of breath, exercise intolerance Cardiovascular: denies: chest pain, palpitation, edema, paroxysmal nocturnal dyspnea, orthopnea Gastrointestinal: denies: nausea, vomiting, diarrhea, constipation, abd pain, GI bleeding Musculoskeletal: denies: pain, tenderness, stiffness, swelling, arthritis/ arthralgias Neurological: denies: numbness, syncope, seizure, weakness - Objective Allergies/Adverse Reactions: Allergies Allergy/AdvReac Type Severity Reaction Status Date / Time No Known Allergies Allergy Verified 07/25/19 23:43 Visit Medications: Current Medications Acetaminophen (Tylenol) 650 mg PO Q4H PRN PRN Reason: Headache/Fever/Mild Pain (1-3) Acetaminophen (Tylenol) 650 mg [place] Q4H PRN PRN Reason: Headache/Fever/Mild Pain (1-3) Amiodarone HCl (Cordarone) 400 mg PO BID [facility] Last Admin: 08/03/19 08:45 Dose: 400 mg Apixaban (Eliquis) 5 mg PO BID [facility] Last Admin: 08/03/19 08:45 Dose: 5 mg Aspirin (Ecotrin) 81 mg PO DAILY [facility] Last Admin: 08/03/19 08:45 Dose: 81 mg Atorvastatin Calcium (Lipitor) 40 mg PO HS [facility] Last Admin: 08/02/19 20:35 Dose: 40 mg Carvedilol (Coreg) 3.125 mg PO BID-WM [facility] Last Admin: 08/03/19 08:45 Dose: 3.125 mg Dextrose/Water (Dextrose 50%) 25 gm SLOW IVP PRN PRN PRN Reason: Hypoglycemia Digoxin (Lanoxin) 0.125 mg PO DAILY [facility] Last Admin: 08/03/19 08:46 Dose: 0.125 mg Famotidine (Pepcid) 20 mg PO BID [facility] Last Admin: 08/03/19 08:46 Dose: 20 mg Furosemide (Lasix) 40 mg PO DAILY-AC [facility] Last Admin: 08/03/19 08:45 Dose: 40 mg Glucagon (Glucagon) 1 mg IM PRN PRN PRN Reason: Hypoglycemia Dextrose/Water (D5w) 1,000 mls @ 0 mls/hr IV .Q0M PRN PRN Reason: Hypoglycemia Insulin Human Isoph/Insulin Regular (Humulin 70/30) 17 units SC BID [facility] Last Admin: 08/03/19 08:50 Dose: 17 unit Insulin Human Regular (Humulin R) 0 units SC .MILD SLIDING SCALE PRN PRN Reason: Mild Correctional Scale Last Admin: 08/03/19 11:57 Dose: 5 unit Insulin Human Regular (Humulin R) 0 units SC .BEDTIME SLIDING SC PRN PRN Reason: Bedtime Correctional Scale Last Admin: 08/02/19 20:33 Dose: 2 unit Lisinopril (Zestril) 1.25 mg PO DAILY [facility] Last Admin: 08/03/19 08:46 Dose: 1.25 mg Ondansetron HCl (Zofran Odt) 4 mg PO Q6H PRN PRN Reason: Nausea/Vomiting Ondansetron HCl (Zofran) 4 mg IVP Q6H PRN PRN Reason: Nausea/Vomiting Senna/Docusate Sodium (Senokot S) 2 tab PO BID PRN PRN Reason: Constipation Spironolactone (Aldactone) 12.5 mg PO QAM[facility] Last Admin: 08/03/19 08:45 Dose: 12.5 mg Trazodone HCl (Desyrel) 25 mg PO HSPRN PRN PRN Reason: Insomnia Last Admin: 08/02/19 20:35 Dose: 25 mg Vital Signs & Weight: Vital Signs Temp Pulse Resp BP BP Pulse Ox 08/03/19 11:52 18 96 08/03/19 11:15 97.5 F L 94 25 H 113/59 L 92 L 08/03/19 08:31 97.5 F L 106 H 18 119/76 97 08/03/19 04:00 97.7 F 81 20 98/58 L 94 L Admit Weight 236 lb 9 oz Weight 236 lb 9 oz - Physical Exam General: alert & oriented x3 HEENT: mucus membranes moist Neck: supple neck Cardiac: irregularly regular Lungs: clear to auscultation Neuro: grossly intact Abdomen: active bowel sounds Extremities: no edema Skin: clear Musculoskeletal: no pain - Labs Result Diagrams: 08/02/19 09:43 08/02/19 09:43 Troponin/CKMB CK-MB (CK-2) 1.4 ng/mL (0-6.6) 07/31/19 11:17 Troponin I 0.046 ng/mL (< 0.028) H 07/31/19 22:45 - Telemetry Supraventricular conduction: atrial fibrillation - Assessment/Plan Assessment/Plan: 1. Afib RVR 2. Non ischemic CM EF at 25-30% 3. Non compliance 4. Alcohol use PLAN: - Will continue rate control - Will provide coupon for Eliquis for 30 days and hopefully will be able to do cardioversion at that time. - Discharge home any time on Full dose Eliquis and current anti arrhythmic dosage. - Amiodarone load at 400 mg BID for 7 more days then 200 mg daily. - Follow up in the office in 4 weeks.
[2019-08-03 16:39] VITALS: BP 96/60
--- NOTE | 2019-08-04 11:11 | DIS ---
DATE OF ADMISSION: 07/31/2019 DATE OF DISCHARGE: 08/03/2019 RESIDENT: Velvet Calles MD DISCHARGE ATTENDING: Paxton Cuba MD CONSULTS: Cardiology. PROCEDURES: 1. Chest x-ray. Impression: No radiographic evidence of acute cardiopulmonary process. 2. Abdominal ultrasound. Impression: Increased echogenicity of the liver, which may be due to hepatic steatosis or hepatocellular disease. Hepatomegaly. Trace amount of free fluid in the perihepatic space. Gallbladder wall thickening, which may be due to acalculous cholecystitis with the presence of perihepatic fluid. 3. Echocardiogram. Left ventricular ejection fraction visually estimated at 25 % to 30%, mild dilation of left atrium, and moderate mitral regurg. PRIMARY DIAGNOSES: 1. Atrial fibrillation with rapid ventricular response with known prior history. 2. Elevated creatinine. SECONDARY DIAGNOSIS: 1. Heart failure with reduced ejection fraction. 2. Elevated ALT. 3. Type 2 diabetes, uncontrolled. 4. Chronic alcohol abuse. DISCHARGE MEDICATIONS: 1. Amiodarone 400 mg p.o. twice daily for 7 days. 2. Amiodarone 200 mg p.o. daily after finishing #1. 3. Digoxin 0.125 mg p.o. daily. 4. Humulin 70/30 of 17 units subcutaneously twice daily. 5. Spironolactone 12.5 mg p.o. every morning. 6. Metformin 1000 mg p.o. b.i.d. with meals. 7. Eliquis 5 mg p.o. twice daily. 8. Carvedilol 3.125 mg p.o. twice daily. 9. Lisinopril 1.25 mg p.o. daily. 10. Aspirin 81 mg p.o. daily. 11. Atorvastatin 40 mg p.o. at bedtime. 12. Lasix 40 mg p.o. daily. DISCONTINUED MEDICATIONS: None. HISTORY OF PRESENT ILLNESS AND HOSPITAL COURSE: Pradip Holley is a 63-year-old male with past medical history of atrial fibrillation, type 2 diabetes, hypertension , and hyperlipidemia. He presented to the emergency room with worsening dyspnea and heart palpitations. He had a known history of atrial fibrillation and had been admitted 3 times in the past 3 years for atrial fibrillation with RVR. He had previously been seeing a nurse practitioner, Shelli Broderick, in [place], but he had not seen her in about a year and was not taking his amiodarone or Eliquis as instructed. The patient reported he could not afford his medications as he does not have insurance. He has been having symptoms that have been progressively worsening. The patient endorsed chest tightness, orthopnea, and dyspnea on exertion. He denied other symptoms. He had no travel or no sick contacts. In the emergency room, he was given diltiazem 10 mg IV pushes x2, magnesium sulfate, and 1 L of normal saline. The patient's last echo was performed about 1 year ago with an EF of 45% to 50%. Repeat echo was obtained here and was noted to have a markedly reduced ejection fraction. This large decrease in ejection fraction was attributed to his atrial fibrillation with RVR, which could improve with control of his atrial fibrillation. With regard to his diabetes, the patient is very uncontrolled. On admission, his blood glucose was 492. He had an A1c which was read as greater than 14.0. His fasting lipid panel was within normal limits. His TSH was 1.87, which is also normal. His magnesium was borderline low at 1.5 and his phosphorus was normal at 3.5. His CBC was largely normal except for a low white count of 4.7. Cardiology was consulted for the patient's decreased ejection fraction. They diuresed the patient with IV Lasix and restarted his Eliquis for stroke prophylaxis. They also restarted his carvedilol. The patient was on amiodarone drip and was on this drip until his heart rate was rate controlled. He was then transitioned to oral amiodarone. The patient will be fully anticoagulated for 4 weeks before attempting electrical cardioversion. The cardiologists are not performing transesophageal echocardiograms at this time because of the risk of aerosols from the procedure and the current COVID-19 pandemic. The patient was started on 70/ 30 insulin because he is not insured and he had better blood glucose control than when he arrived. On the day of discharge, we contacted his nurse practitioner, Shelli Broderick, and she had verified that she was going to start him on insulin, but this was ordered 1 year ago and so this insulin had been thrown away as it . DISPOSITION: Stable. DISCHARGE INSTRUCTIONS: 1. Location: Home. 2. Diet: Heart healthy and consistent-carb diabetic diet. 3. Activity: As tolerated. 4. Followup: Follow up with Shelli Broderick, nurse practitioner, within 1 week. Follow up with Dr. Bonilla in 4 weeks. Job ID: [id number] [facility]
== END 2019-08-03 17:41 | disposition home or self-care (01) | DRG 308 ==
LOC: ERS 11:04 → 2NO 12:35
PROVIDERS: ADMIT Family Medicine; ATTEND Family Medicine
DX: I48.91 Unspecified atrial fibrillation (principal); I50.23 Acute on chronic systolic (congestive) heart failure; I42.8 Other cardiomyopathies; F12.10 Cannabis abuse, uncomplicated; E78.5 Hyperlipidemia, unspecified; E66.9 Obesity, unspecified; E11.9 Type 2 diabetes mellitus without complications; I11.0 Hypertensive heart disease with heart failure; F10.10 Alcohol abuse, uncomplicated; E78.00 Pure hypercholesterolemia, unspecified; Z90.49 Acquired absence of other specified parts of digestive tract; Z91.14 Patient's other noncompliance with medication regimen; Z87.891 Personal history of nicotine dependence; Z72.89 Other problems related to lifestyle
CPT/HCPCS: 36415; 36416; 71045; 80053; 80061; 82550; 82553; 82565; 83036; 83735; 84100; 84443; 84484; 85014; 85018; 85025; 85049; 93005; 93306; 93975; 96361; 96365; 96375; J0282; J1160; J1815; J1940; J3475; J3490; J7050; J7070

== ENCOUNTER 2020-07-01 13:01 | Inpatient (IN) | payer SELFPAY ==
[2020-07-01] MEDS ORDERED: Diltiazem 125 MG/25 ML ONE (13:21)
[2020-07-01] MEDS ORDERED: Metoprolol Tartrate 5 MG/5 ML VIAL ONE (13:25)
[2020-07-01 13:58] LABS: #Basophils 0.1 thou/uL (0.0-0.2); #Eosinphils 0.1 thou/uL (0.0-0.7); #Lymphocytes 1.5 thou/uL (1.20-3.40); #Monocytes 0.6 thou/uL (0.11-0.59); #Neutrophils 2.6 thou/uL (1.40-6.50); %Basophils 1.1 % (0.0-1.0); %Eosinophils 1.3 % (0.0-10.0); %Lymphocytes 30.8 % (21.0-51.0); %Monocytes 12.6 % (0.0-10.0); %Neutrophils 54.1 % (42.0-75.0); Hemoglobin 16.5 g/dL (14.0-18.0); Mean Corpuscular HGB CONC 31.2 g/dL (32.0-36.0); Mean Corpuscular Hemoglobin 28.6 pg (27.0-31.0); Mean Corpuscular Volume 91.6 fL (78.0-98.0); Mean Platelet Volume 9.5 fL (7.4-10.4); Platelet Count 179 thou/uL (130-400); RBC Distribution Width 13.3 % (11.5-14.5); Red Blood Cell (RBC) Count 5.75 mill/uL (4.70-6.10); White Blood Cell (WBC) Count 4.8 thou/uL (4.8-10.8)
[2020-07-01 14:23] LABS: ALT (SGPT) 34 U/L (8-55); AST (SGOT) 18 U/L (5-34); Albumin 3.7 g/dL (3.4-4.8); Alkaline Phosphatase 104 U/L (40-110); Anion Gap 19 mmol/L (10-20); BUN (Urea Nitrogen) 25 mg/dL (8.4-25.7); Bilirubin, Total 0.7 mg/dL (0.2-1.2); Calc. Creatinine Clearance 0 mL/min (70-130); Calcium 9.8 mg/dL (7.8-10.44); Carbon Dioxide 29 mmol/L (23-31); Chloride 86 mmol/L (98-107); Globulin 3.1 g/dL (2.4-3.5); Magnesium 1.5 mg/dL (1.6-2.6); Potassium 4.5 mmol/L (3.5-5.1); Protein, Total 6.8 g/dL (5.8-8.1); Sodium 129 mmol/L (136-145)
[2020-07-01 14:42] LABS: Glucose 719 mg/dL (80-115)
[2020-07-01 14:45] LABS: CKMB 1.1 ng/mL (0-6.6)
[2020-07-01] MEDS ORDERED: Insulin Regular 300 UNITS/3 ML VIAL ONE (14:45)
[2020-07-01] MEDS ORDERED: Magnesium 2 GM/50 ML BAG (IN WATER) ONE (15:00)
[2020-07-01] MEDS ORDERED: HumaLOG 300 UNITS/3 ML VIAL SC PRN (15:34)
[2020-07-01] MEDS ORDERED: Dextrose 5% in Water 1,000 ML IV PRN (15:34)
[2020-07-01] MEDS ORDERED: Dextrose 50% Abboject 50 ML SYRINGE SLOW IVP PRN (15:34)
[2020-07-01] MEDS ORDERED: Diltiazem 125 MG in Sodium Chloride 0.9% 100 ML IVPB SCH (15:45)
[2020-07-01 16:57] LABS: Troponin I 0.039 ng/mL (< 0.028)
[2020-07-01] MEDS ORDERED: HumaLOG 300 UNITS/3 ML VIAL ONE (18:16)
[2020-07-01] MEDS ORDERED: Sodium Chloride 0.9% 500 ML IVPB SCH (20:45)
[2020-07-01] MEDS ORDERED: Ondansetron PF 4 MG/2 ML Vial IVP PRN (21:56)
[2020-07-01 22:20] LABS: SARS-CoV-2 PCR by NAA Not Detected (NotDetected)
[2020-07-02 04:47] LABS: #Basophils 0.1 thou/uL (0.0-0.2); #Eosinphils 0.1 thou/uL (0.0-0.7); #Lymphocytes 1.8 thou/uL (1.20-3.40); #Monocytes 0.5 thou/uL (0.11-0.59); #Neutrophils 1.9 thou/uL (1.40-6.50); %Basophils 1.3 % (0.0-1.0); %Eosinophils 2.9 % (0.0-10.0); %Lymphocytes 41.5 % (21.0-51.0); %Monocytes 11.7 % (0.0-10.0); %Neutrophils 42.6 % (42.0-75.0); Hemoglobin 15.8 g/dL (14.0-18.0); Hemoglobin A1c Greater than 14.0 % (4.0-6.0); Mean Corpuscular HGB CONC 32.6 g/dL (32.0-36.0); Mean Corpuscular Hemoglobin 29.3 pg (27.0-31.0); Mean Corpuscular Volume 89.9 fL (78.0-98.0); Mean Platelet Volume 8.7 fL (7.4-10.4); Platelet Count 170 thou/uL (130-400); RBC Distribution Width 13.1 % (11.5-14.5); White Blood Cell (WBC) Count 4.4 thou/uL (4.8-10.8)
[2020-07-02 05:06] LABS: Anion Gap 17 mmol/L (10-20); BUN (Urea Nitrogen) 18 mg/dL (8.4-25.7); Calc. Creatinine Clearance 105 mL/min (70-130); Calcium 8.8 mg/dL (7.8-10.44); Carbon Dioxide 24 mmol/L (23-31); Chloride 98 mmol/L (98-107); Glucose 344 mg/dL (80-115); Magnesium 1.8 mg/dL (1.6-2.6); Potassium 3.6 mmol/L (3.5-5.1); Sodium 135 mmol/L (136-145)
[2020-07-02] MEDS ORDERED: Furosemide 20 MG/2 ML VIAL SLOW IVP SCH ×2 (06:00)
[2020-07-02] MEDS ORDERED: HumaLOG 300 UNITS/3 ML VIAL SC SCH (06:15)
[2020-07-02] MEDS: Apixaban 5 MG TAB PO SCH ×2 (07:59→20:02)
[2020-07-02] MEDS ORDERED: Magnesium 2 GM/50 ML 2 GM in Premix Bag 1 BAG IVPB SCH (08:00)
[2020-07-02 08:24] LABS: ALT (SGPT) 27 U/L (8-55); AST (SGOT) 16 U/L (5-34); Albumin 3.3 g/dL (3.4-4.8); Alkaline Phosphatase 81 U/L (40-110); Bilirubin, Direct 0.3 mg/dL (0.1-0.3); Bilirubin, Total 0.6 mg/dL (0.2-1.2); Lipase 30 U/L (8-78); Protein, Total 5.9 g/dL (5.8-8.1)
[2020-07-02] MEDS ORDERED: Dicyclomine 10 MG CAP PO PRN (08:59)
[2020-07-02] MEDS ORDERED: glipiZIDE 5 MG TAB PO SCH (09:15)
[2020-07-02] MEDS: Acetaminophen 325 MG TAB PO PRN (11:16)
[2020-07-02] MEDS: Potassium Chloride 20 MEQ TAB PO SCH (16:35)
[2020-07-02] MEDS: HumaLOG 300 UNITS/3 ML VIAL SC PRN (17:08)
[2020-07-02] MEDS: Amiodarone 450 MG in Dextrose 5% in Water 250 ML IVPB SCH (19:38)
[2020-07-03] MEDS: HumaLOG 300 UNITS/3 ML VIAL SC PRN ×5 (00:20→20:53)
[2020-07-03 04:04] LABS: #Basophils 0.1 thou/uL (0.0-0.2); #Eosinphils 0.1 thou/uL (0.0-0.7); #Lymphocytes 2.1 thou/uL (1.20-3.40); #Monocytes 0.7 thou/uL (0.11-0.59); #Neutrophils 2.5 thou/uL (1.40-6.50); %Basophils 1.8 % (0.0-1.0); %Eosinophils 1.3 % (0.0-10.0); %Lymphocytes 38.2 % (21.0-51.0); %Monocytes 13.5 % (0.0-10.0); %Neutrophils 45.3 % (42.0-75.0); Hemoglobin 15.4 g/dL (14.0-18.0); Mean Corpuscular Hemoglobin 29.8 pg (27.0-31.0); Mean Corpuscular Volume 90.2 fL (78.0-98.0); Mean Platelet Volume 8.7 fL (7.4-10.4); Platelet Count 173 thou/uL (130-400); RBC Distribution Width 13.2 % (11.5-14.5); Red Blood Cell (RBC) Count 5.18 mill/uL (4.70-6.10); White Blood Cell (WBC) Count 5.5 thou/uL (4.8-10.8)
[2020-07-03 04:26] LABS: Anion Gap 14 mmol/L (10-20); BUN (Urea Nitrogen) 12 mg/dL (8.4-25.7); Calc. Creatinine Clearance 106 mL/min (70-130); Calcium 8.5 mg/dL (7.8-10.44); Carbon Dioxide 23 mmol/L (23-31); Chloride 100 mmol/L (98-107); Glucose 390 mg/dL (80-115); Magnesium 1.8 mg/dL (1.6-2.6); Potassium 3.9 mmol/L (3.5-5.1); Sodium 133 mmol/L (136-145)
[2020-07-03] MEDS ORDERED: NPH, Human Insulin Isophane 300 UNIT/3 ML VIAL SC SCH ×2 (05:15→21:00)
[2020-07-03] MEDS: Amiodarone 450 MG in Dextrose 5% in Water 250 ML IVPB SCH (05:19)
[2020-07-03] MEDS: glipiZIDE 5 MG TAB PO SCH (09:35)
[2020-07-03] MEDS: Potassium Chloride 20 MEQ TAB PO SCH ×2 (09:35→18:04)
[2020-07-03] MEDS: Apixaban 5 MG TAB PO SCH ×2 (09:35→20:52)
[2020-07-03] MEDS: NPH, Human Insulin Isophane 300 UNIT/3 ML VIAL SC SCH (09:39)
[2020-07-03] MEDS: DOBUTamine 500 mg/250 ml 250 ML IVPB SCH (11:52)
[2020-07-03] MEDS ORDERED: Furosemide 40 MG/4 ML VIAL SLOW IVP SCH ×2 (14:00→19:15)
[2020-07-03] MEDS ORDERED: Electrolyte Replacement Protocol 1 EACH FS SCH (19:15)
[2020-07-03] MEDS ORDERED: Magnesium 2 GM/50 ML 2 GM in Premix Bag 1 BAG IVPB SCH (19:30)
[2020-07-04] MEDS: DOBUTamine 500 mg/250 ml 250 ML IVPB SCH (05:28)
[2020-07-04 06:15] LABS: Hemoglobin 15.5 g/dL (14.0-18.0); Mean Corpuscular HGB CONC 32.9 g/dL (32.0-36.0); Mean Corpuscular Hemoglobin 30.2 pg (27.0-31.0); Mean Corpuscular Volume 91.8 fL (78.0-98.0); Mean Platelet Volume 8.6 fL (7.4-10.4); Platelet Count 154 thou/uL (130-400); RBC Distribution Width 13.1 % (11.5-14.5); Red Blood Cell (RBC) Count 5.12 mill/uL (4.70-6.10); White Blood Cell (WBC) Count 5.6 thou/uL (4.8-10.8)
[2020-07-04 06:28] LABS: Anion Gap 13 mmol/L (10-20); BUN (Urea Nitrogen) 11 mg/dL (8.4-25.7); Calc. Creatinine Clearance 97 mL/min (70-130); Calcium 8.2 mg/dL (7.8-10.44); Carbon Dioxide 25 mmol/L (23-31); Chloride 102 mmol/L (98-107); Glucose 290 mg/dL (80-115); Magnesium 1.8 mg/dL (1.6-2.6); Potassium 3.8 mmol/L (3.5-5.1); Sodium 136 mmol/L (136-145)
[2020-07-04] MEDS ORDERED: Magnesium 2 GM/50 ML 2 GM in Premix Bag 1 BAG IVPB SCH (06:45)
[2020-07-04] MEDS: glipiZIDE 5 MG TAB PO SCH (08:28)
[2020-07-04 09:16] LABS: Band 7 % (5-11); Eosinophils 2 % (0-10); Lymphocytes 33 % (21-51); MDiff Complete? YES; Monocytes 18 % (0-10); Neutrophil 40 % (42-75); Platelet Morphology Comment Appears Adequate; Polychromasia SLIGHT = 2-3 cells (100X) (0-2/hpf); Stomatocytes SLIGHT = 2-5 cells (100X) (0-1/hpf)
[2020-07-04] MEDS: Apixaban 5 MG TAB PO SCH ×2 (09:56→20:44)
[2020-07-04] MEDS: Potassium Chloride 20 MEQ TAB PO SCH ×2 (09:56→16:15)
[2020-07-04] MEDS ORDERED: PROPOFOL 20 ML ONE (10:56)
[2020-07-04] MEDS: NPH, Human Insulin Isophane 300 UNIT/3 ML VIAL SC SCH (12:38)
[2020-07-04] MEDS ORDERED: Digoxin 0.5 MG/2 ML AMP SLOW IVP SCH (14:45)
[2020-07-04] MEDS: HumaLOG 300 UNITS/3 ML VIAL SC PRN ×2 (16:22→20:47)
[2020-07-04] MEDS ORDERED: Insulin Glargine 15 UNITS in Pre-Filled Syringe 1 EACH SC SCH (18:00)
[2020-07-04] MEDS: Metoprolol Tartrate 25 MG TAB PO SCH (20:45)
[2020-07-04] MEDS ORDERED: NPH, Human Insulin Isophane 300 UNIT/3 ML VIAL SC SCH (21:00)
[2020-07-05] MEDS: DOBUTamine 500 mg/250 ml 250 ML IVPB SCH (00:58)
[2020-07-05] MEDS: Amiodarone 450 MG in Dextrose 5% in Water 250 ML IVPB SCH ×2 (03:01→18:04)
[2020-07-05] MEDS ORDERED: Magnesium 2 GM/50 ML 2 GM in Premix Bag 1 BAG IVPB SCH (06:30)
[2020-07-05] MEDS: Digoxin 0.25 MG TAB PO SCH (08:10)
[2020-07-05] MEDS: Apixaban 5 MG TAB PO SCH ×2 (08:11→20:29)
[2020-07-05] MEDS: glipiZIDE 5 MG TAB PO SCH (08:11)
[2020-07-05] MEDS: Thiamine 100 MG TAB PO SCH (08:11)
[2020-07-05] MEDS: Metoprolol Tartrate 25 MG TAB PO SCH ×2 (08:11→20:29)
[2020-07-05] MEDS: Folic Acid 1 MG TAB PO SCH (08:11)
[2020-07-05] MEDS ORDERED: NPH, Human Insulin Isophane 300 UNIT/3 ML VIAL SC SCH (09:00)
[2020-07-05] MEDS: HumaLOG 300 UNITS/3 ML VIAL SC PRN (11:19)
[2020-07-05] MEDS: NPH, Human Insulin Isophane 300 UNIT/3 ML VIAL SC SCH (20:28)
[2020-07-05] MEDS: Acetaminophen 325 MG TAB PO PRN (22:15)
[2020-07-06 00:23] LABS: #Basophils 0.1 thou/uL (0.0-0.2); #Eosinphils 0.1 thou/uL (0.0-0.7); #Lymphocytes 1.7 thou/uL (1.20-3.40); #Monocytes 1.2 thou/uL (0.11-0.59); #Neutrophils 5.7 thou/uL (1.40-6.50); %Basophils 0.7 % (0.0-1.0); %Lymphocytes 19.6 % (21.0-51.0); %Monocytes 13.4 % (0.0-10.0); %Neutrophils 65.2 % (42.0-75.0); Hemoglobin 17.1 g/dL (14.0-18.0); Mean Corpuscular HGB CONC 32.1 g/dL (32.0-36.0); Mean Corpuscular Hemoglobin 29.7 pg (27.0-31.0); Mean Corpuscular Volume 92.6 fL (78.0-98.0); Mean Platelet Volume 8.8 fL (7.4-10.4); Platelet Count 176 thou/uL (130-400); RBC Distribution Width 13.2 % (11.5-14.5); Red Blood Cell (RBC) Count 5.74 mill/uL (4.70-6.10); White Blood Cell (WBC) Count 8.7 thou/uL (4.8-10.8)
[2020-07-06 00:39] LABS: Lactic Acid 2.3 mmol/L (0.5-2.2)
[2020-07-06 00:44] LABS: ALT (SGPT) 35 U/L (8-55); AST (SGOT) 41 U/L (5-34); Albumin 3.7 g/dL (3.4-4.8); Alkaline Phosphatase 113 U/L (40-110); Anion Gap 17 mmol/L (10-20); BUN (Urea Nitrogen) 16 mg/dL (8.4-25.7); Bilirubin, Direct 0.7 mg/dL (0.1-0.3); Bilirubin, Total 1.3 mg/dL (0.2-1.2); Calc. Creatinine Clearance 77 mL/min (70-130); Calcium 8.7 mg/dL (7.8-10.44); Carbon Dioxide 16 mmol/L (23-31); Chloride 101 mmol/L (98-107); Glucose 192 mg/dL (80-115); Lipase 12 U/L (8-78); Magnesium 2.2 mg/dL (1.6-2.6); Potassium 4.8 mmol/L (3.5-5.1); Protein, Total 6.9 g/dL (5.8-8.1); Sodium 129 mmol/L (136-145)
[2020-07-06 00:47] LABS: Troponin I 0.055 ng/mL (< 0.028)
[2020-07-06] MEDS ORDERED: Furosemide 40 MG/4 ML VIAL ONE (01:07)
[2020-07-06] MEDS ORDERED: Furosemide 40 MG/4 ML VIAL SLOW IVP SCH (01:30)
[2020-07-06] MEDS: glipiZIDE 5 MG TAB PO SCH (08:14)
[2020-07-06] MEDS: Digoxin 0.25 MG TAB PO SCH (08:14)
[2020-07-06] MEDS: Apixaban 5 MG TAB PO SCH ×2 (08:17→20:37)
[2020-07-06] MEDS: Folic Acid 1 MG TAB PO SCH (08:17)
[2020-07-06] MEDS: Metoprolol Tartrate 25 MG TAB PO SCH ×2 (08:17→20:37)
[2020-07-06] MEDS: Thiamine 100 MG TAB PO SCH (08:17)
[2020-07-06] MEDS: NPH, Human Insulin Isophane 300 UNIT/3 ML VIAL SC SCH ×2 (08:22→20:53)
[2020-07-06] MEDS: Amiodarone 450 MG in Dextrose 5% in Water 250 ML IVPB SCH (09:42)
[2020-07-06] MEDS: ALPRAZolam 0.25 MG TAB PO PRN ×2 (11:19→20:56)
[2020-07-06] MEDS: HumaLOG 300 UNITS/3 ML VIAL SC PRN (11:19)
[2020-07-06] MEDS: DOBUTamine 500 mg/250 ml 500 MG in Premix Bag 1 BAG IVPB SCH (12:38)
[2020-07-06] MEDS ORDERED: Furosemide 100 MG/10 ML VIAL SLOW IVP SCH (12:45)
[2020-07-06] MEDS: Furosemide 40 MG/4 ML VIAL SLOW IVP SCH (12:57)
[2020-07-07] MEDS: Amiodarone 450 MG in Dextrose 5% in Water 250 ML IVPB SCH (00:27)
[2020-07-07 04:16] LABS: Anion Gap 13 mmol/L (10-20); BUN (Urea Nitrogen) 18 mg/dL (8.4-25.7); Calc. Creatinine Clearance 85 mL/min (70-130); Calcium 8.4 mg/dL (7.8-10.44); Carbon Dioxide 25 mmol/L (23-31); Chloride 100 mmol/L (98-107); Glucose 248 mg/dL (80-115); Potassium 3.5 mmol/L (3.5-5.1); Sodium 134 mmol/L (136-145)
[2020-07-07] MEDS: DOBUTamine 500 mg/250 ml 500 MG in Premix Bag 1 BAG IVPB SCH ×2 (04:39→23:28)
[2020-07-07] MEDS: Furosemide 40 MG/4 ML VIAL SLOW IVP SCH ×2 (05:38→15:38)
[2020-07-07] MEDS: HumaLOG 300 UNITS/3 ML VIAL SC PRN ×2 (05:40→11:54)
[2020-07-07] MEDS ORDERED: Potassium Chloride 20 MEQ TAB PO SCH (06:30)
[2020-07-07] MEDS: Folic Acid 1 MG TAB PO SCH (08:06)
[2020-07-07] MEDS: Metoprolol Tartrate 25 MG TAB PO SCH ×2 (08:06→20:01)
[2020-07-07] MEDS: Digoxin 0.25 MG TAB PO SCH (08:06)
[2020-07-07] MEDS: glipiZIDE 5 MG TAB PO SCH (08:06)
[2020-07-07] MEDS: Thiamine 100 MG TAB PO SCH (08:06)
[2020-07-07] MEDS: Apixaban 5 MG TAB PO SCH ×2 (08:06→20:01)
[2020-07-07] MEDS: NPH, Human Insulin Isophane 300 UNIT/3 ML VIAL SC SCH ×3 (08:08→20:04)
[2020-07-07] MEDS: ALPRAZolam 0.25 MG TAB PO PRN (20:15)
[2020-07-08] MEDS: Acetaminophen 325 MG TAB PO PRN ×2 (01:32→16:42)
[2020-07-08] MEDS: Furosemide 40 MG/4 ML VIAL SLOW IVP SCH ×2 (05:39→14:31)
[2020-07-08] MEDS: glipiZIDE 5 MG TAB PO SCH (08:55)
[2020-07-08] MEDS: Digoxin 0.25 MG TAB PO SCH (08:55)
[2020-07-08] MEDS: Thiamine 100 MG TAB PO SCH (08:55)
[2020-07-08] MEDS: Metoprolol Tartrate 25 MG TAB PO SCH ×2 (08:56→20:58)
[2020-07-08] MEDS: Folic Acid 1 MG TAB PO SCH (08:56)
[2020-07-08] MEDS: Apixaban 5 MG TAB PO SCH ×2 (08:56→20:58)
[2020-07-08] MEDS: NPH, Human Insulin Isophane 300 UNIT/3 ML VIAL SC SCH ×2 (09:01→20:59)
[2020-07-08] MEDS: Amiodarone 450 MG in Dextrose 5% in Water 250 ML IVPB SCH ×2 (09:08→23:46)
[2020-07-08] MEDS: Potassium Chloride 20 MEQ TAB PO SCH (16:43)
[2020-07-08] MEDS: HumaLOG 300 UNITS/3 ML VIAL SC PRN (16:44)
[2020-07-08] MEDS: ALPRAZolam 0.25 MG TAB PO PRN (23:27)
[2020-07-08] MEDS: DOBUTamine 500 mg/250 ml 500 MG in Premix Bag 1 BAG IVPB SCH (23:48)
[2020-07-09 03:48] LABS: Anion Gap 15 mmol/L (10-20); BUN (Urea Nitrogen) 12 mg/dL (8.4-25.7); Calc. Creatinine Clearance 119 mL/min (70-130); Calcium 8.7 mg/dL (7.8-10.44); Carbon Dioxide 24 mmol/L (23-31); Chloride 99 mmol/L (98-107); Glucose 114 mg/dL (80-115); Potassium 4.1 mmol/L (3.5-5.1); Sodium 134 mmol/L (136-145)
[2020-07-09] MEDS: Furosemide 40 MG/4 ML VIAL SLOW IVP SCH ×2 (06:02→13:49)
[2020-07-09] MEDS: Acetaminophen 325 MG TAB PO PRN ×2 (06:06→21:09)
[2020-07-09] MEDS: Metoprolol Tartrate 25 MG TAB PO SCH ×2 (09:01→21:11)
[2020-07-09] MEDS: Folic Acid 1 MG TAB PO SCH (09:02)
[2020-07-09] MEDS: Potassium Chloride 20 MEQ TAB PO SCH ×2 (09:02→16:25)
[2020-07-09] MEDS: NPH, Human Insulin Isophane 300 UNIT/3 ML VIAL SC SCH ×2 (09:02→21:16)
[2020-07-09] MEDS: Digoxin 0.25 MG TAB PO SCH (09:02)
[2020-07-09] MEDS: Apixaban 5 MG TAB PO SCH ×2 (09:02→21:11)
[2020-07-09] MEDS: glipiZIDE 5 MG TAB PO SCH (09:02)
[2020-07-09] MEDS: Thiamine 100 MG TAB PO SCH (09:02)
[2020-07-09] MEDS: Amiodarone 450 MG in Dextrose 5% in Water 250 ML IVPB SCH (13:55)
[2020-07-09] MEDS: HumaLOG 300 UNITS/3 ML VIAL SC PRN ×2 (16:26→21:19)
[2020-07-09] MEDS: ALPRAZolam 0.25 MG TAB PO PRN (21:08)
[2020-07-10 01:27] LABS: Troponin I 0.029 ng/mL (< 0.028)
[2020-07-10] MEDS: Furosemide 40 MG/4 ML VIAL SLOW IVP SCH ×2 (06:34→14:49)
[2020-07-10] MEDS: Amiodarone 450 MG in Dextrose 5% in Water 250 ML IVPB SCH (06:42)
[2020-07-10] MEDS: Digoxin 0.25 MG TAB PO SCH (08:50)
[2020-07-10] MEDS: Thiamine 100 MG TAB PO SCH (08:50)
[2020-07-10] MEDS: Metoprolol Tartrate 25 MG TAB PO SCH ×2 (08:50→19:52)
[2020-07-10] MEDS: Folic Acid 1 MG TAB PO SCH (08:50)
[2020-07-10] MEDS: Potassium Chloride 20 MEQ TAB PO SCH ×2 (08:50→16:30)
[2020-07-10] MEDS: NPH, Human Insulin Isophane 300 UNIT/3 ML VIAL SC SCH ×2 (08:50→20:39)
[2020-07-10] MEDS: glipiZIDE 5 MG TAB PO SCH (08:50)
[2020-07-10] MEDS: Apixaban 5 MG TAB PO SCH ×2 (08:50→19:52)
[2020-07-10 10:28] LABS: Troponin I 0.026 ng/mL (< 0.028)
[2020-07-10] MEDS: Acetaminophen 325 MG TAB PO PRN (19:51)
[2020-07-10] MEDS: ALPRAZolam 0.25 MG TAB PO PRN (19:52)
[2020-07-11] MEDS: Amiodarone 200 MG TAB PO SCH ×2 (09:23→21:07)
[2020-07-11] MEDS: NPH, Human Insulin Isophane 300 UNIT/3 ML VIAL SC SCH ×2 (09:23→21:10)
[2020-07-11] MEDS: Furosemide 40 MG TAB PO SCH (09:23)
[2020-07-11] MEDS: Metoprolol Tartrate 25 MG TAB PO SCH ×2 (09:23→21:07)
[2020-07-11] MEDS: Spironolactone 25 MG TAB PO SCH (09:23)
[2020-07-11] MEDS: Folic Acid 1 MG TAB PO SCH (09:23)
[2020-07-11] MEDS: Potassium Chloride 20 MEQ TAB PO SCH (09:23)
[2020-07-11] MEDS: glipiZIDE 5 MG TAB PO SCH (09:23)
[2020-07-11] MEDS: Digoxin 0.25 MG TAB PO SCH (09:23)
[2020-07-11] MEDS: Apixaban 5 MG TAB PO SCH ×2 (09:23→21:07)
[2020-07-11] MEDS: Thiamine 100 MG TAB PO SCH (09:24)
[2020-07-11] MEDS ORDERED: Lisinopril 2.5 MG TAB PO SCH (13:30)
[2020-07-11] MEDS: Acetaminophen 325 MG TAB PO PRN (18:01)
[2020-07-11] MEDS: HumaLOG 300 UNITS/3 ML VIAL SC PRN (18:02)
[2020-07-11] MEDS: ALPRAZolam 0.25 MG TAB PO PRN (21:07)
[2020-07-12] MEDS: HumaLOG 300 UNITS/3 ML VIAL SC PRN (05:44)
[2020-07-12] MEDS: Folic Acid 1 MG TAB PO SCH (07:56)
[2020-07-12] MEDS: Spironolactone 25 MG TAB PO SCH (07:56)
[2020-07-12] MEDS: Digoxin 0.25 MG TAB PO SCH (07:56)
[2020-07-12] MEDS: Furosemide 40 MG TAB PO SCH (07:56)
[2020-07-12] MEDS: glipiZIDE 5 MG TAB PO SCH (07:56)
[2020-07-12] MEDS: Metoprolol Tartrate 25 MG TAB PO SCH (07:56)
[2020-07-12] MEDS: Apixaban 5 MG TAB PO SCH (07:56)
[2020-07-12] MEDS: Thiamine 100 MG TAB PO SCH (07:56)
[2020-07-12] MEDS: Amiodarone 200 MG TAB PO SCH (07:56)
[2020-07-12] MEDS: NPH, Human Insulin Isophane 300 UNIT/3 ML VIAL SC SCH (07:57)
[2020-07-12] MEDS ORDERED: Lisinopril 2.5 MG TAB PO SCH (09:00)
[2020-07-12 10:23] VITALS: BMI 29.9
[2020-07-12 11:28] VITALS: BP 105/65; TEMP 97.4
== END 2020-07-12 13:45 | disposition home or self-care (01) | DRG 291 ==
LOC: ERS 13:01 → ERHOLD 15:00 → 2NO 19:16 → CCU 07-02 18:17 → IMCU/EMU 07-02 22:24 → 2NO 07-10 16:35
PROVIDERS: ADMIT Internal Medicine; ATTEND Family Medicine
PROC: B24BZZ4 Ultrasonography of Heart with Aorta, Transesophageal (ICD-10-PCS; principal; 2020-07-05)
DX: I13.2 Hypertensive heart and chronic kidney disease with heart failure and with stage 5 chronic kidney disease, or end stage renal disease (principal); I50.23 Acute on chronic systolic (congestive) heart failure; J96.90 Respiratory failure, unspecified, unspecified whether with hypoxia or hypercapnia; N17.9 Acute kidney failure, unspecified; T82.868A Thrombosis due to vascular prosthetic devices, implants and grafts, initial encounter; I82.612 Acute embolism and thrombosis of superficial veins of left upper extremity; E87.1 Hypo-osmolality and hyponatremia; Z20.822 Contact with and (suspected) exposure to COVID-19; I42.0 Dilated cardiomyopathy; I51.3 Intracardiac thrombosis, not elsewhere classified; E11.65 Type 2 diabetes mellitus with hyperglycemia; E83.42 Hypomagnesemia; F10.10 Alcohol abuse, uncomplicated; N18.2 Chronic kidney disease, stage 2 (mild); E11.22 Type 2 diabetes mellitus with diabetic chronic kidney disease; E87.6 Hypokalemia; I48.0 Paroxysmal atrial fibrillation; Y83.8 Other surgical procedures as the cause of abnormal reaction of the patient, or of later complication, without mention of misadventure at the time of the procedure; E78.5 Hyperlipidemia, unspecified; E78.00 Pure hypercholesterolemia, unspecified; E66.9 Obesity, unspecified; Z91.14 Patient's other noncompliance with medication regimen; Z90.49 Acquired absence of other specified parts of digestive tract; Z87.891 Personal history of nicotine dependence; Z79.82 Long term (current) use of aspirin; Z79.899 Other long term (current) drug therapy; Z79.4 Long term (current) use of insulin; Z68.29 Body mass index [BMI] 29.0-29.9, adult
CPT/HCPCS: 36415; 36416; 71045; 76705; 80048; 80053; 80076; 82553; 83036; 83605; 83690; 83735; 83880; 84443; 84484; 85025; 87040; 87635; 92960; 93005; 93010; 93306; 93312; 93798; 94640; 96365; 96375; J0282; J1160; J1250; J1815; J1940; J2704; J3475; J7030; J7070; J7620; U0003; U0005

== ENCOUNTER 2020-09-01 08:35 | Observation (INO) | payer SELFPAY ==
[2020-09-01] MEDS ORDERED: Aspirin Chewable 81 MG TAB ONE (09:01)
[2020-09-01 09:35] LABS: #Basophils 0.1 thou/uL (0.0-0.2); #Eosinphils 0.2 thou/uL (0.0-0.7); #Lymphocytes 1.8 thou/uL (1.20-3.40); #Monocytes 0.6 thou/uL (0.11-0.59); %Basophils 1.6 % (0.0-1.0); %Eosinophils 3.1 % (0.0-10.0); %Lymphocytes 32.6 % (21.0-51.0); %Monocytes 10.2 % (0.0-10.0); %Neutrophils 52.6 % (42.0-75.0); Hemoglobin 16.9 g/dL (14.0-18.0); Mean Corpuscular HGB CONC 32.9 g/dL (32.0-36.0); Mean Corpuscular Hemoglobin 29.4 pg (27.0-31.0); Mean Corpuscular Volume 89.3 fL (78.0-98.0); Mean Platelet Volume 9.1 fL (7.4-10.4); Platelet Count 201 thou/uL (130-400); RBC Distribution Width 13.9 % (11.5-14.5); Red Blood Cell (RBC) Count 5.74 mill/uL (4.70-6.10); White Blood Cell (WBC) Count 5.6 thou/uL (4.8-10.8)
[2020-09-01 10:18] LABS: ALT (SGPT) 17 U/L (8-55); AST (SGOT) 21 U/L (5-34); Albumin 4.4 g/dL (3.4-4.8); Alkaline Phosphatase 51 U/L (40-110); Anion Gap 20 mmol/L (10-20); BUN (Urea Nitrogen) 29 mg/dL (8.4-25.7); Bilirubin, Total 0.5 mg/dL (0.2-1.2); Calc. Creatinine Clearance 0 mL/min (70-130); Calcium 10.6 mg/dL (7.8-10.44); Carbon Dioxide 26 mmol/L (23-31); Chloride 96 mmol/L (98-107); Globulin 3.8 g/dL (2.4-3.5); Glucose 183 mg/dL (80-115); Protein, Total 8.2 g/dL (5.8-8.1); Sodium 137 mmol/L (136-145)
[2020-09-01] MEDS ORDERED: Acetaminophen 325 MG TAB PO PRN (12:16)
[2020-09-01] MEDS ORDERED: Ondansetron ODT 4 MG TAB SL PRN (12:30)
[2020-09-01] MEDS ORDERED: Ondansetron PF 4 MG/2 ML Vial IVP PRN (12:30)
[2020-09-01 12:33] VITALS: BMI 30.8
[2020-09-01 12:45] LABS: Troponin I 0.014 ng/mL (< 0.028)
[2020-09-01 15:38] LABS: Troponin I Less than 0.010 ng/mL (< 0.028)
[2020-09-01] MEDS ORDERED: Dextrose 50% Abboject 50 ML SYRINGE SLOW IVP PRN (19:30)
[2020-09-01] MEDS ORDERED: HumaLOG 300 UNITS/3 ML VIAL SC PRN (19:30)
[2020-09-01] MEDS ORDERED: Dextrose 5% in Water 1,000 ML IV PRN (19:30)
[2020-09-01] MEDS: Apixaban 5 MG TAB PO SCH (19:47)
[2020-09-01] MEDS: HumaLOG 300 UNITS/3 ML VIAL SC PRN (19:47)
[2020-09-02 05:51] LABS: Anion Gap 10 mmol/L (10-20); BUN (Urea Nitrogen) 21 mg/dL (8.4-25.7); Calc. Creatinine Clearance 87 mL/min (70-130); Calcium 9.2 mg/dL (7.8-10.44); Carbon Dioxide 28 mmol/L (23-31); Chloride 102 mmol/L (98-107); Glucose 144 mg/dL (80-115); Potassium 4.4 mmol/L (3.5-5.1); Sodium 136 mmol/L (136-145)
[2020-09-02] MEDS: Apixaban 5 MG TAB PO SCH (07:41)
[2020-09-02 08:25] LABS: SARS-CoV-2 PCR by NAA Not Detected (NotDetected)
[2020-09-02] MEDS ORDERED: Aspirin 81 mg Enteric Coated Tablet PO SCH (09:00)
[2020-09-02 11:27] VITALS: BP 102/66; TEMP 97.9
[2020-09-02] MEDS: HumaLOG 300 UNITS/3 ML VIAL SC PRN (12:30)
== END 2020-09-02 13:42 | disposition home or self-care (01) ==
LOC: ERS 08:35 → SUATTDRO 08:35 → 2SW 10:55
PROVIDERS: ADMIT Hospitalist; ATTEND Hospitalist
DX: R53.83 Other fatigue (principal); R07.89 Other chest pain; I11.0 Hypertensive heart disease with heart failure; I50.22 Chronic systolic (congestive) heart failure; N17.9 Acute kidney failure, unspecified; I48.0 Paroxysmal atrial fibrillation; E11.9 Type 2 diabetes mellitus without complications; R00.1 Bradycardia, unspecified; I95.9 Hypotension, unspecified; I42.8 Other cardiomyopathies; I08.3 Combined rheumatic disorders of mitral, aortic and tricuspid valves; E78.5 Hyperlipidemia, unspecified; E78.00 Pure hypercholesterolemia, unspecified; Z87.891 Personal history of nicotine dependence; Z79.01 Long term (current) use of anticoagulants; Z79.82 Long term (current) use of aspirin; Z79.84 Long term (current) use of oral hypoglycemic drugs; Z79.899 Other long term (current) drug therapy; Z20.822 Contact with and (suspected) exposure to COVID-19
CPT/HCPCS: 36415; 36416; 71045; 80048; 80053; 83880; 84484; 85025; 87635; 93005; 93306; G0378; J1815; U0003; U0005

== ENCOUNTER 2024-12-11 11:36 | Outpatient (CLI) | payer OTHER, MEDICARE ==
[2024-12-11 13:12] LABS: #Basophils 0.04 10x3/uL (0.0-0.2); #Eosinophils 0.31 10x3/uL (0.0-0.7); #Monocytes 0.63 10x3/uL (0.11-0.59); #Neutrophils 2.54 10x3/uL (1.40-6.50); %Basophils 0.8 % (0.0-1.0); %Eosinophils 6.2 % (0.0-10.0); %Lymphocytes 29.1 % (21.0-51.0); %Monocytes 12.6 % (0.0-10.0); %Neutrophils 50.9 % (42.0-75.0); Hematocrit 51.1 % (42.0-52.0); Hemoglobin 16.0 g/dL (14.0-18.0); Mean Corpuscular Hemoglobin 28.7 pg (27.0-31.0); Mean Corpuscular Volume 91.6 fL (78.0-98.0); Platelet Count 263 10x3/uL (130-400); Red Blood Cell (RBC) Count 5.58 mill/uL (4.70-6.10); White Blood Cell (WBC) Count 4.99 10x3/uL (4.8-10.8)
[2024-12-11 13:38] LABS: Anion Gap 12 mmol/L (10-20); BUN (Urea Nitrogen) 22 mg/dL (8.4-25.7); Calc. Creatinine Clearance 0 mL/min (70-130); Calcium 9.0 mg/dL (7.8-10.44); Carbon Dioxide 27 mmol/L (23-31); Chloride 103 mmol/L (98-107); Glucose 196 mg/dL (80-115); Potassium 4.8 mmol/L (3.5-5.1); Sodium 137 mmol/L (136-145)
== END 2024-12-11 11:37 | disposition home or self-care (01) ==
LOC: LABBT 11:36
PROVIDERS: ATTEND Internal Medicine Cardiovascular Disease
DX: Z01.812 Encounter for preprocedural laboratory examination (principal); I48.91 Unspecified atrial fibrillation
CPT/HCPCS: 80048; 85025

== ENCOUNTER 2024-12-18 09:15 | Day surgery (SDC) | payer OTHER, MEDICARE ==
[2024-12-11 11:46] VITALS: BMI 35.1
[2024-12-18] MEDS ORDERED: PROPOFOL 20 ML ONE (10:26)
[2024-12-18] MEDS ORDERED: PHENYLEPHRINE-NS 100 MCG/ML 10 ML SYRINGE ONE (11:42)
[2024-12-18] MEDS ORDERED: Lidocaine 1% PF 5 ML VIAL ONE (11:42)
== END 2024-12-18 13:00 | disposition home or self-care (01) ==
LOC: SDC 09:15
PROVIDERS: ATTEND Internal Medicine Cardiovascular Disease
PROC: B24BZZ4 Ultrasonography of Heart with Aorta, Transesophageal (ICD-10-PCS; principal; 2024-12-18)
DX: I48.91 Unspecified atrial fibrillation (principal); I42.0 Dilated cardiomyopathy; I48.3 Typical atrial flutter; I42.8 Other cardiomyopathies; E11.9 Type 2 diabetes mellitus without complications; E78.5 Hyperlipidemia, unspecified; F10.10 Alcohol abuse, uncomplicated; Y90.9 Presence of alcohol in blood, level not specified; Z87.891 Personal history of nicotine dependence; Z90.49 Acquired absence of other specified parts of digestive tract; Z79.82 Long term (current) use of aspirin; Z79.84 Long term (current) use of oral hypoglycemic drugs; Z79.01 Long term (current) use of anticoagulants; Z79.899 Other long term (current) drug therapy
CPT/HCPCS: 92960; 93005; 93010; 93312; J2704

== ENCOUNTER 2025-02-01 06:06 | Day surgery (SDC) | payer OTHER, MEDICARE ==
[2025-01-29 12:01] VITALS: BMI 34.9
[2025-02-01 06:28] LABS: #Basophils 0.05 10x3/uL (0.0-0.2); #Eosinophils 0.15 10x3/uL (0.0-0.7); #Monocytes 0.63 10x3/uL (0.11-0.59); #Neutrophils 3.36 10x3/uL (1.40-6.50); %Basophils 0.8 % (0.0-1.0); %Eosinophils 2.5 % (0.0-10.0); %Lymphocytes 29.8 % (21.0-51.0); %Monocytes 10.5 % (0.0-10.0); %Neutrophils 55.9 % (42.0-75.0); Hematocrit 50.4 % (42.0-52.0); Hemoglobin 16.0 g/dL (14.0-18.0); Mean Corpuscular Hemoglobin 27.9 pg (27.0-31.0); Mean Corpuscular Volume 88.0 fL (78.0-98.0); Platelet Count 233 10x3/uL (130-400); Red Blood Cell (RBC) Count 5.73 mill/uL (4.70-6.10); White Blood Cell (WBC) Count 6.01 10x3/uL (4.8-10.8)
[2025-02-01 06:47] LABS: Anion Gap 15 mmol/L (10-20); BUN (Urea Nitrogen) 24 mg/dL (8.4-25.7); Calc. Creatinine Clearance 96 mL/min (70-130); Calcium 9.4 mg/dL (7.8-10.44); Carbon Dioxide 23 mmol/L (23-31); Chloride 104 mmol/L (98-107); Glucose 274 mg/dL (80-115); Potassium 4.7 mmol/L (3.5-5.1); Sodium 137 mmol/L (136-145)
[2025-02-01] MEDS ORDERED: Lidocaine 1% PF 5 ML VIAL ONE (07:06)
[2025-02-01] MEDS ORDERED: PROPOFOL 20 ML ONE (07:07)
[2025-02-01] MEDS ORDERED: PHENYLEPHRINE-NS 100 MCG/ML 10 ML SYRINGE ONE (07:26)
== END 2025-02-01 10:06 | disposition home or self-care (01) ==
LOC: SDC 06:06
PROVIDERS: ATTEND Internal Medicine Cardiovascular Disease
PROC: B24BZZ4 Ultrasonography of Heart with Aorta, Transesophageal (ICD-10-PCS; principal; 2025-02-01)
PROC: 5A2204Z Restoration of Cardiac Rhythm, Single (ICD-10-PCS; principal; 2025-02-01)
DX: I48.19 Other persistent atrial fibrillation (principal); I42.0 Dilated cardiomyopathy; I42.8 Other cardiomyopathies; I48.3 Typical atrial flutter; I08.1 Rheumatic disorders of both mitral and tricuspid valves; E11.9 Type 2 diabetes mellitus without complications; E78.5 Hyperlipidemia, unspecified; F10.10 Alcohol abuse, uncomplicated; Y90.9 Presence of alcohol in blood, level not specified; Z87.891 Personal history of nicotine dependence; Z90.49 Acquired absence of other specified parts of digestive tract; Z79.82 Long term (current) use of aspirin; Z79.84 Long term (current) use of oral hypoglycemic drugs; Z79.899 Other long term (current) drug therapy
CPT/HCPCS: 36415; 80048; 85025; 92960; 93005; 93010; 93312; J2704

== ENCOUNTER 2025-02-12 07:48 | Day surgery (SDC) | payer MEDICARE ==
[2025-02-11 10:17] VITALS: BMI 34.9
[2025-02-12] MEDS ORDERED: PROPOFOL 20 ML ONE (12:24)
[2025-02-12] MEDS ORDERED: Lidocaine 1% PF 5 ML VIAL ONE (12:24)
[2025-02-12] MEDS ORDERED: PHENYLEPHRINE-NS 100 MCG/ML 10 ML SYRINGE ONE (12:29)
== END 2025-02-12 13:47 | disposition home or self-care (01) ==
LOC: SDC 07:48
PROVIDERS: ATTEND Internal Medicine Cardiovascular Disease
PROC: 5A2204Z Restoration of Cardiac Rhythm, Single (ICD-10-PCS; principal; 2025-02-12)
DX: I48.19 Other persistent atrial fibrillation (principal); I42.0 Dilated cardiomyopathy; I42.8 Other cardiomyopathies; I48.3 Typical atrial flutter; E11.9 Type 2 diabetes mellitus without complications; E78.5 Hyperlipidemia, unspecified; F10.10 Alcohol abuse, uncomplicated; Y90.9 Presence of alcohol in blood, level not specified; Z87.891 Personal history of nicotine dependence; Z90.49 Acquired absence of other specified parts of digestive tract; Z79.84 Long term (current) use of oral hypoglycemic drugs; Z79.01 Long term (current) use of anticoagulants; Z79.899 Other long term (current) drug therapy
CPT/HCPCS: 92960; J2704

== ENCOUNTER 2025-03-03 11:36 | Observation (INO) | payer MEDICARE, OTHER ==
[2025-03-01 10:23] LABS: #Basophils 0.05 10x3/uL (0.0-0.2); #Eosinophils 0.16 10x3/uL (0.0-0.7); #Monocytes 0.71 10x3/uL (0.11-0.59); #Neutrophils 3.32 10x3/uL (1.40-6.50); %Basophils 0.9 % (0.0-1.0); %Eosinophils 2.8 % (0.0-10.0); %Lymphocytes 24.6 % (21.0-51.0); %Monocytes 12.5 % (0.0-10.0); %Neutrophils 58.7 % (42.0-75.0); Hematocrit 52.7 % (42.0-52.0); Hemoglobin 16.9 g/dL (14.0-18.0); Mean Corpuscular Hemoglobin 27.5 pg (27.0-31.0); Mean Corpuscular Volume 85.8 fL (78.0-98.0); Platelet Count 224 10x3/uL (130-400); Red Blood Cell (RBC) Count 6.14 mill/uL (4.70-6.10); White Blood Cell (WBC) Count 5.66 10x3/uL (4.8-10.8)
[2025-03-01 10:29] LABS: INR-International Normal Ratio 1.2; PTT 33.3 sec (22.9-36.1); Prothrombin Time 15.3 sec (12.0-14.7)
[2025-03-02 10:20] LABS: ALT (SGPT) 19 U/L (Less than 45); AST (SGOT) 17 U/L (11-34); Albumin 4.2 g/dL (3.1-4.5); Alkaline Phosphatase 58 U/L (40-110); Anion Gap 17 mmol/L (10-20); BUN (Urea Nitrogen) 22 mg/dL (8.4-25.7); Bilirubin, Total 0.4 mg/dL (0.3-1.2); Calc. Creatinine Clearance 103 mL/min (70-130); Calcium 9.8 mg/dL (7.8-10.44); Carbon Dioxide 23 mmol/L (23-31); Chloride 101 mmol/L (98-107); Globulin 3.2 g/dL (2.4-3.5); Glucose 163 mg/dL (80-115); Potassium 5.2 mmol/L (3.5-5.1); Sodium 136 mmol/L (136-145)
[2025-03-03] MEDS ORDERED: Heparin 10,000 UNITS/ 10 ML VIAL ONE (11:58)
[2025-03-03] MEDS ORDERED: Isoproterenol 0.2 MG/1 ML AMP ONE (11:59)
[2025-03-03] MEDS ORDERED: Etomidate 40 MG (20 mL) VIAL ONE (13:39)
[2025-03-03] MEDS ORDERED: Lidocaine 1% PF 5 ML VIAL ONE (14:14)
[2025-03-03] MEDS ORDERED: Nitroglycerin 50 MG/250 ML BOT 250 ML ONE (15:50)
[2025-03-03] MEDS ORDERED: Rocuronium Bromide 10 MG/ML (10ML VIAL) ONE (15:52)
[2025-03-03] MEDS ORDERED: Ondansetron PF 4 MG/2 ML Vial ONE (15:53)
[2025-03-03] MEDS ORDERED: PHENYLEPHRINE-NS 100 MCG/ML 10 ML SYRINGE ONE ×2 (15:56→18:31)
[2025-03-03] MEDS ORDERED: SUGAMMADEX SODIUM 200 MG/2 ML VIAL ONE (16:22)
[2025-03-03] MEDS ORDERED: Furosemide 40 MG (4 mL) VIAL ONE (16:26)
[2025-03-03] MEDS ORDERED: Melatonin 3 MG TAB PO PRN (17:16)
[2025-03-03] MEDS ORDERED: Acetaminophen/Codeine 30-300mg Tablet PO PRN (17:16)
[2025-03-03] MEDS ORDERED: Senokot S 8.6-50 MG TAB PO PRN (17:16)
[2025-03-03] MEDS ORDERED: Acetaminophen 325 MG TAB PO PRN (17:16)
[2025-03-03] MEDS ORDERED: Glucagon 1 MG/ML KIT IM PRN (17:23)
[2025-03-03] MEDS ORDERED: Dextrose 50% Abboject 50 ML SYRINGE SLOW IVP PRN (17:23)
[2025-03-03] MEDS: Apixaban 5 MG TAB PO SCH (21:00)
[2025-03-03] MEDS: Sacubitril 24MG/Valsartan 26 MG TAB PO SCH (21:00)
[2025-03-03 22:00] VITALS: BMI 34.2
[2025-03-04] MEDS ORDERED: PHOS-NAK 1 PKT PACK PO PRN (06:00)
[2025-03-04] MEDS ORDERED: Potassium Chloride 20 MEQ in Premix 1 BAG IVPB PRN (06:00)
[2025-03-04] MEDS: Furosemide 40 MG (4 mL) VIAL SLOW IVP SCH (06:22)
[2025-03-04 07:05] LABS: #Basophils 0.03 10x3/uL (0.0-0.2); #Eosinophils Less than 0.03 10x3/uL (0.0-0.7); #Monocytes 0.74 10x3/uL (0.11-0.59); #Neutrophils 6.66 10x3/uL (1.40-6.50); %Basophils 0.4 % (0.0-1.0); %Eosinophils 0.1 % (0.0-10.0); %Lymphocytes 7.7 % (21.0-51.0); %Monocytes 9.1 % (0.0-10.0); %Neutrophils 82.2 % (42.0-75.0); Hematocrit 44.3 % (42.0-52.0); Hemoglobin 14.2 g/dL (14.0-18.0); Mean Corpuscular Hemoglobin 27.8 pg (27.0-31.0); Mean Corpuscular Volume 86.9 fL (78.0-98.0); Platelet Count 204 10x3/uL (130-400); Red Blood Cell (RBC) Count 5.10 mill/uL (4.70-6.10); White Blood Cell (WBC) Count 8.10 10x3/uL (4.8-10.8)
[2025-03-04 07:20] LABS: Albumin 3.5 g/dL (3.1-4.5); Anion Gap 13 mmol/L (10-20); BUN (Urea Nitrogen) 25 mg/dL (8.4-25.7); BUN/Creatinine Ratio 20.49; Calc. Creatinine Clearance 88 mL/min (70-130); Calcium 8.4 mg/dL (7.8-10.44); Carbon Dioxide 25 mmol/L (23-31); Chloride 101 mmol/L (98-107); Glucose 324 mg/dL (80-115); Magnesium 1.7 mg/dL (1.6-2.6); Potassium 4.7 mmol/L (3.5-5.1); Sodium 134 mmol/L (136-145)
[2025-03-04 08:37] VITALS: BP 93/56; TEMP 97.3
[2025-03-04] MEDS: Magnesium 2 GM/50 ML(in water) 2 GM in Premix 1 BAG IVPB PRN (11:40)
== END 2025-03-04 13:05 | disposition home or self-care (01) ==
LOC: SDC 11:36 → OBS 17:25
PROVIDERS: ADMIT Student in an Organized Health Care Education/Training Program; ATTEND Internal Medicine
PROC: 4A023FZ Measurement of Cardiac Rhythm, Percutaneous Approach (ICD-10-PCS; principal; 2025-03-03)
PROC: 02583ZZ Destruction of Conduction Mechanism, Percutaneous Approach (ICD-10-PCS; 2025-03-03)
DX: I48.19 Other persistent atrial fibrillation (principal); I48.3 Typical atrial flutter; I11.0 Hypertensive heart disease with heart failure; I50.20 Unspecified systolic (congestive) heart failure; I43 Cardiomyopathy in diseases classified elsewhere; E11.9 Type 2 diabetes mellitus without complications; E78.5 Hyperlipidemia, unspecified; Z90.49 Acquired absence of other specified parts of digestive tract; Z98.890 Other specified postprocedural states; Z79.01 Long term (current) use of anticoagulants; Z79.84 Long term (current) use of oral hypoglycemic drugs; Z79.899 Other long term (current) drug therapy
CPT/HCPCS: 80053; 82962; 85025; 85347 ×2; 85610; 85730; 86850; 86900; 86901; 93623; 93655; 93656; 93657; C1730 ×2; C1733; C1759; C1760; C1766; C1769; C1893; C1894 ×2; J1100; J1644 ×2; J1815; J1940; J2250; J2405; J2720; J3010; 36415; 36416; 80069; 83735; 93005; 93010; J3475